=== PATIENT | female | born 1945 | race Caucasian/White ===

== ENCOUNTER → 2016-11-19 | Day surgery (SDC) | payer MEDICARE, OTHER ==
[~2016-11-19] VITALS: Ht 154.9 cm; Wt 63.5 kg
[~2016-11-19] MED LIST: CHLO25TA2 PO; HYALURONIDASE/LIDOCAINE/EPINEPHRINE/BUPIVACAINE 4.5 ML SYR LEFT EYE ONE; HYALURONIDASE/LIDOCAINE/EPINEPHRINE/BUPIVACAINE 6 ML SYR LEFT EYE ONE; HYALURONIDASE/LIDOCAINE/EPINEPHRINE/BUPIVACAINE 6 ML SYR ONE; K-TA10TA PO; MOBI15TA PO; NIFE30TA61 PO; PANT40TA3 PO; PROPARACAINE HCL 0.5% OPHT SOLN 15 ML BTL LEFT EYE ONE; TOBRAMYCIN/DEXAMETHASONE OPTH OINT 3.5 GM TUBE LEFT EYE ONE; TRAM50TA PO; VITA10003 PO; ZYRT10CA PO
[2016-11-19 08:00] VITALS: BP 139/77; PULSE 100; RESP 16; TEMP 98.1; O2SAT 99
[2016-11-19 08:05] VITALS: PULSE 100
[2016-11-19] MEDS: TROPICAMIDE 1% OPHT SOLN 15 ML BTL LEFT EYE SCH ×4 (08:10→08:25)
[2016-11-19] MEDS: CYCLOPENTOLATE HCL 1% OPHT SOLN 2 ML BTL LEFT EYE SCH ×4 (08:10→08:25)
[2016-11-19] MEDS: FLURBIPROFEN 0.03% OPHT SOLN 2.5 ML BTL LEFT EYE SCH ×4 (08:10→08:25)
[2016-11-19] MEDS: PHENYLEPHRINE HCL 10% OPTH SOLN 5 ML BTL LEFT EYE SCH ×4 (08:10→08:25)
[2016-11-19] MEDS: SODIUM CHLORID 0.9% 500 ML INJ 500 ML ONE ×2 (08:49→10:00)
[2016-11-19] MEDS: PROPOFOL 200 MG/20 ML AMP ONE ×2 (08:57→10:04)
[2016-11-19 09:00] VITALS: PULSE 89
[2016-11-19] MEDS: MIDAZOLAM HCL 2 MG/2 ML VIAL ONE ×2 (09:11→10:00)
--- NOTE | 2016-11-19 10:11 | MP ---
cc: REINIER CARRASQUILLO M.D. [facility] #[id number] DATE OF SURGERY 11/19/2016 PREOPERATIVE DIAGNOSIS Visually significant cataract left eye. POSTOPERATIVE DIAGNOSIS Visually significant cataract left eye. OPERATION Phacoemulsification with posterior chamber lens implantation, left eye. SURGEON Reinier Carrasquillo MD ANESTHESIA Retrobulbar with MAC. COMPLICATIONS None PROCEDURE After informed consent was obtained, the patient was brought into the operative suite and placed on appropriate monitors by the Anesthesia Service. The patient had received a prior retrobulbar injection of local anesthetic by the Anesthesia Service in the holding area. The patient's operative eye was then prepped and draped in the usual sterile fashion. A wire lid speculum was placed. A paracentesis incision was made in the peripheral cornea with a 1 mm james keratome. The anterior chamber was filled with viscoelastic. The anterior chamber was then entered through a stepped, clear corneal incision using a sharp 3 mm james keratome. A circular tear capsulorrhexis was then made with a bent needle cystitome. Following hydrodissection of the lens nucleus with balanced saline, phacoemulsification of the nucleus was performed using a modified chopping technique. The remaining cortex was removed with irrigation/aspiration. The prior two procedures were both performed using the handpieces of the [employer] phaco unit. The capsular bag was then filled with viscoelastic. The intraocular lens was then injected into the capsular bag and positioned. The type of intraocular lens and its power can be found elsewhere in this chart. The remaining viscoelastic was then removed from the anterior chamber with the IA handpiece. The anterior chamber was reformed with balanced saline. The wound was then closed securely with stromal hydration. It was found to be watertight to an intraocular pressure of at least 30 mmHg by palpation. A small amount of balanced salt solution was then removed through the paracentesis site and the intraocular pressure at the end of the case was approximately 20 by palpation. All drapes were then removed. TobraDex ointment was then placed in the eye, which was closed beneath a semi-pressure patch dressing. The patient tolerated this procedure well and left the operating room awake and alert. The patient is to follow-up in my office in the morning. MD CHIQUITA Cee/CHOCO /10:05 AM /10:09 AM
[2016-11-19 10:35] VITALS: BP 131/65; PULSE 100; RESP 18; TEMP 98; O2SAT 98
== END | disposition home or self-care (01) ==
LOC: CSDC 07:16
PROVIDERS: ATTEND Optometrist Occupational Vision
DX: H25.812 Combined forms of age-related cataract, left eye (principal)
CPT/HCPCS: 00142; 66984; J2250; J7040; V2632

== ENCOUNTER → 2016-12-31 | Day surgery (SDC) | payer MEDICARE, OTHER ==
[~2016-12-31] VITALS: Ht 156.2 cm; Wt 66.0 kg
[~2016-12-31] MED LIST changes: +CYCLOPENTOLATE HCL 1% OPHT SOLN 2 ML BTL ONE; +FLURBIPROFEN 0.03% OPHT SOLN 2.5 ML BTL ONE; -HYALURONIDASE/LIDOCAINE/EPINEPHRINE/BUPIVACAINE 4.5 ML SYR LEFT EYE ONE; -HYALURONIDASE/LIDOCAINE/EPINEPHRINE/BUPIVACAINE 6 ML SYR LEFT EYE ONE; +LIDOCAINE HCL 1% 30 ML VIAL ONE; +LIDOCAINE HCL 2% JELLY 5 ML SYRINGE ONE; +MIDAZOLAM HCL 2 MG/2 ML VIAL ONE; +PHENYLEPHRINE HCL 10% OPTH SOLN 5 ML BTL ONE; -PROPARACAINE HCL 0.5% OPHT SOLN 15 ML BTL LEFT EYE ONE; +PROPARACAINE HCL 0.5% OPHT SOLN 15 ML BTL ONE; +PROPOFOL 200 MG/20 ML AMP ONE; +SODIUM CHLORID 0.9% 500 ML INJ 500 ML ONE; -TOBRAMYCIN/DEXAMETHASONE OPTH OINT 3.5 GM TUBE LEFT EYE ONE; +TROPICAMIDE 1% OPHT SOLN 15 ML BTL ONE
[2016-12-31 07:45] VITALS: BP 132/78; PULSE 101; RESP 16; TEMP 98.1; O2SAT 95
[2016-12-31 08:03] VITALS: PULSE 95
[2016-12-31] MEDS: TOBRAMYCIN/DEXAMETHASONE OPTH OINT 3.5 GM TUBE ONE ×2 (09:06→09:15)
[2016-12-31 09:25] VITALS: TEMP 98.2
[2016-12-31 09:50] VITALS: BP 90/62; PULSE 98; RESP 16; O2SAT 99
--- NOTE | 2017-01-01 09:22 | MP ---
cc: REINIER CARRASQUILLO M.D. [facility] #[id number] DATE OF SURGERY 12/31/2016 PREOPERATIVE DIAGNOSIS Visually significant cataract right eye. POSTOPERATIVE DIAGNOSIS Visually significant cataract right eye. OPERATION Phacoemulsification with posterior chamber lens implantation, right eye. SURGEON Reinier Carrasquillo MD ANESTHESIA Retrobulbar with MAC. COMPLICATIONS None PROCEDURE After informed consent was obtained, the patient was brought into the operative suite and placed on appropriate monitors by the Anesthesia Service. The patient had received a prior retrobulbar injection of local anesthetic by the Anesthesia Service in the holding area. The patient's operative eye was then prepped and draped in the usual sterile fashion. A wire lid speculum was placed. A paracentesis incision was made in the peripheral cornea with a 1 mm james keratome. The anterior chamber was filled with viscoelastic. The anterior chamber was then entered through a stepped, clear corneal incision using a sharp 3 mm james keratome. A circular tear capsulorrhexis was then made with a bent needle cystitome. Following hydrodissection of the lens nucleus with balanced saline, phacoemulsification of the nucleus was performed using a modified chopping technique. The remaining cortex was removed with irrigation/aspiration. The prior two procedures were both performed using the handpieces of the [employer] phaco unit. The capsular bag was then filled with viscoelastic. The intraocular lens was then injected into the capsular bag and positioned. The type of intraocular lens and its power can be found elsewhere in this chart. The remaining viscoelastic was then removed from the anterior chamber with the IA handpiece. The anterior chamber was reformed with balanced saline. The wound was then closed securely with stromal hydration. It was found to be watertight to an intraocular pressure of at least 30 mmHg by palpation. A small amount of balanced salt solution was then removed through the paracentesis site and the intraocular pressure at the end of the case was approximately 20 by palpation. All drapes were then removed. TobraDex ointment was then placed in the eye, which was closed beneath a semi-pressure patch dressing. The patient tolerated this procedure well and left the operating room awake and alert. The patient is to follow-up in my office in the morning. MD CHIQUITA Cee/CHOCO /10:15 AM /9:21 AM
== END | disposition home or self-care (01) ==
LOC: CSDC 07:00
PROVIDERS: ATTEND Optometrist Occupational Vision
DX: H25.811 Combined forms of age-related cataract, right eye (principal)
CPT/HCPCS: 00142; 66984; J2250; J7040; V2632

== ENCOUNTER 2017-11-23 18:25 | Inpatient (IN) | payer MEDICARE, OTHER ==
[~2017-11-23] VITALS: Ht 154.9 cm; Wt 59.5 kg
[~2017-11-23 18:25] MED LIST changes: -CYCLOPENTOLATE HCL 1% OPHT SOLN 2 ML BTL ONE; -FLURBIPROFEN 0.03% OPHT SOLN 2.5 ML BTL ONE; -HYALURONIDASE/LIDOCAINE/EPINEPHRINE/BUPIVACAINE 6 ML SYR ONE; -LIDOCAINE HCL 1% 30 ML VIAL ONE; -LIDOCAINE HCL 2% JELLY 5 ML SYRINGE ONE; -MIDAZOLAM HCL 2 MG/2 ML VIAL ONE; -PHENYLEPHRINE HCL 10% OPTH SOLN 5 ML BTL ONE; -PROPARACAINE HCL 0.5% OPHT SOLN 15 ML BTL ONE; -PROPOFOL 200 MG/20 ML AMP ONE; -SODIUM CHLORID 0.9% 500 ML INJ 500 ML ONE; -TROPICAMIDE 1% OPHT SOLN 15 ML BTL ONE
[2017-11-23 18:39] VITALS: BP 91/58; PULSE 88; RESP 20; TEMP 97.4; O2SAT 95
[2017-11-23] MEDS ORDERED: SODIUM CHLORIDE 0.9% FLUSH 10 ML FLUSH IVF PRN (19:15)
[2017-11-23] MEDS ORDERED: ONDANSETRON HCL 4 MG/2 ML VIAL IVP ONE (19:15)
--- NOTE | 2017-11-23 19:15 | PD ---
HPI Chief Complaint: GI Complaint Time Seen by Provider: 18:49 Travel History International Travel<30 days: No Contact w/Intl Traveler<30days: No Traveled to known affect area: No History of Present Illness HPI 72-year-old female presents to the emergency department via EMS for evaluation of generalized weakness, nausea. Patient states she was diagnosed with congestive heart failure in August. She states she was admitted to [facility] on November 06 and released on November 15. She states that today, she has been so weak that she has been unable to get herself out of the bed to her walker. She reports history of diarrhea for several months, but her primary care physician gave her Lomotil which helps. She states that she had one episode of diarrhea today. She reports nausea. She also reports decreased appetite. She states she has chronic shortness of breath. She denies any chest pain. Upon palpation, she is epigastric tenderness to palpation of her abdomen. Patient has 3+ pitting edema to her bilateral lower extremities. She states it has been like this since she was discharged on April [facility]. No exacerbating or alleviating factors. Moderate severity. PFSH Past Medical History Arthritis: Yes Asthma: No Autoimmune Disease: No Blood Disorders: No Cancer: No Cardiovascular Problems: No Chemotherapy: No COPD: No Diabetes: No Endocrine: No GERD: Yes Genitourinary: No Hepatitis: No Hiatal Hernia: Yes Immune Disorder: No Musculoskeletal: Yes (ARTHRITIS LOWER BACK, HANDS, FEET) Neurologic: No Psychiatric: No Reproductive: No Respiratory: Yes (ENVIRONMENTAL ALLERGIES, BRONCHITIS) Radiation Therapy: No Thyroid Disease: No Ulcer: No Past Surgical History Abdominal Surgery: Yes (OBINNA.,INCISIONAL HERNIA REPAIR) AICD: No Cardiac Surgery: No Ear Surgery: No Endocrine Surgery: Yes Eye Surgery: Yes (LEFT CATARACT SURGERY) Genitourinary Surgery: Yes (URETHROTOMY) Gynecologic Surgery: No Joint Replacement: Yes (BILAT. HIP REPL.) Oral Surgery: No Pacemaker: No Thoracic Surgery: No Social History Alcohol Use: Yes (1-2 WINE 2 OR 3 X / WEEK) Tobacco Use: No Substance Use: No Allergies-Medications (Allergen,Severity, Reaction): Coded Allergies: codeine (Unverified Allergy, Severe, ITCH, 06/29/17) penicillin G (Unverified Allergy, Severe, RASH, 06/29/17) vancomycin (Unverified Allergy, Severe, HIVES, EDEMA/SWELLING, 06/29/17) Uncoded Allergies: ANGIOTENSIN RECEPTOR MARIA VICTORIA (Adverse Reaction, Severe, Cough, 11/19/16) Reported Meds & Prescriptions Reported Meds & Active Scripts Active Reported Diphenoxylate-Atropine 2.5-0.025 Mg Tab 1 Tab PO Q6H PRN Folic Acid 0.4 Mg Tab 1 Mg PO DAILY Vitamin D3 (Cholecalciferol) 1,000 Unit Cap 1,000 Units PO DAILY Furosemide 40 Mg Tab 40 Mg PO DAILY Pantoprazole (Pantoprazole Sodium) 40 Mg Tab 40 Mg PO DAILY K-Tab (Potassium Chloride) 10 Meq Tab 10 Meq PO DAILY Review of Systems Except as stated in HPI: all other systems reviewed are Neg Physical Exam Narrative GENERAL: Well-nourished, well-developed female patient, afebrile. SKIN: Focused skin assessment warm/dry. HEAD: Normocephalic. Atraumatic. EYES: No scleral icterus. No injection or drainage. NECK: Supple, trachea midline. No JVD or lymphadenopathy. CARDIOVASCULAR: Regular rate and rhythm without murmurs, gallops, or rubs. RESPIRATORY: Breath sounds equal bilaterally. No accessory muscle use. Lungs sounds clear to auscultation, diminished right base. GASTROINTESTINAL: Abdomen soft and nondistended. She has epigastric tenderness to palpation. MUSCULOSKELETAL: No cyanosis. Patient has pitting 3+ edema to the bilateral lower extremities. BACK: Nontender without obvious deformity. No CVA tenderness. Data Data Last Documented VS Vital Signs Date Time Temp Pulse Resp B/P (MAP) Pulse Ox O2 Delivery O2 Flow Rate FiO2 11/23/17 21:00 92 16 93/66 (75) 11/23/17 18:39 97.4 95 Orders Orders Electrocardiogram (11/23/17 19:08) Complete Blood Count With Diff (11/23/17 19:08) Comprehensive Metabolic Panel (11/23/17 19:08) Magnesium (Mg) (11/23/17 19:08) B-Type Natriuretic Peptide (11/23/17 19:08) Ckmb (Isoenzyme) Profile (11/23/17 19:08) Troponin I (11/23/17 19:08) Act Partial Throm Time (Ptt) (11/23/17 19:08) Prothrombin Time / Inr (Pt) (11/23/17 19:08) Urinalysis - C+S If Indicated (11/23/17 19:08) Chest, Single Ap (11/23/17 19:08) Ecg Monitoring (11/23/17 19:08) Iv Access Insert/Monitor (11/23/17 19:08) Oximetry (11/23/17 19:08) Ondansetron Inj (Zofran Inj) (11/23/17 19:15) Sodium Chloride 0.9% Flush (Ns Flush) (11/23/17 19:15) Lipase (11/23/17 19:08) Ct Abd/Pel W Iv Contrast(Rout) (11/23/17 ) Lactic Acid Sepsis Protocol (11/23/17 19:57) Blood Culture (11/23/17 19:57) Admit Order (Ed Use Only) (11/23/17 21:43) Aspirin Chew (Aspirin Chew) (11/23/17 21:45) Labs Laboratory Tests Test 11/23/17 19:30 11/23/17 20:26 White Blood Count 7.1 TH/MM3 Red Blood Count 4.48 MIL/MM3 Hemoglobin 13.4 GM/DL Hematocrit 40.4 % Mean Corpuscular Volume 90.3 FL Mean Corpuscular Hemoglobin 30.0 PG Mean Corpuscular Hemoglobin Concent 33.2 % Red Cell Distribution Width 17.6 % Platelet Count 143 TH/MM3 Mean Platelet Volume 8.6 FL Neutrophils (%) (Auto) 80.2 % Lymphocytes (%) (Auto) 15.6 % Monocytes (%) (Auto) 3.9 % Eosinophils (%) (Auto) 0.0 % Basophils (%) (Auto) 0.3 % Neutrophils # (Auto) 5.7 TH/MM3 Lymphocytes # (Auto) 1.1 TH/MM3 Monocytes # (Auto) 0.3 TH/MM3 Eosinophils # (Auto) 0.0 TH/MM3 Basophils # (Auto) 0.0 TH/MM3 CBC Comment DIFF FINAL Differential Comment Prothrombin Time 15.6 SEC Prothromb Time International Ratio 1.5 RATIO Activated Partial Thromboplast Time 28.4 SEC Blood Urea Nitrogen 30 MG/DL Creatinine 1.40 MG/DL Random Glucose 84 MG/DL Total Protein 6.7 GM/DL Albumin 2.8 GM/DL Calcium Level 8.2 MG/DL Magnesium Level 1.2 MG/DL Alkaline Phosphatase 74 U/L Aspartate Amino Transf (AST/SGOT) 39 U/L Alanine Aminotransferase (ALT/SGPT) 17 U/L Total Bilirubin 0.8 MG/DL Sodium Level 134 MEQ/L Potassium Level 4.4 MEQ/L Chloride Level 100 MEQ/L Carbon Dioxide Level 17.5 MEQ/L Anion Gap 17 MEQ/L Estimat Glomerular Filtration Rate 37 ML/MIN Total Creatine Kinase 41 U/L Troponin I 0.16 NG/ML B-Type Natriuretic Peptide 3089 PG/ML Lipase 145 U/L Lactic Acid Level 4.0 mmol/L [facility] Medical Decision Making Medical Screen Exam Complete: Yes Emergency Medical Condition: Yes Medical Record Reviewed: Yes Differential Diagnosis Electrolyte abnormality versus dehydration versus UTI versus pneumonia versus diverticulitis versus CHF exacerbation Narrative Course 72-year-old female presents to the emergency department via EMS for evaluation of generalized weakness, unable to get herself out of bed with her walker today. EKG, CBC, CMP, magnesium, BNP, CK, troponin, lipase, PTT, PTT/INR, UA are ordered and pending. Chest x-ray is ordered and pending. CT abdomen/ pelvis with IV contrast is ordered and pending. Patient is given Zofran 4 mg IV. EKG shows sinus tachycardia, heart rate 106. CBC shows no acute abnormality. CMP shows low bicarbonate 117.5, anion gap 17, BUN 30, cardiac 1.40. Lipase is 145. CK is 41. Troponin is 0.16. Magnesium is 1.2. BNP is 3089. Lactic acid is 4.0. PT is 15.7, INR 1.5, PTT 28.4. UA is pending. Chest x-ray shows right greater than left pleural effusions and basilar consolidation. CT abdomen /pelvis is pending. Dr. Nur report healthcare was in the emergency department. He has seen and evaluated the patient. He was able to review some of the previous records from [facility]. Apparently, her been occurring are elevated from her baseline. Her lactic acid was 3.0 there. He would like the patient to get albumin followed by Wendy and admitted. He will follow up on CT scan. He states she had a CT the abdomen/pelvis done at [facility] which showed nothing acute. Diagnosis Primary Impression: CHF exacerbation Qualified Codes: I50.9 - Heart failure, unspecified Additional Impressions: Lactic acidosis Elevated troponin Hypotension Qualified Codes: I95.9 - Hypotension, unspecified Admitting Information Admitting Physician Requests: Admit Andree Matt Nov 23, 2017 19:15
--- NOTE | 2017-11-23 19:47 | RADRPT ---
EXAM DATE/TIME: 11/23/2017 19:39 [facility] COMPARISON: No previous studies available for comparison. INDICATIONS : Short of breath. MEDICAL HISTORY : Congestive heart failure. SURGICAL HISTORY : None. ENCOUNTER: Initial ACUITY: 1 day PAIN SCORE: 1/10 LOCATION: Bilateral chest FINDINGS: There are moderate right and small left pleural effusions with basilar consolidation noted. No pneumo thorax. Mild cardiomegaly noted. CONCLUSION: Right greater than left pleural effusions and basilar consolidation. Vazquez Perdue MD on November 23, 2017 at 19:44 Board Certified Radiologist. This report was verified electronically.
[2017-11-23 20:00] VITALS: BP 85/58; PULSE 100; RESP 18
[2017-11-23 20:11] LABS: AUTOMATED NEUTROPHIL # 5.7 TH/MM3 (1.8-7.7); BASOPHIL % 0.3 % (0.0-2.0); HEMATOCRIT 40.4 % (35.0-46.0); HEMOGLOBIN 13.4 GM/DL (11.6-15.3); LYMPH % 15.6 % (9.0-44.0); LYMPHOCYTE # 1.1 TH/MM3 (1.0-4.8); MEAN CELL VOLUME 90.3 FL (80.0-100.0); MEAN CORPUSCULAR HGB CONC 33.2 % (32.0-36.0); MEAN PLATELET VOLUME 8.6 FL (7.0-11.0); MONO % 3.9 % (0.0-8.0); MONOCYTE # 0.3 TH/MM3 (0-0.9); NEUT % 80.2 % (16.0-70.0); PLATELET COUNT 143 TH/MM3 (150-450); RED BLOOD COUNT 4.48 MIL/MM3 (4.00-5.30); RED CELL DISTRIBUTION WIDTH 17.6 % (11.6-17.2); WHITE BLOOD COUNT 7.1 TH/MM3 (4.0-11.0)
[2017-11-23 20:18] LABS: INTERNATIONAL NORMALIZED RATIO 1.5 RATIO; PROTHROMBIN TIME - PATIENT 15.6 SEC (9.8-11.6)
[2017-11-23 20:27] LABS: ALBUMIN 2.8 GM/DL (3.4-5.0); AST (GOT) 39 U/L (15-37); BICARBONATE 17.5 MEQ/L (21.0-32.0); BLOOD UREA NITROGEN 30 MG/DL (7-18); CALCIUM 8.2 MG/DL (8.5-10.1); CHLORIDE 100 MEQ/L (98-107); GLOMERULAR FILTRATION RATE 37 ML/MIN (>89); GLUCOSE,RANDOM 84 MG/DL (74-106); LIPASE 145 U/L (73-393); MAGNESIUM 1.2 MG/DL (1.5-2.5); SODIUM (NA) 134 MEQ/L (136-145)
[2017-11-23 20:28] LABS: ALT (GPT) 17 U/L (10-53)
[2017-11-23 20:32] LABS: ALKALINE PHOSPHATASE 74 U/L (45-117); TOTAL BILIRUBIN ADULT 0.8 MG/DL (0.2-1.0); TOTAL PROTEIN 6.7 GM/DL (6.4-8.2); TROPONIN I 0.16 NG/ML (0.02-0.05)
[2017-11-23 21:00] VITALS: BP 93/66; PULSE 92; RESP 16
[2017-11-23] MEDS ORDERED: DIPH2.5T14 PO (21:39)
[2017-11-23] MEDS ORDERED: FURO40TA PO (21:39)
[2017-11-23] MEDS ORDERED: FOLI400T PO (21:39)
[2017-11-23] MEDS ORDERED: CHOL10008 PO (21:39)
[2017-11-23] MEDS ORDERED: ALBUMIN 25% INJ 50 ML IV ONE (21:45)
[2017-11-23] MEDS ORDERED: ASPIRIN 81 MG CHEW TAB CHEW ONE (21:45)
[2017-11-23] MEDS ORDERED: IODIXANOL 320 MG/ML 10 ML VIAL (for Rad CT) IVCONTRAST ONE (21:55)
--- NOTE | 2017-11-23 22:11 | RADRPT ---
EXAM DATE/TIME: 11/23/2017 21:30 [facility] COMPARISON: CHEST SINGLE AP, November 23, 2017, 19:39. INDICATIONS : Abdominal pain, general weakness and diarrhea. IV CONTRAST: 50 cc Visipaque (iodixanol) IV ORAL CONTRAST: No oral contrast ingested. RADIATION DOSE: 6.64 CTDIvol (mGy) MEDICAL HISTORY : Hypertension. Hernia, hiatal. Gastroesophageal reflux disease.IBS. SURGICAL HISTORY : Cholecystectomy. Bilateral hip replacements. ENCOUNTER: Initial ACUITY: 1 month PAIN SCALE: 5/10 LOCATION: All quadrants. TECHNIQUE: Volumetric scanning of the abdomen and pelvis was performed. Using automated exposure control and ad justment of the mA and/or kV according to patient size, radiation dose was kept as low as reasonably achievable to obtain optimal diagnostic quality images. DICOM format image data is available electro nically for review and comparison. FINDINGS: LOWER LUNGS: Moderate right and small left pleural effusions are seen with compressive atelectasis. There is a com bination of atelectasis and pneumonia of the right lower lobe. There is a moderate pericardial effusi on. LIVER: 9 mm hypodensity of the right hepatic lobe that is very likely benign. No other focal hepatic lesions are demonstrated. Patient has had previous cholecystectomy. SPLEEN: Normal size without lesion. PANCREAS: Within normal limits. KIDNEYS: There is an approximately 23 mm cyst of the mid zone of the right kidney. Along its inferior margin i s questionable mildly enhancing soft tissue. No stones or obstruction seen of either kidney. ADRENAL GLANDS: Within normal limits. VASCULAR: There is no aortic aneurysm. BOWEL/MESENTERY: No obstruction or acute inflammatory changes are demonstrated. There is nonspecific fluid in the colo n. No free fluid. No lymphadenopathy. ABDOMINAL WALL: Within normal limits. RETROPERITONEUM: There is no lymphadenopathy. BLADDER: No wall thickening or mass. REPRODUCTIVE: Within normal limits. INGUINAL: There is no lymphadenopathy or hernia. MUSCULOSKELETAL: No acute bony abnormality demonstrated. Patient has had previous bilateral hip arthroplasties and the re is associated metallic streak artifact CONCLUSION: 1. No obstruction or acute inflammatory changes are seen in the abdomen or pelvis. 2. Apparent complex cystic and solid mass of the mid zone of the right kidney. A followup MRI of the abdomen is recommended with and without contrast in approximately 3 months. This may be helpful in fu rther characterizing a small, probably benign but nonspecific hypodensity of the liver. 3. Nonspecific right greater than left pleural effusions and basilar atelectasis. There is an area of nonenhancing right lower lobe pulmonary parenchyma compatible with pneumonia. Infection and post obs tructive process would be in the differential. After treatment for presumed pneumonia, a followup CT of the chest, preferably with intravenous contrast, is recommended within the next couple of months, sooner if felt clinically indicated. 4. Also a nonspecific moderate size pericardial effusion. Vazquez Perdue MD on November 23, 2017 at 22:01 Board Certified Radiologist. This report was verified electronically.
--- NOTE | 2017-11-23 22:13 | HHI.HP ---
HPI Service [facility] Hospitalists Primary Care Physician Shaka Rose M.D. Admission Diagnosis CHF exacerbation, lactic acidosis, hypotension Chief Complaint: LE edema, increased weakness, low BP Travel History International Travel<30 Days: No Contact w/Intl Traveler <30 Da: No Traveled to Known Affected Are: No History of Present Illness 72-year-old female with multiple medical problems presents to the emergency department via EMS for evaluation of generalized weakness, nausea. Patient states she was diagnosed with congestive heart failure in August. She states she was admitted to [facility] on November 08 and released on November 15, 2017. She states that today, she has been so weak that she has been unable to get herself out of the bed to her walker. She reports history of diarrhea for several months, but her primary care physician gave her Lomotil which helps. She states that she had one episode of diarrhea today. She reports nausea, but no vomiting. She also reports decreased appetite. She states she has chronic shortness of breath. She denies any chest pain. Patient has 3+ pitting edema to her bilateral lower extremities which she and her son report started when she was admitted to the hospital recently. I have reviewed her outpatient records from [facility] which revealed that she was admitted in late October 2017 for sepsis syndrome and apparent congestive heart failure. Her ejection fracture was around 20-25% at that time. He did with IV antibiotics and pressors. Per outpatient notes the cultures never grew anything. Patient denies fever or chills at home. Specifically denies any productive cough. She has just finished some antibiotics from the recent hospitalization. Review of Systems Constitutional: COMPLAINS OF: Fatigue, Weight loss Eyes: DENIES: Blurred vision, Diplopia, Eye inflammation, Eye pain, Vision loss , Photosensitivity, Double Vision Respiratory: COMPLAINS OF: Shortness of breath, DENIES: Apneas, Cough, Snoring , Wheezing, Hemoptysis, Sputum production Cardiovascular: COMPLAINS OF: Dyspnea on Exertion, Lower Extremity Edema, Orthopnea, DENIES: Chest pain, Palpitations, Syncope, PND, Claudication Gastrointestinal: COMPLAINS OF: Abdominal pain, Diarrhea, GERD, Nausea, DENIES : Black stools, Bloody stools, BRB per rectum, Constipation, Reflux, Vomiting, Difficulty Swallowing, Anorexia, See HPI Musculoskeletal: COMPLAINS OF: Joint pain, Back pain Integumentary: DENIES: Abnormal pigmentation, Pruritus, Rash, Nail changes, Breast masses, Breast skin changes, Nipple discharge Hematologic/lymphatic: COMPLAINS OF: Bruising Neurologic: COMPLAINS OF: Abnormal gait Psychiatric: COMPLAINS OF: Anxiety Past Family Social History Past Medical History Cardiomyopathy with an EF around 20% based on echo done in October 2017 Chronic bronchitis Colitis with chronic diarrhea of unknown etiology Fatty liver GERD Hypertension Hyperlipidemia Hyperthyroidism Hypomagnesemia Peripheral neuropathy Polycythemia vera [place] history of sepsis with prior infection with MRSA and strep a B12 and vitamin D deficiency Past Surgical History Cataract surgery Cholecystectomy Total hip replacement on the right Ureterostomy Ventral hernia repair in 1995 Reported Medications Zyrtec Allergy (Cetirizine HCl) 10 Mg Cap 2.5 Mg PO DAILY Tramadol (Tramadol HCl) 50 Mg Tab 50 Mg PO Q8H PRN Vitamin D-3 (Cholecalciferol) 1,000 Unit Tab 1,000 Units PO DAILY Chlorthalidone 25 Mg Tab 25 Mg PO DAILY Nifedipine ER 24 HR (Nifedipine) 30 Mg Tab 30 Mg PO DAILY Pantoprazole (Pantoprazole Sodium) 40 Mg Tab 40 Mg PO DAILY K-Tab (Potassium Chloride) 10 Meq Tab 10 Meq PO DAILY Mobic (Meloxicam) 15 Mg Tab 15 Mg PO VERÓNICA Allergies: Coded Allergies: codeine (Unverified Allergy, Severe, ITCH, 06/29/17) penicillin G (Unverified Allergy, Severe, RASH, 06/29/17) vancomycin (Unverified Allergy, Severe, HIVES, EDEMA/SWELLING, 06/29/17) Uncoded Allergies: ANGIOTENSIN RECEPTOR MARIA VICTORIA (Adverse Reaction, Severe, Cough, 11/19/16) Family History Noncontributory Social History No tobacco ever Did previously drink alcohol 2-3 times per week but hasn't drank anything the last week or so Lives alone but her son lives close by just down the street Originally from [place], moved here in 1973 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 SKIN: Distal extremities somewhat cool to touch. HEAD: Atraumatic. Normocephalic. No temporal or scalp tenderness. EYES: Pupils equal round and reactive. Extraocular motions intact. No scleral icterus. No injection or drainage. ENT: Nose without bleeding, purulent drainage or septal hematoma. Airway patent. NECK: Trachea midline. No JVD or lymphadenopathy. Supple, nontender, no meningeal signs. CARDIOVASCULAR: Regular rate and rhythm without murmurs, gallops, or rubs. Rate around 100. RESPIRATORY: Some decreased breath sounds at the bases but otherwise relatively clear. Breath sounds equal bilaterally. No wheezes. Did not appreciate fine crackles. GASTROINTESTINAL: Abdomen soft, nondistended, mildly tender to palpation in epigastrium. No hepato-splenomegaly, or palpable masses. No guarding. MUSCULOSKELETAL: 3+ pitting edema bilateral lower extremities up to the knee. No calf tenderness. Distal feet somewhat cool to touch. NEUROLOGICAL: Awake and alert. Cranial nerves II through XII intact. Motor and sensory grossly within normal limits. Five out of 5 muscle strength in all muscle groups. Normal speech. Laboratory Laboratory Tests Test 11/23/17 19:30 11/23/17 20:26 White Blood Count 7.1 Red Blood Count 4.48 Hemoglobin 13.4 Hematocrit 40.4 Mean Corpuscular Volume 90.3 Mean Corpuscular Hemoglobin 30.0 Mean Corpuscular Hemoglobin Concent 33.2 Red Cell Distribution Width 17.6 Platelet Count 143 Mean Platelet Volume 8.6 Neutrophils (%) (Auto) 80.2 Lymphocytes (%) (Auto) 15.6 Monocytes (%) (Auto) 3.9 Eosinophils (%) (Auto) 0.0 Basophils (%) (Auto) 0.3 Neutrophils # (Auto) 5.7 Lymphocytes # (Auto) 1.1 Monocytes # (Auto) 0.3 Eosinophils # (Auto) 0.0 Basophils # (Auto) 0.0 CBC Comment DIFF FINAL Differential Comment Prothrombin Time 15.6 Prothromb Time International Ratio 1.5 Activated Partial Thromboplast Time 28.4 Blood Urea Nitrogen 30 Creatinine 1.40 Random Glucose 84 Total Protein 6.7 Albumin 2.8 Calcium Level 8.2 Magnesium Level 1.2 Alkaline Phosphatase 74 Aspartate Amino Transf (AST/SGOT) 39 Alanine Aminotransferase (ALT/SGPT) 17 Total Bilirubin 0.8 Sodium Level 134 Potassium Level 4.4 Chloride Level 100 Carbon Dioxide Level 17.5 Anion Gap 17 Estimat Glomerular Filtration Rate 37 Total Creatine Kinase 41 Troponin I 0.16 B-Type Natriuretic Peptide 3089 Lipase 145 Lactic Acid Level 4.0 Date/Time Source Procedure Growth Status 11/23/17 20:26 Blood Peripheral Aerobic Blood Culture Pending Received 11/23/17 20:26 Blood Peripheral Anaerobic Blood Culture Pending Received Result Diagram: 11/23/17192911/23/171929 Imaging Last 72 hours Impressions Chest X-Ray 11/23/171907 Signed Impressions: Service Date/Time: Thursday, November 23, 2017 19:39 - CONCLUSION: Right greater than left pleural effusions and basilar consolidation. MD Sunitha Alvarez VTE Risk Assessment Sunitha VTE Risk Assessment: Mod/High Risk (score >= 2) Sunitha Risk Assessment Model Point Value = 1 Point Value = 2 Point Value = 3 Point Value = 5 Age 41-60 Minor surgery BMI > 25 kg/m2 Swollen legs Varicose veins or History of unexplained or recurrent spontaneous Oral contraceptives or hormone replacement Sepsis (< 1 month) Serious lung disease, including pneumonia (< 1 month) Abnormal pulmonary function Acute myocardial infarction Congestive heart failure (< 1 month) History of inflammatory bowel disease Medical patient at bed rest Age 61-74 Arthroscopic surgery Major open surgery (> 45 min) Laparoscopic surgery (> 45 min) Malignancy Confined to bed (> 72 hours) Immobilizing plaster cast Central venous access Age >= 75 History of VTE Family history of VTE Factor V Leiden Prothrombin [id number] Lupus anticoagulant Anticardiolipin antibodies Elevated serum homocysteine Heparin-induced thrombocytopenia Other congenital or acquired thrombophilia Stroke (< 1 month) Elective arthroplasty Hip, pelvis, or leg fracture Acute spinal cord injury (< 1 month) Prophylaxis Regimen Total Risk Factor Score Risk Level Prophylaxis Regimen 0-1 Low Early ambulation 2 Moderate Order ONE of the following: *Sequential Compression Device (SCD) *Heparin 5000 units SQ BID 3-4 Higher Order ONE of the following medications: *Heparin 5000 units SQ TID *Enoxaparin/Lovenox 40 mg SQ daily (WT < 150 kg, CrCl > 30 mL/min) *Enoxaparin/Lovenox 30 mg SQ daily (WT < 150 kg, CrCl > 10-29 mL/min) *Enoxaparin/Lovenox 30 mg SQ BID (WT < 150 kg, CrCl > 30 mL/min) AND/OR *Sequential Compression Device (SCD) 5 or more Highest Order ONE of the following medications: *Heparin 5000 units SQ TID (Preferred with Epidurals) *Enoxaparin/Lovenox 40 mg SQ daily (WT < 150 kg, CrCl > 30 mL/min) *Enoxaparin/Lovenox 30 mg SQ daily (WT < 150 kg, CrCl > 10-29 mL/min) *Enoxaparin/Lovenox 30 mg SQ BID (WT < 150 kg, CrCl > 30 mL/min) AND *Sequential Compression Device (SCD) Assessment and Plan Problem List: (1) CHF exacerbation ICD Codes: I50.9 - Heart failure, unspecified Status: Acute Plan: EF around 20% on recent echo. Gently diurese as tolerated. Have cardiology see the patient. (2) Elevated troponin ICD Codes: R74.8 - Abnormal levels of other serum enzymes Status: Acute Plan: Likely associated with her renal insufficiency and cardiomyopathy. She denies any chest pain. Continue rule out protocol. (3) Hypotension ICD Codes: I95.9 - Hypotension, unspecified Status: Acute Plan: Chronic problem. Patient cannot tolerate any antihypertensives. Current blood pressure is similar to her baseline. (4) Lactic acidosis ICD Codes: E87.2 - Acidosis Status: Acute Plan: Questionable etiology. Similar presentation recently. Possibly associated with underlying cardiomyopathy and renal insufficiency. I do not see an obvious source of infection and her recent cultures were all negative. Given her multiple medical problems awaiting give a dose of Rocephin and Flagyl as she has been somewhat nauseated and has reflux with noted fluid in the right lung. I do not strongly suspect pneumonia given her additional presentation however. Code Status Full Discussed Condition With ER provider, Patient and her 2 sons, Fermin and Noel. Physician Certification 2 Midnight Certification Type: Admission for Inpatient Services Order for Inpatient Services The services are ordered in accordance with Medicare regulations or non- Medicare payer requirements, as applicable. In the case of services not specified as inpatient-only, they are appropriately provided as inpatient services in accordance with the 2-midnight benchmark. Estimated LOS (days): 3 days is the estimated time the patient will need to remain in the hospital, assuming treatment plan goals are met and no additional complications. Post-Hospital Plan: Not yet determined Problem Qualifiers (1) CHF exacerbation: Qualified Codes: I50.9 - Heart failure, unspecified (2) Hypotension: Qualified Codes: I95.9 - Hypotension, unspecified Norberto Nur MD PhD Nov 23, 2017 22:13
[2017-11-23] MEDS ORDERED: SODIUM CHLORIDE 0.9% FLUSH 10 ML FLUSH IV FLUSH PRN (22:15)
[2017-11-23] MEDS ORDERED: metroNIDAZOLE 500 MG INJ 100 ML IV ONE (23:00)
[2017-11-23] MEDS ORDERED: cefTRIAXone INJ 1,000 MG in SODIUM CHLORIDE 0.9% INJ 100 ML IV ONE (23:00)
[2017-11-23] MEDS ORDERED: FUROSEMIDE 40 MG/4 ML VIAL IV PUSH ONE (23:30)
[2017-11-23 23:48] VITALS: O2SAT 100
[2017-11-24] VITALS (17 sets, daily range): BP systolic 76–112; BP diastolic 51–66; PULSE 68–106; RESP 16–20; TEMP 96–98; O2SAT 94–99
[2017-11-24 02:09] LABS: BILIRUBIN, URINE NEG (NEG); BLOOD, URINE NEG (NEG); GLUCOSE,URINE NEG (NEG); HYALINE CAST, URINE 20 /lpf (RARE); KETONE, URINE NEG (NEG); MUCUS URINE FEW /lpf (OCC); NITRITE,URINE NEG (NEG); SQUAMOUS EPITHELIAL CELL URINE <1 /hpf (0-5); URINE COLOR YELLOW (YELLW/STRAW); URINE LEUKOCYTE ESTERASE TRACE (NEG)
[2017-11-24 02:22] LABS: FREE T3 1.39 PG/ML (2.18-3.98); FREE T4 1.41 NG/DL (0.76-1.46)
--- NOTE | 2017-11-24 08:52 | MB ---
cc: FRED MARTÍNEZ MD DATE OF CONSULTATION 11/24/2017 HISTORY OF PRESENT ILLNESS This is a 72-year-old woman who was admitted to the hospital for rather significant weakness. She has a history of nonischemic cardiomyopathy and was admitted to the hospital just before for exacerbation of her CHF and released on November 15. She had been doing fairly well but has become progressively weaker and has noted rather significant increase in her pedal edema. She has also had some weakness of her legs and notes that she is really unable to ambulate. She has chronic shortness of breath but this has not significantly worsened. No chest pain or palpitations have been present. Her medications at home have included only Lasix as her blood pressure generally runs 85-90 systolic and she has been unable to tolerate SUSHMA inhibitors or beta blockers. PAST MEDICAL HISTORY Otherwise significant for arthritis. SOCIAL HISTORY The patient has a glass of wine 2-3 times per week. She does not smoke or use recreational drugs. ALLERGIES 1. CODEINE. 2. PENICILLIN. 3. VANCOMYCIN. MEDICATIONS As noted above medications at home have included Lasix 40 mg daily and potassium 10 mEq daily. PHYSICAL EXAMINATION GENERAL: She is awake and alert. She is in no acute distress, resting comfortably in bed. VITAL SIGNS: Blood pressure 92/65, pulse 74. NECK: There is no neck vein distention. LUNGS: Essentially clear with decreased breath sounds in the right base. CARDIOVASCULAR: Regular rate and rhythm with no murmur or gallop. There is +3 pedal edema. ABDOMEN: Mild epigastric tenderness is noted with fullness of her liver. ASSESSMENT AND PLAN The patient has cardiomyopathy with what appears to be significant right-sided failure. We will continue her furosemide and try a milrinone infusion to see if we can stimulate diuresis and improve her overall fluid balance and improve her feelings of weakness and tiredness. MD LUTHER Thomas/HETAL /7:53 AM /8:28 AM
[2017-11-24] MEDS ORDERED: POTASSIUM CHLORIDE 10 MEQ CONTROLLED RELEASE TAB PO SCH (09:00)
[2017-11-24] MEDS ORDERED: FUROSEMIDE 40 MG TAB PO SCH (09:00)
--- NOTE | 2017-11-24 09:27 | HHI.PR ---
Subjective Remarks c/o increasing lower ext swelling and sob with exertion. Objective Vitals heart reg lung good air entry lucio abd s/nt ext 2-3plus edema Vital Signs Date Time Temp Pulse Resp B/P (MAP) Pulse Ox O2 Delivery O2 Flow Rate FiO2 11/24/17 08:09 97.3 93 16 87/62 (70) 97 11/24/17 06:00 92 11/24/17 05:00 97.3 74 20 92/65 (74) 97 11/24/17 05:00 92 11/24/17 04:00 68 11/24/17 01:00 90 11/24/17 01:00 96.0 99 20 88/56 (67) 94 11/24/17 00:34 11/23/17 23:48 100 Room Air 11/23/17 21:00 92 16 93/66 (75) 11/23/17 20:17 18 11/23/17 20:00 100 18 85/58 (67) 11/23/17 18:39 97.4 88 20 91/58 (69) 95 Result Diagram: 11/23/17192911/23/171929 Imaging Last 72 hours Impressions Chest X-Ray 11/23/171907 Signed Impressions: Service Date/Time: Thursday, November 23, 2017 19:39 - CONCLUSION: Right greater than left pleural effusions and basilar consolidation. Vazquez Perdue MD A/P Problem List: (1) CHF exacerbation ICD Codes: I50.9 - Heart failure, unspecified Status: Acute Plan: 1. acute systolic chf exacerbation. ef 20percent 2. hypotension 3. renal insufficiency seen by cardiology milrinone added to po lasix bp to low for russell/bb would consider adding scheduled iv albumen dvt prophylaxis PT eval (2) Hypotension ICD Codes: I95.9 - Hypotension, unspecified Status: Acute Plan: see above Problem Qualifiers (1) CHF exacerbation: Qualified Codes: I50.9 - Heart failure, unspecified (2) Hypotension: Qualified Codes: I95.9 - Hypotension, unspecified Benny Patel MD Nov 24, 2017 09:27
[2017-11-24] MEDS ORDERED: MILRINONE IV ONE (10:00)
[2017-11-24] MEDS ORDERED: SODIUM CHLORIDE 0.9% IV ONE (10:00)
[2017-11-24] MEDS: SODIUM CHLORIDE 0.9% FLUSH 10 ML FLUSH IV FLUSH SCH ×2 (13:15→21:00)
[2017-11-24] MEDS: ALBUMIN 25% INJ 100 ML IV SCH ×2 (13:15→23:33)
[2017-11-24] MEDS: ASPIRIN 81 MG CHEW TAB CHEW SCH (13:15)
[2017-11-24 14:32] LABS: BICARBONATE 16.8 MEQ/L (21.0-32.0); C-REACTIVE PROTEIN 1.1 MG/DL (0.00-0.30); CALCIUM 8.2 MG/DL (8.5-10.1); CREATININE 1.34 MG/DL (0.50-1.00)
[2017-11-24 14:36] LABS: TROPONIN I 0.19 NG/ML (0.02-0.05)
[2017-11-24] MEDS: MAGNESIUM SULFATE 1 GM PREMIX 100 ML IV SCH ×2 (17:00→18:26)
[2017-11-24] MEDS: MILRINONE INJ 20 MG in SODIUM CHLORIDE 0.9% INJ 80 ML IV SCH ×2 (18:28→23:34)
--- NOTE | 2017-11-24 21:19 | EKG ---
Date Performed: 11/24/2017 Time Performed: 03:47:08 PTAGE: 72 years EKG: Sinus arrhythmia Left axis deviation Inferior infarct - age undetermined Possible anterior infarct - age undetermined Generalized low QRS voltages Abnormal ECG PREVIOUS TRACING : 11/23/2017 19.30 Compared to prior tracing no significant change DOCTOR: Ming Valadez Interpretating Date/Time 11/24/2017 21:18:15
--- NOTE | 2017-11-24 21:47 | EKG ---
Date Performed: 11/23/2017 Time Performed: 19:30:38 PTAGE: 72 years EKG: SINUS TACHYCARDIA POSSIBLE LEFT ATRIAL ENLARGEMENT MARKED LEFT AXIS DEVIATION LOW QRS VOLTA GE POSSIBLE ANTERIOR AND INFERIOR MYOCARDIAL INFARCTION ABNORMAL ECG Compared to the PREVIOUS TRACING low voltage and anterior and inferior Q waves present DOCTOR: Ming Valadez Interpretating Date/Time 11/24/2017 21:46:14
[2017-11-25] VITALS (9 sets, daily range): BP systolic 82–95; BP diastolic 46–60; PULSE 95–127; RESP 14–20; TEMP 97.4–98.1; O2SAT 94–99
[2017-11-25] MEDS ORDERED: POTASSIUM CHLORIDE 10 MEQ CAP PO SCH (09:00)
--- NOTE | 2017-11-25 09:11 | HHI.PR ---
Subjective Remarks no new complaints refused hough Objective Vitals nad heart reg lung cta abd s/nt ext 2-3plus pitting edema Vital Signs Date Time Temp Pulse Resp B/P (MAP) Pulse Ox O2 Delivery O2 Flow Rate FiO2 11/25/17 03:00 97.9 104 16 95/46 (62) 99 11/25/17 03:00 114 11/24/17 23:34 94 81/66 11/24/17 23:00 101 11/24/17 23:00 98.0 99 16 91/66 (74) 99 11/24/17 20:45 94 Room Air 11/24/17 20:44 97.6 106 112/59 (76) 94 11/24/17 19:00 98 11/24/17 18:28 99 101/64 11/24/17 15:20 97.5 90 18 89/52 (64) 97 11/24/17 15:00 96 11/24/17 12:00 96 11/24/17 11:00 97.4 90 18 76/51 (59) 96 11/24/17 10:00 98 11/24/17 09:57 97 21 Result Diagram: 11/23/17 1930 11/24/17 1350 Imaging Last 72 hours Impressions Chest X-Ray 11/23/17 1908 Signed Impressions: Service Date/Time: Thursday, November 23, 2017 19:39 - CONCLUSION: Right greater than left pleural effusions and basilar consolidation. Vazquez Perdue MD A/P Problem List: (1) CHF exacerbation ICD Codes: I50.9 - Heart failure, unspecified Status: Acute Plan: 1. acute systolic chf exacerbation. ef 20percent 2. hypotension 3. renal insufficiency seen by cardiology moved to cardiac icu milrinone/iv lasix/iv albumen monitor urine output and bmp bp to low for russell/bb dvt prophylaxis PT eval (2) Hypotension ICD Codes: I95.9 - Hypotension, unspecified Status: Acute Plan: see above Problem Qualifiers (1) CHF exacerbation: Qualified Codes: I50.9 - Heart failure, unspecified (2) Hypotension: Qualified Codes: I95.9 - Hypotension, unspecified Benny Patel MD Nov 25, 2017 09:11
[2017-11-25] MEDS: ASPIRIN 81 MG CHEW TAB CHEW SCH (09:46)
[2017-11-25] MEDS: ALBUMIN 25% INJ 100 ML IV SCH ×2 (09:46→17:41)
[2017-11-25] MEDS: SODIUM CHLORIDE 0.9% FLUSH 10 ML FLUSH IV FLUSH SCH ×2 (09:47→21:33)
[2017-11-25] MEDS: FUROSEMIDE 40 MG/4 ML VIAL IV PUSH SCH ×2 (09:47→17:41)
[2017-11-25 10:12] LABS: BICARBONATE 23.2 MEQ/L (21.0-32.0); CALCIUM 8.2 MG/DL (8.5-10.1); CREATININE 1.19 MG/DL (0.50-1.00); MAGNESIUM 1.6 MG/DL (1.5-2.5)
[2017-11-25] MEDS: POTASSIUM CHLORIDE 20 MEQ CONTROLLED RELEASE TAB PO SCH ×2 (10:52→14:58)
[2017-11-25] MEDS ORDERED: DIGOXIN 0.5 MG/2 ML VIAL ONE (13:50)
[2017-11-25] MEDS ORDERED: DIGOXIN 0.5 MG/2 ML VIAL IV PUSH ONE (14:00)
[2017-11-25] MEDS ORDERED: POTASSIUM CHLORIDE 20 MEQ CONTROLLED RELEASE TAB PO SCH (14:30)
[2017-11-25] MEDS: MILRINONE INJ 20 MG in SODIUM CHLORIDE 0.9% INJ 80 ML IV SCH (14:50)
[2017-11-25] MEDS: POTASSIUM CHLORIDE 20 MEQ PWD PACKET PO SCH (18:00)
[2017-11-26] VITALS (10 sets, daily range): BP systolic 88–117; BP diastolic 56–70; PULSE 99–140; RESP 14–20; TEMP 97.5–98.3; O2SAT 94–99
[2017-11-26] MEDS: ONDANSETRON HCL 4 MG/2 ML VIAL IV PUSH PRN (01:30)
[2017-11-26] MEDS: MILRINONE INJ 20 MG in SODIUM CHLORIDE 0.9% INJ 80 ML IV SCH ×3 (03:08→20:30)
[2017-11-26 06:15] LABS: BICARBONATE 20.5 MEQ/L (21.0-32.0); CREATININE 0.98 MG/DL (0.50-1.00)
--- NOTE | 2017-11-26 07:48 | PD.CARD.PN ---
Subjective Subjective Remarks feels better. edema much improved Objective Medications Current Medications Medications (Trade) Dose Ordered Sig/Gwendolyn Route Start Time Stop Time Status Last Admin (NS Flush) 2 ml BID IV FLUSH 11/24/17 09:00 11/25/17 21:33 (NS Flush) 2 ml UNSCH PRN IV FLUSH 11/23/17 22:15 (Aspirin Chew) 81 mg DAILY CHEW 11/24/17 09:00 11/25/17 09:46 (Zofran Inj) 4 mg Q6HR PRN IV PUSH 11/23/17 22:30 11/26/17 01:30 Milrinone Lactate 20 mg/Sodium Chloride 100 ml @ 8.55 mls/hr [id number] IV 11/24/17 10:00 11/26/17 03:08 (Lasix Inj) 40 mg BID@,18 IV PUSH 11/25/17 09:00 11/25/17 17:41 Albumin Human 100 ml @ 60 mls/hr BID@0830,1730 IV 11/25/17 08:30 11/25/17 17:41 (KCl Powder) 20 meq TID PO 11/25/17 18:00 11/25/17 18:00 Vital Signs / I&O Vital Signs Date Time Temp Pulse Resp B/P (MAP) Pulse Ox O2 Delivery O2 Flow Rate FiO2 11/26/17 04:00 96 Nasal Cannula 2.00 11/26/17 04:00 97.5 128 20 117/70 (86) 96 11/26/17 03:30 121 11/26/17 03:08 121 99/66 11/26/17 00:00 98.1 119 20 90/56 (67) 99 11/26/17 00:00 99 Nasal Cannula 2.00 11/25/17 23:30 127 11/25/17 21:00 98 Nasal Cannula 3.00 11/25/17 20:50 96 Nasal Cannula 3.00 11/25/17 20:00 94 Nasal Cannula 4.00 11/25/17 20:00 98.1 119 20 92/60 (71) 94 11/25/17 19:00 119 11/25/17 15:00 97.6 123 16 82/57 (65) 95 11/25/17 15:00 110 11/25/17 14:50 108 97/68 11/25/17 11:00 98.1 114 18 82/57 (65) 95 11/25/17 11:00 110 11/25/17 10:29 97 Nasal Cannula 3.00 I/O 11/25/17 11/25/17 11/25/17 11/26/17 11/26/17 11/26/17 07:00 15:00 23:00 07:00 15:00 23:00 Intake Total 940 ml 100 ml 942 ml 396 ml Output Total 475 ml 675 ml 625 ml Balance 465 ml 100 ml 267 ml -229 ml Intake Oral 720 ml 730 ml 300 ml IV Total 220 ml 100 ml 212 ml 96 ml Output Urine Total 475 ml 675 ml 625 ml # Bowel Movements 0 0 1 Physical Exam Lungs essentially clear +1 pedal edema weight down 3 lbs. Laboratory Laboratory Tests Test 11/25/17 09:35 11/25/17 18:05 11/26/17 04:25 Blood Urea Nitrogen 27 MG/DL 23 MG/DL Creatinine 1.19 MG/DL 0.98 MG/DL Random Glucose 92 MG/DL 100 MG/DL Calcium Level 8.2 MG/DL 8.0 MG/DL Magnesium Level 1.6 MG/DL Sodium Level 137 MEQ/L 140 MEQ/L Potassium Level 2.7 MEQ/L 4.4 MEQ/L 3.5 MEQ/L Chloride Level 100 MEQ/L 107 MEQ/L Carbon Dioxide Level 23.2 MEQ/L 20.5 MEQ/L Anion Gap 14 MEQ/L 13 MEQ/L Estimat Glomerular Filtration Rate 45 ML/MIN 56 ML/MIN Assessment and Plan Assessment and Plan Increase activity. Will probably stop milrinone today. Recheck Chest X-ray Mauricio Luna MD Nov 26, 2017 07:48
--- NOTE | 2017-11-26 08:27 | RADRPT ---
EXAM DATE/TIME: 11/26/2017 07:54 [place] COMPARISON: CT ABDOMEN & PELVIS W CONTRAST, November 23, 2017, 21:30. CHEST SINGLE AP, November 23, 2017, 19:39. INDICATIONS : Shortness of breath- Congestive heart failure. MEDICAL HISTORY : Hypertension. Hernia, hiatal. Gastroesophageal reflux disease.IBS. SURGICAL HISTORY : Cholecystectomy. Bilateral hip replacements. ENCOUNTER: Subsequent ACUITY: 1 day PAIN SCORE: 0/10 LOCATION: Bilateral chest FINDINGS: Portable AP view of the chest demonstrate stable enlargement of the cardiac silhouette with calcifica tion of the aorta. There are persistent pleural-parenchymal opacities at the lung bases bilaterally, right larger than left. The right basilar opacity appears slightly increased. No pneumothorax is iden tified. Bones and soft tissues demonstrate no acute finding. CONCLUSION: 1. Persistent bilateral effusions with associated airspace consolidation or atelectasis. Right pleura l effusion is larger than left and is slightly larger when compared to the study from 3 days ago. 2. Stable enlargement of the cardiac silhouette. Vazquez Andino MD on November 26, 2017 at 8:18 Board Certified Radiologist. This report was verified electronically.
[2017-11-26] MEDS: ALBUMIN 25% INJ 100 ML IV SCH ×2 (08:56→17:30)
[2017-11-26] MEDS: FUROSEMIDE 40 MG/4 ML VIAL IV PUSH SCH ×2 (08:57→17:30)
[2017-11-26] MEDS: POTASSIUM CHLORIDE 20 MEQ PWD PACKET PO SCH ×3 (08:57→17:30)
[2017-11-26] MEDS: ASPIRIN 81 MG CHEW TAB CHEW SCH (08:58)
[2017-11-26] MEDS: SODIUM CHLORIDE 0.9% FLUSH 10 ML FLUSH IV FLUSH SCH ×2 (08:58→20:21)
--- NOTE | 2017-11-26 09:21 | HHI.PR ---
Subjective Remarks leg edema improved. ok to try stockings for pedal edema Objective Vitals heart reg lung diminished bases abd s/nt ext persistent pedal edema but leg edema much improved Vital Signs Date Time Temp Pulse Resp B/P (MAP) Pulse Ox O2 Delivery O2 Flow Rate FiO2 11/26/17 04:00 96 Nasal Cannula 2.00 11/26/17 04:00 97.5 128 20 117/70 (86) 96 11/26/17 03:30 121 11/26/17 03:08 121 99/66 11/26/17 00:00 98.1 119 20 90/56 (67) 99 11/26/17 00:00 99 Nasal Cannula 2.00 11/25/17 23:30 127 11/25/17 21:00 98 Nasal Cannula 3.00 11/25/17 20:50 96 Nasal Cannula 3.00 11/25/17 20:00 94 Nasal Cannula 4.00 11/25/17 20:00 98.1 119 20 92/60 (71) 94 11/25/17 19:00 119 11/25/17 15:00 97.6 123 16 82/57 (65) 95 11/25/17 15:00 110 11/25/17 14:50 108 97/68 11/25/17 11:00 98.1 114 18 82/57 (65) 95 11/25/17 11:00 110 11/25/17 10:29 97 Nasal Cannula 3.00 Result Diagram: 11/23/17 1930 11/26/17 0425 Imaging Last 72 hours Impressions Chest X-Ray 11/23/17 1908 Signed Impressions: Service Date/Time: Thursday, November 23, 2017 19:39 - CONCLUSION: Right greater than left pleural effusions and basilar consolidation. Vazquez Perdue MD A/P Problem List: (1) CHF exacerbation ICD Codes: I50.9 - Heart failure, unspecified Status: Acute Plan: 1. acute systolic chf exacerbation. ef 20percent 2. hypotension 3. renal insufficiency seen by cardiology moved to cardiac icu milrinone/iv lasix/iv albumen monitor urine output and bmp bp to low for russell/bb dvt prophylaxis PT eval leg stockings .elevate legs. (2) Hypotension ICD Codes: I95.9 - Hypotension, unspecified Status: Acute Plan: see above Problem Qualifiers (1) CHF exacerbation: Qualified Codes: I50.9 - Heart failure, unspecified (2) Hypotension: Qualified Codes: I95.9 - Hypotension, unspecified Benny Patel MD Nov 26, 2017 09:21
[2017-11-27] VITALS (10 sets, daily range): BP systolic 90–122; BP diastolic 58–75; PULSE 122–141; RESP 14–27; TEMP 98–98.9; O2SAT 90–98
[2017-11-27 05:12] LABS: BICARBONATE 25.1 MEQ/L (21.0-32.0); CALCIUM 7.9 MG/DL (8.5-10.1); CREATININE 0.99 MG/DL (0.50-1.00); MAGNESIUM 1.2 MG/DL (1.5-2.5)
[2017-11-27] MEDS: MILRINONE INJ 20 MG in SODIUM CHLORIDE 0.9% INJ 80 ML IV SCH ×3 (08:12→18:00)
[2017-11-27] MEDS: ALBUMIN 25% INJ 100 ML IV SCH ×2 (08:30→16:52)
[2017-11-27] MEDS: ASPIRIN 81 MG CHEW TAB CHEW SCH (08:56)
[2017-11-27] MEDS: SODIUM CHLORIDE 0.9% FLUSH 10 ML FLUSH IV FLUSH SCH ×2 (08:56→20:41)
[2017-11-27] MEDS: FUROSEMIDE 40 MG/4 ML VIAL IV PUSH SCH ×2 (08:56→16:53)
[2017-11-27] MEDS: POTASSIUM CHLORIDE 20 MEQ PWD PACKET PO SCH ×3 (08:57→18:00)
--- NOTE | 2017-11-27 09:05 | PD.CARD.PN ---
Subjective Subjective Remarks feels SOB with positional changes, no chest pain. leg edema improving. HR 120- 130 overnight. (Ana Tijerina) Objective Medications Current Medications Medications (Trade) Dose Ordered Sig/Gwendolyn Route Start Time Stop Time Status Last Admin (NS Flush) 2 ml BID IV FLUSH 11/24/17 09:00 11/27/17 08:56 (NS Flush) 2 ml UNSCH PRN IV FLUSH 11/23/17 22:15 (Aspirin Chew) 81 mg DAILY CHEW 11/24/17 09:00 11/27/17 08:56 (Zofran Inj) 4 mg Q6HR PRN IV PUSH 11/23/17 22:30 11/26/17 01:30 Milrinone Lactate 20 mg/Sodium Chloride 100 ml @ 8.55 mls/hr [id number] IV 11/24/17 10:00 11/26/17 20:30 (Lasix Inj) 40 mg BID@,18 IV PUSH 11/25/17 09:00 11/27/17 08:56 Albumin Human 100 ml @ 60 mls/hr BID@0830,1730 IV 11/25/17 08:30 11/27/17 08:30 (KCl Powder) 20 meq TID PO 11/25/17 18:00 11/27/17 08:57 Vital Signs / I&O Vital Signs Date Time Temp Pulse Resp B/P (MAP) Pulse Ox O2 Delivery O2 Flow Rate FiO2 11/27/17 07:53 90 Room Air 11/27/17 07:52 125 11/27/17 07:46 98.9 125 17 122/64 (83) 90 11/27/17 03:00 98.1 123 14 90/58 (69) 98 11/27/17 03:00 98 Nasal Cannula 2.00 11/27/17 03:00 123 11/26/17 23:00 135 11/26/17 23:00 97.8 135 14 88/60 (69) 94 11/26/17 23:00 94 Room Air 11/26/17 20:30 122 97/66 11/26/17 19:26 96 Nasal Cannula 2.00 11/26/17 19:00 95 Room Air 11/26/17 19:00 98.3 140 14 91/56 (68) 95 11/26/17 19:00 140 11/26/17 15:00 94 Room Air 11/26/17 15:00 98.1 99 16 93/67 (76) 94 11/26/17 15:00 99 11/26/17 13:56 114 90/54 11/26/17 12:00 96 Nasal Cannula 2.00 11/26/17 12:00 108 11/26/17 12:00 98.0 108 16 93/67 (76) 96 11/26/17 10:51 98 Nasal Cannula 2.00 I/O 11/26/17 11/26/17 11/26/17 11/27/17 11/27/17 11/27/17 06:59 14:59 22:59 06:59 14:59 22:59 Intake Total 396 ml 220 ml 333.5 ml Output Total 625 ml 200 ml Balance -229 ml 220 ml 133.5 ml Intake Oral 300 ml 220 ml 240 ml IV Total 96 ml 93.5 ml Output Urine Total 625 ml 200 ml # Voids 4 1 # Bowel Movements 1 3 2 Physical Exam GENERAL: SKIN: Warm and dry. HEAD: Atraumatic. Normocephalic. EYES: Pupils equal and round. No scleral icterus. ENT: No nasal bleeding or discharge. NECK: Trachea midline. No JVD. CARDIOVASCULAR: tachycardic, regular rhythm. RESPIRATORY: No accessory muscle use. Clear to auscultation. decreased breath sounds bilateral bases GASTROINTESTINAL: Abdomen soft, non-tender, nondistended. MUSCULOSKELETAL: Extremities without clubbing, cyanosis. bilateral 1-2+ LE edema NEUROLOGICAL: Awake and alert. No obvious cranial nerve deficits. Normal speech. PSYCHIATRIC: Appropriate mood and affect; insight and judgment normal. Laboratory Laboratory Tests Test 11/27/17 04:10 Blood Urea Nitrogen 25 MG/DL Creatinine 0.99 MG/DL Random Glucose 116 MG/DL Calcium Level 7.9 MG/DL Magnesium Level 1.2 MG/DL Sodium Level 140 MEQ/L Potassium Level 3.7 MEQ/L Chloride Level 104 MEQ/L Carbon Dioxide Level 25.1 MEQ/L Anion Gap 11 MEQ/L Estimat Glomerular Filtration Rate 55 ML/MIN Imaging Last 48 hours Impressions Chest X-Ray 11/26/17 0000 Signed Impressions: Service Date/Time: Sunday, November 26, 2017 07:54 - CONCLUSION: 1. Persistent bilateral effusions with associated airspace consolidation or atelectasis. Right pleural effusion is larger than left and is slightly larger when compared to the study from 3 days ago. 2. Stable enlargement of the cardiac silhouette. Vazquez Andino MD (Ana Tijerina) Assessment and Plan Problem List: (1) CHF exacerbation ICD Codes: I50.9 - Heart failure, unspecified Status: Acute Assessment and Plan 72 yo WF with non-ischemic cardiomyopathy admitted for weakness and CHF CHF- NICM, leg edema improving. CXR shows increasing bilateral effusions. SOB with positional changes, HR 120-130. remains on milrinone and IV lasix Mg low (Ana Tijerina) Assessment and Plan wean milrinone gtt today edema much improved sinus tachycardia HR 120-140 continue IV lasix watch BP. hopefully, add entresto if BP tolerates tomorrow? (Armani Barbour MD) Problem Qualifiers (1) CHF exacerbation: Qualified Codes: I50.9 - Heart failure, unspecified Ana Tijerina Nov 27, 2017 09:05 Armani Barbour MD Nov 27, 2017 12:40
[2017-11-27] MEDS: MAGNESIUM SULFATE 1 GM PREMIX 100 ML IV SCH ×2 (11:00→12:00)
--- NOTE | 2017-11-27 11:38 | HHI.PR ---
Subjective Remarks No new complaints. SOB and LE edema are improved from admission. Objective Vitals Vital Signs Date Time Temp Pulse Resp B/P (MAP) Pulse Ox O2 Delivery O2 Flow Rate FiO2 11/27/17 11:24 95 Room Air 11/27/17 11:23 122 11/27/17 11:22 98.9 122 19 122/65 (84) 95 11/27/17 07:53 90 Room Air 11/27/17 07:52 125 11/27/17 07:46 98.9 125 17 122/64 (83) 90 11/27/17 03:00 98.1 123 14 90/58 (69) 98 11/27/17 03:00 98 Nasal Cannula 2.00 11/27/17 03:00 123 11/26/17 23:00 135 11/26/17 23:00 97.8 135 14 88/60 (69) 94 11/26/17 23:00 94 Room Air 11/26/17 20:30 122 97/66 11/26/17 19:26 96 Nasal Cannula 2.00 11/26/17 19:00 95 Room Air 11/26/17 19:00 98.3 140 14 91/56 (68) 95 11/26/17 19:00 140 11/26/17 15:00 94 Room Air 11/26/17 15:00 98.1 99 16 93/67 (76) 94 11/26/17 15:00 99 11/26/17 13:56 114 90/54 11/26/17 12:00 96 Nasal Cannula 2.00 11/26/17 12:00 108 11/26/17 12:00 98.0 108 16 93/67 (76) 96 Result Diagram: 11/23/17 1930 11/27/17 0410 Imaging Last Impressions Chest X-Ray 11/26/17 0000 Signed Impressions: Service Date/Time: Sunday, November 26, 2017 07:54 - CONCLUSION: 1. Persistent bilateral effusions with associated airspace consolidation or atelectasis. Right pleural effusion is larger than left and is slightly larger when compared to the study from 3 days ago. 2. Stable enlargement of the cardiac silhouette. Vazquez Andino MD Abdomen/Pelvis CT 11/23/17 0000 Signed Impressions: Service Date/Time: [place], November 23, 2017 21:30 - CONCLUSION: 1. No obstruction or acute inflammatory changes are seen in the abdomen or pelvis. 2. Apparent complex cystic and solid mass of the mid zone of the right kidney. A followup MRI of the abdomen is recommended with and without contrast in approximately 3 months. This may be helpful in further characterizing a small, probably benign but nonspecific hypodensity of the liver. 3. Nonspecific right greater than left pleural effusions and basilar atelectasis. There is an area of nonenhancing right lower lobe pulmonary parenchyma compatible with pneumonia. Infection and post obstructive process would be in the differential. After treatment for presumed pneumonia, a followup CT of the chest, preferably with intravenous contrast, is recommended within the next couple of months, sooner if felt clinically indicated. 4. Also a nonspecific moderate size pericardial effusion. Vazquez Perdue MD Objective Remarks GENERAL: This is a well-nourished, well-developed patient, in no apparent distress. CARDIOVASCULAR: Regular rate and rhythm without murmurs, gallops, or rubs. RESPIRATORY: Clear to auscultation. Breath sounds equal bilaterally. No wheezes , rales, or rhonchi. GASTROINTESTINAL: Abdomen soft, non-tender, nondistended. Normal active bowel sounds MUSCULOSKELETAL: Extremities without clubbing, cyanosis, or edema. NEURO: Alert & Oriented x4 to person, place, time, situation. Moves all ext x4 A/P Problem List: (1) CHF exacerbation ICD Codes: I50.9 - Heart failure, unspecified Status: Acute Plan: - comgmt with Cardiology - Pt admitted with acute systolic CHF exacerbation, EF 20% - hypotension improved today - IV milrinone, IV lasix, IV albumen - observe I&O's - 200ml urine output 7AM - noon (11/27) - observe weight - telemetry: sinus tachycardia - DVT prophylaxis - PT - leg stockings - elevate legs - will d/w Cardiology - consider Palliative Consult 11/29 (2) Hypotension ICD Codes: I95.9 - Hypotension, unspecified Status: Acute Plan: - see above (3) Hypomagnesemia ICD Codes: E83.42 - Hypomagnesemia Status: Acute Plan: - replete magnesium - repeat labs in AM Problem Qualifiers (1) CHF exacerbation: Qualified Codes: I50.9 - Heart failure, unspecified (2) Hypotension: Qualified Codes: I95.9 - Hypotension, unspecified Andres Gagnon DO Nov 27, 2017 11:37
[2017-11-27] MEDS: ONDANSETRON HCL 4 MG/2 ML VIAL IV PUSH PRN (16:13)
[2017-11-27] MEDS ORDERED: LORazepam 2 MG/ML VIAL ONE (17:00)
[2017-11-27] MEDS ORDERED: LORazepam 2 MG/ML VIAL IV PRN (17:15)
[2017-11-27] MEDS ORDERED: SODIUM BICARBONATE 8.4% INJ 50 MEQ/50 ML SYR ONE (18:33)
[2017-11-27] MEDS ORDERED: SODIUM BICARBONATE 8.4% SOLN 50 MEQ/50 ML VIAL IV PUSH ONE (19:00)
--- NOTE | 2017-11-27 19:59 | PD.CONS ---
[facility] Service Critical Care Medicine Consult Requested By Dr. Barbour Reason for Consult Metabolic acidosis Primary Care Physician Shaka Rose M.D. History of Present Illness History of Present Illness 72-year-old female with a medical history significant for CHF, cardiomyopathy who was admitted initially at [facility] from November 08 And subsequently discharged. She has been very weak since her discharge and has had diarrhea for several months. She has also had nausea and poor appetite as well as long-standing shortness of breath. She presented back on November 23, 2017 to [facility] with generalized weakness as well as some shortness of breath. She had significant edema in her lower extremities. She was reportedly admitted with a sepsis at [facility] in October 2017 and CHF. Her LVEF is noted to be 20%. During previous hospitalization she was treated with IV antibiotics and pressors. She was also treated with antibiotics at that time. Patient was admitted by [facility] on November 23 and was evaluated by cardiology. She was initiated on diuretics, IV albumin as well as milrinone gtt. Initially she received Rocephin and Flagyl which was subsequently stopped. Milrinone gtt. was titrated off at 12 noon on 11/27. Patient developed worsening shortness of breath and some altered mental status and abdominal pain subsequently. She remained on 2 L nasal cannula however was slightly tachypneic. ABG was done for further evaluation around 6 PM which revealed severe metabolic acidosis with pH 7.16, PCO2 18, PO2 98 and bicarbonate 6. Critical care was consulted on 11/27 around 6:[address] Barbour was contacted by DENTAL INSURANCE COORDINATOR N ordered 5 amps of sodium bicarbonate IV push. Patient's milrinone was resumed at 0.5 mics per KG per minute. I evaluated the patient after being notified of the consult and ordered stat labs and chest x-ray. When I evaluated the patient she was encephalopathic/lethargic with tachypnea. She had just received 5 A of sodium bicarbonate IV push. Stat labs are pending. ROS - General Review of Systems Unable to be obtained due to altered mental status/disorientation PFSH Past Family Social History Past Medical History Cardiomyopathy with an EF around 20% based on echo done in October 2017 Chronic bronchitis Colitis with chronic diarrhea of unknown etiology Fatty liver GERD Hypertension Hyperlipidemia Hyperthyroidism Hypomagnesemia Peripheral neuropathy Polycythemia vera [place] history of sepsis with prior infection with MRSA and strep a B12 and vitamin D deficiency Past Surgical History Cataract surgery Cholecystectomy Total hip replacement on the right Ureterostomy Ventral hernia repair in 1995 Reported Medications Zyrtec Allergy (Cetirizine HCl) 10 Mg Cap 2.5 Mg PO DAILY Tramadol (Tramadol HCl) 50 Mg Tab 50 Mg PO Q8H PRN Vitamin D-3 (Cholecalciferol) 1,000 Unit Tab 1,000 Units PO DAILY Chlorthalidone 25 Mg Tab 25 Mg PO DAILY Nifedipine ER 24 HR (Nifedipine) 30 Mg Tab 30 Mg PO DAILY Pantoprazole (Pantoprazole Sodium) 40 Mg Tab 40 Mg PO DAILY K-Tab (Potassium Chloride) 10 Meq Tab 10 Meq PO DAILY Mobic (Meloxicam) 15 Mg Tab 15 Mg PO VERÓNICA Allergies: Coded Allergies: codeine (Unverified Allergy, Severe, ITCH, 06/29/17) penicillin G (Unverified Allergy, Severe, RASH, 06/29/17) vancomycin (Unverified Allergy, Severe, HIVES, EDEMA/SWELLING, 06/29/17) Uncoded Allergies: ANGIOTENSIN RECEPTOR MARIA VICTORIA (Adverse Reaction, Severe, Cough, 11/19/16) Administered Medications Medications (Trade) Dose Ordered Sig/Gwendolyn Route PRN Reason Start Time Stop Time Status Last Admin Dose Admin Sodium Chloride (NS Flush) 2 ml BID IV FLUSH 11/24/17 09:00 11/27/17 08:56 Aspirin (Aspirin Chew) 81 mg DAILY CHEW 11/24/17 09:00 11/27/17 08:56 Ondansetron HCl (Zofran Inj) 4 mg Q6HR PRN IV PUSH n,v 11/23/17 22:30 11/27/17 16:13 Furosemide (Lasix Inj) 40 mg BID@ IV PUSH 11/25/17 09:00 11/27/17 16:53 Albumin Human 100 ml @ 60 mls/hr BID@0830,1730 IV 11/25/17 08:30 11/27/17 16:52 Potassium Chloride (KCl Powder) 20 meq TID PO 11/25/17 18:00 11/27/17 18:00 Milrinone Lactate 20 mg/Sodium Chloride 100 ml @ 8.62 mls/hr [id number] IV 11/27/17 18:00 11/27/17 18:00 Family History Noncontributory Social History No tobacco ever Did previously drink alcohol 2-3 times per week but hasn't drank anything the last week or so Lives alone but her son lives close by just down the [address] Originally from [place], moved here in 1974 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 Physical Exam Vital Signs Vital Signs Date Time Temp Pulse Resp B/P (MAP) Pulse Ox O2 Delivery O2 Flow Rate FiO2 11/27/17 19:27 94 Nasal Cannula 2.00 11/27/17 18:00 130 110/77 11/27/17 17:11 140 82/30 11/27/17 15:13 95 Room Air 11/27/17 15:12 131 11/27/17 15:11 98.0 131 19 120/66 (84) 95 11/27/17 11:24 95 Room Air 11/27/17 11:23 122 11/27/17 11:22 98.9 122 19 122/65 (84) 95 11/27/17 07:55 93 21 11/27/17 07:53 90 Room Air 11/27/17 07:52 125 11/27/17 07:46 98.9 125 17 122/64 (83) 90 11/27/17 03:00 98.1 123 14 90/58 (69) 98 11/27/17 03:00 98 Nasal Cannula 2.00 11/27/17 03:00 123 11/26/17 23:00 135 11/26/17 23:00 97.8 135 14 88/60 (69) 94 11/26/17 23:00 94 Room Air 11/26/17 20:30 122 97/66 Physical Exam HEENT/Neuro: No pallor or icterus, tongue moist, REESE, drowsy, arousable, disoriented, not following commands nonfocal grossly, moving all 4 extremities Neck: No JVD Chest/pulmonary: Air entry decreased bilaterally at bases, scattered rhonchi, no wheezing Cardiovascular: Tachycardic with heart rate 140s, S1-S2 regular no gallop or murmur GI/abdomen: Soft, nontender, bowel sounds not appreciated Extremities: Warm bilaterally, bilateral edema Laboratory Laboratory Tests Test 11/27/17 04:10 11/27/17 18:00 Blood Urea Nitrogen 25 Creatinine 0.99 Random Glucose 116 Calcium Level 7.9 Magnesium Level 1.2 Sodium Level 140 Potassium Level 3.7 Chloride Level 104 Carbon Dioxide Level 25.1 Anion Gap 11 Estimat Glomerular Filtration Rate 55 Blood Gas Puncture Site LT RADIAL Blood Gas Patient Temperature 98.6 Blood Gas HCO3 6 Blood Gas Base Excess -20.8 Blood Gas Oxygen Saturation 92 Arterial Blood pH 7.16 Arterial Blood Partial Pressure CO2 18 Arterial Blood Partial Pressure O2 98 Arterial Blood Oxygen Content 16.0 Arterial Blood Carboxyhemoglobin 0.5 Arterial Blood Methemoglobin 1.2 Blood Gas Hemoglobin 12.2 Oxygen Delivery Device NASAL CANNULA Blood Gas Liter Flow 2 Date/Time Source Procedure Growth Status 11/23/17 20:26 Blood Peripheral Aerobic Blood Culture - Preliminary NO GROWTH IN 4 DAYS Resulted 11/23/17 20:26 Blood Peripheral Anaerobic Blood Culture - Preliminary NO GROWTH IN 4 DAYS Resulted Result Diagram: 11/23/17 1930 11/27/17 0410 Assessment and Plan Assessment and Plan 72-year-old female with: Altered mental status/delirium Decompensated CHF Nonischemic cardiomyopathy with LVEF 20% Metabolic acidosis: Suspect low flow state causing lactic acidosis with possible bowel ischemia Diarrhea Abdominal pain Recent lactic acidosis Tachycardia Bilateral pleural effusions Plan: Neuro: Follow neuro status. Received Xanax earlier. Avoid benzodiazepines, narcotics. Cardiovascular: Continue milrinone gtt. on diuretics. May require IV fluids for hypotension if recurs. Pulmonary: Follow-up chest x-ray, continue supplemental O2. Suspect tachypnea secondary to metabolic acidosis. GI/liver: Follow-up LFTs. Check stool for C. difficile in view of recent antibiotic use and diarrhea. Diarrhea may possibly also be from bowel ischemia. Follow-up lactic acid. Nothing by mouth overnight and advance by mouth in a.m. if improved. On PPI at home, will initiate IV Protonix. Renal/: May be intravascularly depleted. Continue bicarbonate drip at 50 cc an hour. Received 5 amps of bicarbonate prior to critical care evaluation. On Lasix twice a day. Review chest x-ray to decide holding diuretics. Follow-up repeat labs to decide further intervention ID: Check stool for C. difficile. Await CBC. Hold off on antibiotics at this time. Endocrine: Watch for hyperglycemia, SSI for glycemic control if needed Heme: Follow CBC Prophylaxis: Protonix IV, SCDs, start subcutaneous Lovenox. Condition critical with severe metabolic acidosis. Discussed with Dr. Gagnon , discussed with DENTAL INSURANCE COORDINATOR. Awaiting labs and chest x-ray to decide further management. Time spent on critical care excluding procedures 60 minutes Kike Celeste MD 13, 2018 19:59
[2017-11-27] MEDS ORDERED: ENOXAPARIN SODIUM 40 MG/0.4 ML SYRINGE SQ SCH (20:00)
--- NOTE | 2017-11-27 20:08 | RADRPT ---
EXAM DATE/TIME: 11/27/2017 19:41 [facility] COMPARISON: No previous studies available for comparison. INDICATIONS : Follow up CHF. MEDICAL HISTORY : Hypertension. Hernia, hiatal. Gastroesophageal reflux disease.IBS. SURGICAL HISTORY : Cholecystectomy. Bilateral hip replacements. ENCOUNTER: Subsequent ACUITY: 4 - 6 days PAIN SCORE: Non-responsive. LOCATION: Bilateral chest FINDINGS: Small left and moderate right pleural effusions are again noted with bibasilar consolidation. The rig ht pleural effusion appears slightly larger in the interim and now with some loculation near the apex . No pneumothorax. Heart size stable, mildly enlarged. CONCLUSION: Right greater left pleural effusions are slightly worse in the interim. Mild cardiomegaly unchanged. Vazquez Perdue MD on November 27, 2017 at 20:04 Board Certified Radiologist. This report was verified electronically.
[2017-11-27] MEDS: PANTOPRAZOLE SODIUM 40 MG VIAL IV PUSH SCH (20:40)
[2017-11-27 20:47] LABS: AUTOMATED NEUTROPHIL # 8.5 TH/MM3 (1.8-7.7); BASOPHIL % 0.2 % (0.0-2.0); HEMATOCRIT 37.8 % (35.0-46.0); HEMOGLOBIN 12.3 GM/DL (11.6-15.3); LYMPH % 9.4 % (9.0-44.0); LYMPHOCYTE # 0.9 TH/MM3 (1.0-4.8); MEAN CELL VOLUME 91.8 FL (80.0-100.0); MEAN CORPUSCULAR HEMOGLOBIN 29.9 PG (27.0-34.0); MEAN CORPUSCULAR HGB CONC 32.6 % (32.0-36.0); MEAN PLATELET VOLUME 9.7 FL (7.0-11.0); MONO % 6.8 % (0.0-8.0); MONOCYTE # 0.7 TH/MM3 (0-0.9); NEUT % 83.6 % (16.0-70.0); PLATELET COUNT 84 TH/MM3 (150-450); RED BLOOD COUNT 4.11 MIL/MM3 (4.00-5.30); WHITE BLOOD COUNT 10.1 TH/MM3 (4.0-11.0)
[2017-11-27 20:51] LABS: ALBUMIN 4.7 GM/DL (3.4-5.0); ALT (GPT) 25 U/L (10-53); AST (GOT) 130 U/L (15-37); BLOOD UREA NITROGEN 28 MG/DL (7-18); CALCIUM 8.8 MG/DL (8.5-10.1); CHLORIDE 101 MEQ/L (98-107); CREATININE 1.61 MG/DL (0.50-1.00); GLOMERULAR FILTRATION RATE 32 ML/MIN (>89); GLUCOSE,RANDOM 76 MG/DL (74-106); MAGNESIUM 2.2 MG/DL (1.5-2.5); PHOSPHORUS 2.5 MG/DL (2.5-4.9); SODIUM (NA) 140 MEQ/L (136-145)
[2017-11-27] MEDS ORDERED: SODIUM BICARBONATE 8.4% INJ 150 MEQ in WATER STERILE FOR INJ 850 ML IV SCH (21:00)
[2017-11-27 21:01] LABS: ALKALINE PHOSPHATASE 90 U/L (45-117); TOTAL BILIRUBIN ADULT 3.3 MG/DL (0.2-1.0); TOTAL PROTEIN 7.5 GM/DL (6.4-8.2)
[2017-11-27 21:04] LABS: INTERNATIONAL NORMALIZED RATIO 1.9 RATIO; PROTHROMBIN TIME - PATIENT 19.5 SEC (9.8-11.6)
[2017-11-28] VITALS (8 sets, daily range): BP systolic 81–94; BP diastolic 47–57; PULSE 116–139; RESP 12–22; TEMP 97–98.6; O2SAT 93–98
[2017-11-28] MEDS ORDERED: SODIUM BICARBONATE 8.4% INJ 150 MEQ in WATER STERILE FOR INJ 850 ML IV ONE ×2
[2017-11-28] MEDS ORDERED: SODIUM BICARBONATE 8.4% INJ 150 MEQ in WATER STERILE FOR INJ 850 ML IV SCH (01:01)
[2017-11-28 04:12] LABS: BASOPHIL % 0.2 % (0.0-2.0); HEMATOCRIT 29.5 % (35.0-46.0); HEMOGLOBIN 9.9 GM/DL (11.6-15.3); LYMPH % 11.5 % (9.0-44.0); MEAN CELL VOLUME 89.4 FL (80.0-100.0); MEAN CORPUSCULAR HGB CONC 33.5 % (32.0-36.0); MEAN PLATELET VOLUME 9.5 FL (7.0-11.0); MONO % 6.3 % (0.0-8.0); MONOCYTE # 0.5 TH/MM3 (0-0.9); PLATELET COUNT 67 TH/MM3 (150-450); RED CELL DISTRIBUTION WIDTH 17.7 % (11.6-17.2); WHITE BLOOD COUNT 8.5 TH/MM3 (4.0-11.0)
[2017-11-28 04:47] LABS: ALBUMIN 3.9 GM/DL (3.4-5.0); ALKALINE PHOSPHATASE 65 U/L (45-117); ALT (GPT) 35 U/L (10-53); AST (GOT) 171 U/L (15-37); BICARBONATE 22.7 MEQ/L (21.0-32.0); BLOOD UREA NITROGEN 29 MG/DL (7-18); CALCIUM 8.1 MG/DL (8.5-10.1); CHLORIDE 102 MEQ/L (98-107); CREATININE 1.76 MG/DL (0.50-1.00); GLOMERULAR FILTRATION RATE 28 ML/MIN (>89); GLUCOSE,RANDOM 112 MG/DL (74-106); MAGNESIUM 1.8 MG/DL (1.5-2.5); PHOSPHORUS 1.8 MG/DL (2.5-4.9); SODIUM (NA) 143 MEQ/L (136-145); TOTAL BILIRUBIN ADULT 1.7 MG/DL (0.2-1.0); TOTAL PROTEIN 6.1 GM/DL (6.4-8.2)
[2017-11-28 04:58] LABS: TARGET CELLS 1+ (NORMAL)
[2017-11-28] MEDS: MILRINONE INJ 20 MG in SODIUM CHLORIDE 0.9% INJ 80 ML IV SCH ×2 (05:37→17:11)
--- NOTE | 2017-11-28 08:53 | RADRPT ---
EXAM DATE/TIME: 11/28/2017 07:29 [facility] COMPARISON: CHEST SINGLE AP, November 27, 2017, 19:41. INDICATIONS : Shortness of breath. MEDICAL HISTORY : Congestive heart failure. Hypertension. Hernia, hiatal. Gastroesophageal reflux disease.IBS. SURGICAL HISTORY : Cholecystectomy. Bilateral hip replacements. ENCOUNTER: Subsequent ACUITY: 4 - 6 days PAIN SCORE: 0/10 LOCATION: Bilateral chest FINDINGS: Single AP view of the chest. Bilateral pleural effusions right greater than left unchanged. Medial ri ght lower lobe consolidation versus atelectasis also unchanged. Skin folds noted on the right. No ceferino dence of pneumothorax. Cardiomediastinal silhouette unchanged. CONCLUSION: No significant interval change with persistent right greater than left pleural effusions and medial r ight lung base atelectasis versus consolidation. Lazaro Ames MD on November 28, 2017 at 8:47 Board Certified Radiologist. This report was verified electronically.
[2017-11-28] MEDS: POTASSIUM CHLORIDE 20 MEQ PWD PACKET PO SCH ×3 (09:00→17:02)
[2017-11-28] MEDS ORDERED: VECURONIUM BROMIDE 10 MG VIAL IV ONE (09:00)
[2017-11-28] MEDS: ASPIRIN 81 MG CHEW TAB CHEW SCH (09:00)
[2017-11-28] MEDS: ALBUMIN 25% INJ 100 ML IV SCH (09:05)
[2017-11-28] MEDS: SODIUM CHLORIDE 0.9% FLUSH 10 ML FLUSH IV FLUSH SCH ×2 (09:07→20:27)
--- NOTE | 2017-11-28 09:27 | PD.CARD.PN ---
Subjective Subjective Remarks decompensated last night. metabolic acidosis, milrinone resumed with improved minimally improved SBP (Ana Tijerina) Objective Medications Current Medications Medications (Trade) Dose Ordered Sig/Gwendolyn Route Start Time Stop Time Status Last Admin (NS Flush) 2 ml BID IV FLUSH 11/24/17 09:00 11/28/17 09:07 (NS Flush) 2 ml UNSCH PRN IV FLUSH 11/23/17 22:15 (Aspirin Chew) 81 mg DAILY CHEW 11/24/17 09:00 11/27/17 08:56 (Zofran Inj) 4 mg Q6HR PRN IV PUSH 11/23/17 22:30 11/27/17 16:13 (Lasix Inj) 40 mg BID@18 IV PUSH 11/25/17 09:00 11/27/17 16:53 Albumin Human 100 ml @ 60 mls/hr BID@0830,1730 IV 11/25/17 08:30 11/28/17 09:05 (KCl Powder) 20 meq TID PO 11/25/17 18:00 11/27/17 18:00 Milrinone Lactate 20 mg/Sodium Chloride 100 ml @ 8.62 mls/hr [id number] IV 11/27/17 18:00 11/28/17 05:37 (Protonix Inj) 40 mg Q24H IV PUSH 11/27/17 20:00 11/27/17 20:40 (Lovenox Inj) 40 mg Q24H SQ 11/27/17 20:00 11/27/17 20:41 Sodium Bicarbonate 150 meq/Sterile Water 1,000 ml @ 50 mls/hr Q20H IV 11/28/17 01:01 11/28/17 01:01 Vital Signs / I&O Vital Signs Date Time Temp Pulse Resp B/P (MAP) Pulse Ox O2 Delivery O2 Flow Rate FiO2 11/28/17 07:00 139 11/28/17 07:00 98.4 139 22 88/52 (64) 94 11/28/17 07:00 94 Nasal Cannula 4.50 11/28/17 05:37 120 83/50 11/28/17 03:00 98.5 126 18 84/47 (59) 93 11/28/17 03:00 121 11/28/17 03:00 93 Nasal Cannula 2.00 11/28/17 00:00 97 Simple Mask 10.00 11/28/17 00:00 127 11/28/17 00:00 98.3 126 18 82/57 (65) 97 11/27/17 20:00 90 Nasal Cannula 3.00 11/27/17 20:00 98.0 138 27 117/75 (89) 90 11/27/17 20:00 141 11/27/17 19:27 94 Nasal Cannula 2.00 11/27/17 18:00 130 110/77 11/27/17 17:11 140 82/30 11/27/17 15:13 95 Room Air 11/27/17 15:12 131 11/27/17 15:11 98.0 131 19 120/66 (84) 95 11/27/17 11:24 95 Room Air 11/27/17 11:23 122 11/27/17 11:22 98.9 122 19 122/65 (84) 95 I/O 11/27/17 11/27/17 11/27/17 11/28/17 11/28/17 11/28/17 07:00 15:00 23:00 07:00 15:00 23:00 Intake Total 333.5 ml 280 ml 600 ml 1374 ml Output Total 200 ml 400 ml 23 ml Balance 133.5 ml 280 ml 200 ml 1351 ml Intake Oral 240 ml 500 ml 240 ml IV Total 93.5 ml 280 ml 100 ml 1134 ml Output Urine Total 200 ml 400 ml 23 ml # Voids 1 # Bowel Movements 2 4 1 Physical Exam GENERAL: SKIN: Warm and dry. HEAD: Atraumatic. Normocephalic. EYES: Pupils equal and round. No scleral icterus. ENT: No nasal bleeding or discharge. NECK: Trachea midline. No JVD. CARDIOVASCULAR: tachycardic, regular rhythm. RESPIRATORY: No accessory muscle use. Clear to auscultation. decreased breath sounds bilateral bases GASTROINTESTINAL: Abdomen soft, non-tender, nondistended. MUSCULOSKELETAL: Extremities without clubbing, cyanosis. bilateral 1-2+ LE edema NEUROLOGICAL: Awake and alert. No obvious cranial nerve deficits. Normal speech. PSYCHIATRIC: sedated, arousable Laboratory Laboratory Tests Test 11/27/17 18:00 11/27/17 19:53 11/27/17 20:18 11/27/17 20:30 Blood Gas Puncture Site LT RADIAL LT RADIAL Blood Gas Patient Temperature 98.6 98.6 Blood Gas HCO3 6 mmol/L 13 mmol/L Blood Gas Base Excess -20.8 mmol/L -11.2 mmol/L Blood Gas Oxygen Saturation 92 % 93 % Arterial Blood pH 7.16 7.40 Arterial Blood Partial Pressure CO2 18 mmHg 21 mmHg Arterial Blood Partial Pressure O2 98 mmHg 83 mmHg Arterial Blood Oxygen Content 16.0 Vol % 15.4 Vol % Arterial Blood Carboxyhemoglobin 0.5 % 1.1 % Arterial Blood Methemoglobin 1.2 % 1.0 % Blood Gas Hemoglobin 12.2 G/DL 11.7 G/DL Oxygen Delivery Device NASAL CANNULA SM Blood Gas Liter Flow 2 L/M 5 L/M Blood Urea Nitrogen 28 MG/DL Creatinine 1.61 MG/DL Random Glucose 76 MG/DL Total Protein 7.5 GM/DL Albumin 4.7 GM/DL Calcium Level 8.8 MG/DL Phosphorus Level 2.5 MG/DL Magnesium Level 2.2 MG/DL Alkaline Phosphatase 90 U/L Aspartate Amino Transf (AST/SGOT) 130 U/L Alanine Aminotransferase (ALT/SGPT) 25 U/L Total Bilirubin 3.3 MG/DL Sodium Level 140 MEQ/L Potassium Level 5.7 MEQ/L Chloride Level 101 MEQ/L Carbon Dioxide Level 12.0 MEQ/L Anion Gap 27 MEQ/L Estimat Glomerular Filtration Rate 32 ML/MIN White Blood Count 10.1 TH/MM3 Red Blood Count 4.11 MIL/MM3 Hemoglobin 12.3 GM/DL Hematocrit 37.8 % Mean Corpuscular Volume 91.8 FL Mean Corpuscular Hemoglobin 29.9 PG Mean Corpuscular Hemoglobin Concent 32.6 % Red Cell Distribution Width 18.0 % Platelet Count 84 TH/MM3 Mean Platelet Volume 9.7 FL Neutrophils (%) (Auto) 83.6 % Lymphocytes (%) (Auto) 9.4 % Monocytes (%) (Auto) 6.8 % Eosinophils (%) (Auto) 0.0 % Basophils (%) (Auto) 0.2 % Neutrophils # (Auto) 8.5 TH/MM3 Lymphocytes # (Auto) 0.9 TH/MM3 Monocytes # (Auto) 0.7 TH/MM3 Eosinophils # (Auto) 0.0 TH/MM3 Basophils # (Auto) 0.0 TH/MM3 CBC Comment AUTO DIFF Differential Comment AUTO DIFF CONFIRMED Prothrombin Time 19.5 SEC Prothromb Time International Ratio 1.9 RATIO Activated Partial Thromboplast Time 38.3 SEC Lactic Acid Level 17.6 mmol/L B-Type Natriuretic Peptide GREATER THAN 5000 PG/ML Test 11/28/17 02:45 11/28/17 03:55 11/28/17 04:29 Stool C. difficile Toxin (PCR) NEGATIVE Stl C. difficile Toxin Epiderm 027 PRESUMPTIVE NEGATIVE White Blood Count 8.5 TH/MM3 Red Blood Count 3.30 MIL/MM3 Hemoglobin 9.9 GM/DL Hematocrit 29.5 % Mean Corpuscular Volume 89.4 FL Mean Corpuscular Hemoglobin 30.0 PG Mean Corpuscular Hemoglobin Concent 33.5 % Red Cell Distribution Width 17.7 % Platelet Count 67 TH/MM3 Mean Platelet Volume 9.5 FL Neutrophils (%) (Auto) 82.0 % Lymphocytes (%) (Auto) 11.5 % Monocytes (%) (Auto) 6.3 % Eosinophils (%) (Auto) 0.0 % Basophils (%) (Auto) 0.2 % Neutrophils # (Auto) 7.0 TH/MM3 Lymphocytes # (Auto) 1.0 TH/MM3 Monocytes # (Auto) 0.5 TH/MM3 Eosinophils # (Auto) 0.0 TH/MM3 Basophils # (Auto) 0.0 TH/MM3 CBC Comment AUTO DIFF Differential Comment AUTO DIFF CONFIRMED Platelet Estimate LOW Platelet Morphology Comment NORMAL Target Cells 1+ Blood Urea Nitrogen 29 MG/DL Creatinine 1.76 MG/DL Random Glucose 112 MG/DL Total Protein 6.1 GM/DL Albumin 3.9 GM/DL Calcium Level 8.1 MG/DL Phosphorus Level 1.8 MG/DL Magnesium Level 1.8 MG/DL Alkaline Phosphatase 65 U/L Aspartate Amino Transf (AST/SGOT) 171 U/L Alanine Aminotransferase (ALT/SGPT) 35 U/L Total Bilirubin 1.7 MG/DL Sodium Level 143 MEQ/L Potassium Level 4.7 MEQ/L Chloride Level 102 MEQ/L Carbon Dioxide Level 22.7 MEQ/L Anion Gap 18 MEQ/L Estimat Glomerular Filtration Rate 28 ML/MIN Lactic Acid Level 11.8 mmol/L B-Type Natriuretic Peptide GREATER THAN 5000 PG/ML Blood Gas Puncture Site LT RADIAL Blood Gas Patient Temperature 98.6 Blood Gas HCO3 22 mmol/L Blood Gas Base Excess -0.7 mmol/L Blood Gas Oxygen Saturation 84 % Arterial Blood pH 7.49 Arterial Blood Partial Pressure CO2 29 mmHg Arterial Blood Partial Pressure O2 51 mmHg Arterial Blood Oxygen Content 11.6 Vol % Arterial Blood Carboxyhemoglobin 1.4 % Arterial Blood Methemoglobin 1.2 % Blood Gas Hemoglobin 9.8 G/DL Oxygen Delivery Device NASAL CANNULA Blood Gas Liter Flow 2 L/M Imaging Last 48 hours Impressions Chest X-Ray 11/28/17 0800 Signed Impressions: Service Date/Time: Tuesday, November 28, 2017 07:29 - CONCLUSION: No significant interval change with persistent right greater than left pleural effusions and medial right lung base atelectasis versus consolidation. Lazaro Ames MD Chest X-Ray 11/27/17 0000 Signed Impressions: Service Date/Time: Monday, November 27, 2017 19:41 - CONCLUSION: Right greater left pleural effusions are slightly worse in the interim. Mild cardiomegaly unchanged. Vazquez Perdue MD Last 24 hours Impressions Chest X-Ray 11/28/17 0800 Signed Impressions: Service Date/Time: Tuesday, November 28, 2017 07:29 - CONCLUSION: No significant interval change with persistent right greater than left pleural effusions and medial right lung base atelectasis versus consolidation. Lazaro Ames MD (Ana Tijerina) Assessment and Plan Problem List: (1) CHF exacerbation ICD Codes: I50.9 - Heart failure, unspecified Status: Acute Assessment and Plan 72 yo WF with non-ischemic cardiomyopathy admitted for weakness and CHF CHF- decompensated with metabolic acidosis overnight. 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 All consistent with reduced cardiac output and low flow state with underperfusion. start low dose digoxin for oral positive inotropic action low urine output. JVD elevated to mandible. appears still volume overloaded. Lasix IV. monitor Cr closely. if no improvement today, low threshold for RHC to determine filling pressures transplant candidate ? Dr. Luna to return tomorrow. (Armani Barbour MD) Problem Qualifiers (1) CHF exacerbation: Qualified Codes: I50.9 - Heart failure, unspecified Ana Tijerina Nov 28, 2017 09:27 Armani Barbour MD Nov 28, 2017 10:57
[2017-11-28] MEDS ORDERED: CHLOROTHIAZIDE SOD 500 MG VIAL IV ONE (10:30)
[2017-11-28] MEDS: FUROSEMIDE 100 MG/10 ML VIAL IV PUSH SCH ×2 (10:57→17:00)
[2017-11-28] MEDS ORDERED: DIGOXIN 0.5 MG/2 ML VIAL IV PUSH ONE (11:00)
--- NOTE | 2017-11-28 11:28 | HHI.CCPN ---
Subjective Remarks/Hospital Course Hospital Course: 72-year-old female with a medical history significant for CHF, cardiomyopathy who was admitted initially at [facility] from November 08 And subsequently discharged. She has been very weak since her discharge and has had diarrhea for several months. She has also had nausea and poor appetite as well as long-standing shortness of breath. She presented back on November 23, 2017 to [facility] ER with generalized weakness as well as some shortness of breath. She had significant edema in her lower extremities. She was reportedly admitted with a sepsis at [facility] in October 2017 and CHF. Her LVEF is noted to be 20%. During previous hospitalization she was treated with IV antibiotics and pressors. She was also treated with antibiotics at that time. Patient was [facility] by [facility] on November 23 and was evaluated by cardiology. She was initiated on diuretics, IV albumin as well as milrinone gtt. Initially she received Rocephin and Flagyl which was subsequently stopped. Milrinone gtt. was titrated off at 12 noon on 11/27. Patient developed worsening shortness of breath and some altered mental status and abdominal pain subsequently. She remained on 2 L nasal cannula however was slightly tachypneic. ABG was done for further evaluation around 6 PM which revealed severe metabolic acidosis with pH 7.16, PCO2 18, PO2 98 and bicarbonate 6. Critical care was consulted on 11/27 around 6:[address] Barbour was contacted by MEDICAL SUPPLY TECHNICIAN N ordered 5 amps of sodium bicarbonate IV push. Patient's milrinone was resumed at 0.5 mics per KG per minute. I evaluated the patient after being notified of the consult and ordered stat labs and chest x-ray. When I evaluated the patient she was encephalopathic/lethargic with tachypnea. She had just received 5 A of sodium bicarbonate IV push. Stat labs are pending. Subjective: 11/28: remains in distress. lactate still elevated, and although clearing, very slowly. delayed clearance suggestive of higher mortality rate. poor urine output despite increasing doses of aggressive diuresis. had long discussion with patient, and she states she knows her heart is failing. had discussion with Dr. Barbour, and we both agree patient will need left and right heart caths in the AM and get objective evidence of PVR, PCWP and cardiac filling and output. she may need dialysis in order to offload intravascular volume from right heart failure. Objective Vital Signs Date Time Temp Pulse Resp B/P (MAP) Pulse Ox O2 Delivery O2 Flow Rate FiO2 11/28/17 10:15 97.0 11/28/17 07:00 139 11/28/17 07:00 22 88/52 (64) 94 11/28/17 07:00 Nasal Cannula 4.50 11/27/17 07:55 21 Intake and Output 11/28/17 11/28/17 11/29/17 08:00 16:00 00:00 Intake Total 1214 ml Output Total 23 ml Balance 1191 ml Result Diagram: 11/28/17 0355 11/28/17 0355 Other Results Laboratory Tests Test 11/27/17 18:00 11/27/17 19:53 11/28/17 04:29 Blood Gas Puncture Site LT RADIAL LT RADIAL LT RADIAL Blood Gas Patient Temperature 98.6 98.6 98.6 Blood Gas HCO3 6 mmol/L (22-26) 13 mmol/L (22-26) 22 mmol/L (22-26) Blood Gas Base Excess -20.8 mmol/L (-2-2) -11.2 mmol/L (-2-2) -0.7 mmol/L (-2-2) Blood Gas Oxygen Saturation 92 % (90-100) 93 % (90-100) 84 % (90-100) Arterial Blood pH 7.16 (7.380-7.420) 7.40 (7.380-7.420) 7.49 (7.380-7.420) Arterial Blood Partial Pressure CO2 18 mmHg (38-42) 21 mmHg (38-42) 29 mmHg (38-42) Arterial Blood Partial Pressure O2 98 mmHg (61-120) 83 mmHg (61-120) 51 mmHg (61-120) Arterial Blood Oxygen Content 16.0 Vol % (12.0-20.0) 15.4 Vol % (12.0-20.0) 11.6 Vol % (12.0-20.0) Arterial Blood Carboxyhemoglobin 0.5 % (0-4) 1.1 % (0-4) 1.4 % (0-4) Arterial Blood Methemoglobin 1.2 % (0-2) 1.0 % (0-2) 1.2 % (0-2) Blood Gas Hemoglobin 12.2 G/DL (12.0-16.0) 11.7 G/DL (12.0-16.0) 9.8 G/DL (12.0-16.0) Oxygen Delivery Device NASAL CANNULA SM NASAL CANNULA Blood Gas Liter Flow 2 L/M 5 L/M 2 L/M Objective Remarks HEENT/Neuro: No pallor or icterus, tongue moist, REESE, awake and alert. Neck: JVD above the level of the mandible. Chest/pulmonary: tachypneic. labored. on nc o2 but visibly distressed. Cardiovascular: Tachycardic with heart rate 140s, sinus by tele. GI/abdomen: Soft, mildly tender to palpation diffusely. no guarding Extremities: Warm bilaterally, bilateral edema A/P Assessment and Plan Assessment: 72yF with biventricular failure, severe, worsening. EF 20% and now clinically in cardiogenic shock and RV failure, Cor pulmonale, requiring inotropes. uop is poor. she would benefit from left and right heart cath in flue dust laborer and targeted inotropic therapy and diuresis. will add lasix drip for more aggressive diuresis. unfortunately, with such severe CHF, she would not do very well with renal replacement therapy given age and associated organ failures. If she does not improve with high dose inotropes and diuretics, may need to consider palliative care. remains critically ill in shock and actively worsening biventricular failure despite maximal therapy. Active problems: Severe biventricular failure Cor pulmonale cardiogenic shock acute hypoxic respiratory failure pulmonary edema Congestive hepatopathy Acute kidney injury secondary to cardiogenic shock severe pulmonary hypertension Nonischemic cardiomyopathy with LVEF 20% Metabolic acidosis: Suspect low flow state causing lactic acidosis with probable bowel ischemia Diarrhea Abdominal pain Tachycardia Bilateral pleural effusions Plan: lasix drip add metolazone. diuril was unsuccessful milrinone at 0.5 mcg/kg/hr digoxin 0.25mg iv x 1. serial LFTs, BMP, CBC trend lactates watch uop requires hough wean o2 by nv for goal spo2 > 92% have discussed with Dr. Barbour and will make NPO at [place] for possible left and right heart caths tomorrow Lomotil for diarrhea: likely this is from ischemia, but patient says it gives her symptomatic relief, and she specifically requests it. This patient remains critically ill with one or more organ systems which are or may become a threat to life. I have spent in excess of 48 minutes discontinuously in the care and management of this patient. This time is exclusive of procedures, and includes, but is not limited to, evaluation of the patient, review of the medical record, discussions with family, consultants, nursing staff, or respiratory therapy, and documentation in the medical record. Chalo Sanchez MD Nov 28, 2017 11:28
[2017-11-28] MEDS ORDERED: ENOXAPARIN SODIUM 30 MG/0.3 ML SYRINGE SQ SCH ×2 (13:00→20:00)
[2017-11-28] MEDS ORDERED: TERBUTALINE INJ 1 MG/ML AMP SQ PRN (16:30)
[2017-11-28] MEDS ORDERED: DOPamine INJ PREMIX 500 ML IV PRN (16:30)
[2017-11-28] MEDS ORDERED: METOLAZONE 5 MG TAB PO ONE (16:30)
[2017-11-28] MEDS: LOPERAMIDE HCL 2 MG CAP PO PRN ×2 (17:01→21:49)
[2017-11-28] MEDS: FUROSEMIDE INJ 100 MG in SODIUM CHLORIDE 0.9% INJ 90 ML IV SCH (17:01)
[2017-11-28] MEDS: ONDANSETRON HCL 4 MG/2 ML VIAL IV PUSH PRN (19:16)
[2017-11-28] MEDS: PANTOPRAZOLE SODIUM 40 MG VIAL IV PUSH SCH (20:26)
[2017-11-29] VITALS (8 sets, daily range): BP systolic 86–103; BP diastolic 53–58; PULSE 113–124; RESP 11–16; TEMP 97.6–98.3; O2SAT 94–98
[2017-11-29] MEDS: FUROSEMIDE INJ 100 MG in SODIUM CHLORIDE 0.9% INJ 90 ML IV SCH ×3 (01:08→08:20)
[2017-11-29 04:40] LABS: HEMOGLOBIN 10.5 GM/DL (11.6-15.3); MEAN CELL VOLUME 90.7 FL (80.0-100.0); MEAN CORPUSCULAR HEMOGLOBIN 30.7 PG (27.0-34.0); MEAN CORPUSCULAR HGB CONC 33.9 % (32.0-36.0); MEAN PLATELET VOLUME 10.1 FL (7.0-11.0); PLATELET COUNT 52 TH/MM3 (150-450); RED BLOOD COUNT 3.41 MIL/MM3 (4.00-5.30); RED CELL DISTRIBUTION WIDTH 17.9 % (11.6-17.2); WHITE BLOOD COUNT 7.2 TH/MM3 (4.0-11.0)
[2017-11-29 04:56] LABS: INTERNATIONAL NORMALIZED RATIO 1.6 RATIO; PROTHROMBIN TIME - PATIENT 16.1 SEC (9.8-11.6)
[2017-11-29 05:19] LABS: ALBUMIN 4.1 GM/DL (3.4-5.0); ALKALINE PHOSPHATASE 64 U/L (45-117); ALT (GPT) 32 U/L (10-53); AST (GOT) 93 U/L (15-37); BLOOD UREA NITROGEN 31 MG/DL (7-18); CALCIUM 8.6 MG/DL (8.5-10.1); CHLORIDE 97 MEQ/L (98-107); CREATININE 1.67 MG/DL (0.50-1.00); DIGOXIN 1.6 NG/ML (0.8-2.0); GLOMERULAR FILTRATION RATE 30 ML/MIN (>89); GLUCOSE,RANDOM 85 MG/DL (74-106); PHOSPHORUS 1.5 MG/DL (2.5-4.9); SODIUM (NA) 141 MEQ/L (136-145); TOTAL BILIRUBIN ADULT 1.7 MG/DL (0.2-1.0); TOTAL PROTEIN 6.3 GM/DL (6.4-8.2)
[2017-11-29] MEDS: MILRINONE INJ 20 MG in SODIUM CHLORIDE 0.9% INJ 80 ML IV SCH ×2 (06:21→16:28)
--- NOTE | 2017-11-29 08:57 | HHI.CCPN ---
Subjective Remarks/Hospital Course Hospital Course: 72-year-old female with a medical history significant for CHF, cardiomyopathy who was admitted initially at [facility] from November 08 And subsequently discharged. She has been very weak since her discharge and has had diarrhea for several months. She has also had nausea and poor appetite as well as long-standing shortness of breath. She presented back on November 23, 2017 to [facility] ER with generalized weakness as well as some shortness of breath. She had significant edema in her lower extremities. She was reportedly admitted with a sepsis at [facility] in October 2017 and CHF. Her LVEF is noted to be 20%. During previous hospitalization she was treated with IV antibiotics and pressors. She was also treated with antibiotics at that time. [facility] and was evaluated by cardiology. She was initiated on diuretics, IV albumin as well as milrinone gtt. Initially she received Rocephin and Flagyl which was subsequently stopped. Milrinone gtt. was titrated off at 12 noon on 11/27. Patient developed worsening shortness of breath and some altered mental status and abdominal pain subsequently. She remained on 2 L nasal cannula however was slightly tachypneic. ABG was done for further evaluation around 6 PM which revealed severe metabolic acidosis with pH 7.16, PCO2 18, PO2 98 and bicarbonate 6. Critical care was consulted on 11/27 around 6:[address] Barbour was contacted by RIVER CROSSING SUPERVISOR N ordered 5 amps of sodium bicarbonate IV push. Patient's milrinone was resumed at 0.5 mics per KG per minute. I evaluated the patient after being notified of the consult and ordered stat labs and chest x-ray. When I evaluated the patient she was encephalopathic/lethargic with tachypnea. She had just received 5 A of sodium bicarbonate IV push. Stat labs are pending. Subjective: 11/28: remains in distress. lactate still elevated, and although clearing, very slowly. delayed clearance suggestive of higher mortality rate. poor urine output despite increasing doses of aggressive diuresis. had long discussion with patient, and she states she knows her heart is failing. had discussion with Dr. Barbour, and we both agree patient will need left and right heart caths in the AM and get objective evidence of PVR, PCWP and cardiac filling and output. she may need dialysis in order to offload intravascular volume from right heart failure. 11/29: uop improved from overnight, now 50-60cc/hr. remains on lasix drip. NPO for possible LHC/RHC. Cr remains elevated, but stable: likely ARISTIDES from ATN from poor perfusion 48h ago. patient subjectively feels improved and complaining of less fatigue and sob. Objective Vital Signs Date Time Temp Pulse Resp B/P (MAP) Pulse Ox O2 Delivery O2 Flow Rate FiO2 11/29/17 07:00 98.1 118 15 87/55 (66) 97 11/29/17 07:00 Nasal Cannula 2.00 11/27/17 07:55 21 Intake and Output 11/29/17 11/29/17 11/30/17 08:00 16:00 00:00 Intake Total 485 ml Output Total 550 ml Balance -65 ml Result Diagram: 11/29/1742211/29/17422 Objective Remarks HEENT/Neuro: No pallor or icterus, tongue moist, REESE, awake and alert. Neck: JVD above the level of the mandible. Chest/pulmonary: unlabored. remains on nc o2. Cardiovascular: Tachycardic with heart rate 110s, sinus by tele. GI/abdomen: Soft, mildly tender to palpation diffusely. no guarding Extremities: Warm bilaterally, bilateral edema A/P Assessment and Plan Assessment: 72yF with biventricular failure, severe. was in cardiogenic shock when milrinone was weaned. now with persistently elevated lactate, although improving. and remains on milrinone therapy. still clinically appears volume overloaded, and likely more RV failure with cor pulmonale. improved uop with maximal diuretic therapy. Agree that LHC and RHC are indicated and will be useful in determining if this is worsening ventricular function and failure vs. volume overload and over-distended starling curve needing more aggressive diuresis. Active problems: Severe biventricular failure Cor pulmonale cardiogenic shock- some improvements but persistent. acute hypoxic respiratory failure - improving pulmonary edema - slightly improved Congestive hepatopathy - improving. Acute kidney injury secondary to cardiogenic shock severe pulmonary hypertension Nonischemic cardiomyopathy with LVEF 20% Metabolic acidosis: Suspect low flow state causing lactic acidosis with probable bowel ischemia Diarrhea - improving. Abdominal pain Tachycardia Bilateral pleural effusions Plan: continue forced diuresis possible LHC/RHC to eval filling pressures and cardiac output. continue metolazone diamox 500mg iv q8h milrinone at 0.5 mcg/kg/hr serial LFTs, BMP, CBC trend lactates watch uop requires hough wean o2 by nc for goal spo2 > 92% Dr. Luna following. Lomotil for diarrhea: likely this is from ischemia, but patient says it gives her symptomatic relief, and she specifically requests it. Remain in ICU. highly complex. off pathway. Chalo Sanchez MD Nov 29, 2017 08:57
[2017-11-29] MEDS ORDERED: MAGNESIUM SULFATE INJ 2 GM in SODIUM CHLORIDE 0.9% INJ 96 ML IV PRN (09:00)
[2017-11-29] MEDS ORDERED: POTASSIUM CHLOR 20 MEQ PREMIX 100 ML IV PRN ×2 (09:00)
[2017-11-29] MEDS ORDERED: MAGNESIUM SULFATE INJ 4 GM in SODIUM CHLORIDE 0.9% INJ 92 ML IV PRN (09:00)
[2017-11-29] MEDS ORDERED: POTASSIUM PHOSPHATE INJ 30 MMOL in SODIUM CHLOR 0.9% 250 ML INJ 250 ML IV PRN (09:00)
[2017-11-29] MEDS: ASPIRIN 81 MG CHEW TAB CHEW SCH (09:00)
[2017-11-29] MEDS ORDERED: POTASSIUM CHLORIDE 25 MEQ EFFERVESCENT TAB PO PRN (09:00)
[2017-11-29] MEDS ORDERED: POTASSIUM CHLOR 40 MEQ PREMIX 100 ML IV PRN (09:00)
[2017-11-29] MEDS ORDERED: SODIUM PHOSPHATE INJ 30 MMOL in SODIUM CHLOR 0.9% 250 ML INJ 240 ML IV PRN (09:00)
[2017-11-29] MEDS ORDERED: POTASSIUM PHOSPHATE MONOBASIC 500 MG TAB PO PRN (09:00)
[2017-11-29] MEDS ORDERED: MAGNESIUM OXIDE 400 MG TAB PO PRN (09:00)
[2017-11-29] MEDS ORDERED: POTASSIUM PHOSPHATE MONOBASIC 500 MG TAB PO/TUBE PRN (09:00)
[2017-11-29] MEDS: POTASSIUM CHLORIDE 20 MEQ PWD PACKET PO SCH ×3 (09:00→17:58)
[2017-11-29] MEDS ORDERED: METOLAZONE 5 MG TAB PO ONE (09:00)
--- NOTE | 2017-11-29 09:23 | PD.CARD.PN ---
Subjective Subjective Remarks Feeling much better today. Feels like her breathing is at baseline, but she has not tried any activity. Denies any chest pain or palpitations. Lower extremity edema is still present but improving. Objective Medications Current Medications Medications (Trade) Dose Ordered Sig/Gwendolyn Route Start Time Stop Time Status Last Admin (NS Flush) 2 ml BID IV FLUSH 11/24/17 09:00 11/28/17 20:27 (NS Flush) 2 ml UNSCH PRN IV FLUSH 11/23/17 22:15 (Aspirin Chew) 81 mg DAILY CHEW 11/24/17 09:00 11/27/17 08:56 (Zofran Inj) 4 mg Q6HR PRN IV PUSH 11/23/17 22:30 11/28/17 19:16 Albumin Human 100 ml @ 60 mls/hr BID@0830,1730 IV 11/25/17 08:30 Future Hold 11/28/17 09:05 (KCl Powder) 20 meq TID PO 11/25/17 18:00 11/28/17 17:02 Milrinone Lactate 20 mg/Sodium Chloride 100 ml @ 8.62 mls/hr [id number] IV 11/27/17 18:00 11/29/17 06:21 (Protonix Inj) 40 mg Q24H IV PUSH 11/27/17 20:00 11/28/17 20:26 (Lovenox Inj) 30 mg Q24H SQ 11/28/17 20:00 Future Hold 11/28/17 20:26 Furosemide 100 mg/ Sodium Chloride 100 ml @ 20 mls/hr CONTINUOUS IV 11/28/17 16:30 11/29/17 08:20 (Imodium) 2 mg Q4H PRN PO 11/28/17 16:30 11/28/17 21:49 (Diamox Inj) 500 mg Q8H IV PUSH 11/29/17 09:00 11/30/17 01:01 Potassium Chloride 100 ml @ 50 mls/hr Q2H PRN IV 11/29/17 09:00 Potassium Chloride 100 ml @ 50 mls/hr Q2H PRN IV 11/29/17 09:00 (K-Lyte Cl Eff) 50 meq UNSCH PRN PO 11/29/17 09:00 Potassium Chloride 100 ml @ 25 mls/hr UNSCH PRN IV 11/29/17 09:00 Potassium Chloride 100 ml @ 50 mls/hr Q2H PRN IV 11/29/17 09:00 Magnesium Sulfate 4 gm/Sodium Chloride 100 ml @ 50 mls/hr UNSCH PRN IV 11/29/17 09:00 (Mag-Ox) 800 mg UNSCH PRN PO 11/29/17 09:00 Magnesium Sulfate 2 gm/Sodium Chloride 100 ml @ 50 mls/hr UNSCH PRN IV 11/29/17 09:00 (K-Phos) 2,000 mg Q4H PRN PO 11/29/17 09:00 Sodium Phosphate 30 mmol/Sodium Chloride 250 ml @ 42 mls/hr UNSCH PRN IV 11/29/17 09:00 (K-Phos) 2,000 mg UNSCH PRN PO/TUBE 11/29/17 09:00 Potassium Phosphate 30 mmol/ Sodium Chloride 260 ml @ 42 mls/hr UNSCH PRN IV 11/29/17 09:00 Vital Signs / I&O Vital Signs Date Time Temp Pulse Resp B/P (MAP) Pulse Ox O2 Delivery O2 Flow Rate FiO2 11/29/17 07:00 98.1 118 15 87/55 (66) 97 11/29/17 07:00 124 11/29/17 07:00 97 Nasal Cannula 2.00 11/29/17 06:21 120 101/66 11/29/17 06:00 120 101/66 11/29/17 03:00 97 Nasal Cannula 2.00 11/29/17 03:00 97.6 113 11 103/55 (71) 97 11/29/17 03:00 113 11/28/17 23:00 97.6 116 12 81/49 (60) 98 11/28/17 23:00 98 Nasal Cannula 3.00 11/28/17 23:00 124 11/28/17 19:00 98 Nasal Cannula 4.00 Humidified 11/28/17 19:00 97.9 123 12 86/57 (67) 98 11/28/17 19:00 123 11/28/17 17:11 127 85/54 11/28/17 16:58 112 85/54 11/28/17 15:00 98.3 126 18 94/55 (68) 94 11/28/17 15:00 126 11/28/17 15:00 97 Nasal Cannula 4.50 11/28/17 11:00 98.6 124 17 82/55 (64) 98 11/28/17 11:00 97 Nasal Cannula 4.50 11/28/17 11:00 124 11/28/17 10:15 97.0 I/O 11/28/17 11/28/17 11/28/17 11/29/17 11/29/17 11/29/17 07:00 15:00 23:00 07:00 15:00 23:00 Intake Total 1374 ml 253 ml 613 ml 485 ml Output Total 23 ml 200 ml 550 ml Balance 1351 ml 253 ml 413 ml -65 ml Intake Oral 240 ml 500 ml 240 ml IV Total 1134 ml 253 ml 113 ml 245 ml Output Urine Total 23 ml 200 ml 550 ml # Bowel Movements 1 5 1 Physical Exam GENERAL: Well-developed well-nourished. In no acute distress. NECK: No carotid bruits. No JVD. CARDIOVASCULAR: Tachycardic rate with early beats. No murmur appreciated. RESPIRATORY: No accessory muscle use. Clear to auscultation. Breath sounds equal bilaterally. MUSCULOSKELETAL: No clubbing or cyanosis. Trace edema. NEUROLOGICAL: Awake and alert. Normal speech. Laboratory Laboratory Tests Test 11/29/17 04:23 White Blood Count 7.2 TH/MM3 Red Blood Count 3.41 MIL/MM3 Hemoglobin 10.5 GM/DL Hematocrit 31.0 % Mean Corpuscular Volume 90.7 FL Mean Corpuscular Hemoglobin 30.7 PG Mean Corpuscular Hemoglobin Concent 33.9 % Red Cell Distribution Width 17.9 % Platelet Count 52 TH/MM3 Mean Platelet Volume 10.1 FL Prothrombin Time 16.1 SEC Prothromb Time International Ratio 1.6 RATIO Activated Partial Thromboplast Time 46.4 SEC Blood Urea Nitrogen 31 MG/DL Creatinine 1.67 MG/DL Random Glucose 85 MG/DL Total Protein 6.3 GM/DL Albumin 4.1 GM/DL Calcium Level 8.6 MG/DL Phosphorus Level 1.5 MG/DL Alkaline Phosphatase 64 U/L Aspartate Amino Transf (AST/SGOT) 93 U/L Alanine Aminotransferase (ALT/SGPT) 32 U/L Total Bilirubin 1.7 MG/DL Sodium Level 141 MEQ/L Potassium Level 3.6 MEQ/L Chloride Level 97 MEQ/L Carbon Dioxide Level 30.0 MEQ/L Anion Gap 14 MEQ/L Estimat Glomerular Filtration Rate 30 ML/MIN Lactic Acid Level 3.5 mmol/L Digoxin Level 1.6 NG/ML Imaging Last Impressions Chest X-Ray 11/28/17 0800 Signed Impressions: Service Date/Time: Tuesday, November 28, 2017 07:29 - CONCLUSION: No significant interval change with persistent right greater than left pleural effusions and medial right lung base atelectasis versus consolidation. Lazaro Ames MD Abdomen/Pelvis CT 11/23/17 0000 Signed Impressions: Service Date/Time: Thursday, November 23, 2017 21:30 - CONCLUSION: 1. No obstruction or acute inflammatory changes are seen in the abdomen or pelvis. 2. Apparent complex cystic and solid mass of the mid zone of the right kidney. A followup MRI of the abdomen is recommended with and without contrast in approximately 3 months. This may be helpful in further characterizing a small, probably benign but nonspecific hypodensity of the liver. 3. Nonspecific right greater than left pleural effusions and basilar atelectasis. There is an area of nonenhancing right lower lobe pulmonary parenchyma compatible with pneumonia. Infection and post obstructive process would be in the differential. After treatment for presumed pneumonia, a followup CT of the chest, preferably with intravenous contrast, is recommended within the next couple of months, sooner if felt clinically indicated. 4. Also a nonspecific moderate size pericardial effusion. 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 Still with impaired lactate, renal function, and hepatic congestion. All consistent with reduced cardiac output and low flow state with underperfusion. Started on low dose digoxin for oral positive inotropic action Still with low urine output, maintain Vazquez for now and monitor output Continue Lasix IV for volume overload and monitor Cr closely. Could consider RHC to determine filling pressures transplant candidate ? Could consider Entresto if hypotension improves Problem Qualifiers (1) CHF exacerbation: Qualified Codes: I50.9 - Heart failure, unspecified Eder Morrison Nov 29, 2017 09:23
[2017-11-29] MEDS: SODIUM CHLORIDE 0.9% FLUSH 10 ML FLUSH IV FLUSH SCH ×2 (09:59→21:00)
--- NOTE | 2017-11-29 12:13 | PD.CONS ---
Consult Service Palliative Care Consult Requested By Dr. Sanchez . Primary Care Physician Shaka Rose M.D. . Reason for Consultation a. To assist with evaluation and management of symptoms including: Dyspnea b. To assist medical decision maker(s) with: better understanding of current medical conditions; weighing benefits/burdens of medical treatment options; making medical treatment decisions. . HPI History of Present Illness This 72-year-old female, with a past history of CHF, hypertension, and degenerative arthritis, was admitted to [facility] with her initial presentation of CHF in August 2017. She was readmitted there 3 or 4 weeks ago because of another exacerbation, but was able to return home. She reports that her leg edema continued to worsen, that she felt weaker, and that she became more and more dyspneic at home, finally returning to the emergency department here on 11/23/17. She reports that her recent ejection fraction was determined to be 20%, and because of hypotension she was intolerant to russell inhibitors. She had not been having chest pain. In the emergency department, findings included: * Weakness, some dyspnea * Temp 97.4, pulse 92, respirations 16, blood pressure 93/66, oxygen saturation 95% on 2 L * White count 7.1, hemoglobin 13.4 * Sodium 134, creatinine 1.4, albumin 2.8 * AST 39, ALT 17 * BNP 3089 * Chest x-ray with bilateral effusions right greater than left * CT abdomen/pelvis revealed a 23 mm cyst with possible mildly enhancing soft tissue at its inferior margin in the right kidney The patient was admitted to the cardiovascular ICU. She developed worsening effusions on chest x-ray, worsening dyspnea, altered mental status, and an acidosis with pH 7.16 on 11/27/16. Amps of bicarbonate were given. The patient' s urine output was poor on 11/28/17, and her blood pressure was in the 80s systolic. Her creatinine was higher on the day of this consultation, with creatinine 1.67; in addition, AST was 93, ALT 32, and bilirubin 1.7. The patient had some colitis that was suspected to be due to her low flow state, and the hepatic congestion was also attributed to that. A continuous infusion of Lasix did produce more diuresis, and the patient's dyspnea was improved on the day of this consultation. At the time of this consultation, the patient is being considered for possible right and left heart caths; the patient reports that she has never had a cardiac catheterization. Palliative Care was consulted to assist with symptom management, and to enter into discussions with the patient and family regarding her current illnesses, prognosis, and the benefits and burdens of the various treatment choices. . Function/Cognitive Trajectory The patient has been living and functioning independently, but in the couple days prior to this hospitalization she had weakness and pronounced edema that had become too severe for her to ambulate. . Review of Systems Constitutional: COMPLAINS OF: Weight gain (attributed to edema) Endocrine: DENIES: Polyuria Eyes: DENIES: Eye inflammation Ears, nose, mouth, throat: DENIES: Epistaxis Respiratory: COMPLAINS OF: Shortness of breath, DENIES: Apneas, Cough, Wheezing , Hemoptysis Cardiovascular: COMPLAINS OF: Dyspnea on Exertion, Lower Extremity Edema, DENIES: Chest pain, Palpitations, Syncope Gastrointestinal: COMPLAINS OF: Diarrhea (attributed to colitis), DENIES: Bloody stools, Constipation, Vomiting, Vomiting blood Genitourinary: DENIES: Hematuria Musculoskeletal: DENIES: Back pain, Neck pain Integumentary: DENIES: Rash Hematologic/Lymphatics: DENIES: Lymphadenopathy Immunologic/Allergic: DENIES: Urticaria Neurologic: COMPLAINS OF: Paresthesias (legs, attributed to peripheral neuropathy), DENIES: Headache, Localized weakness Psychiatric: COMPLAINS OF: Confusion (after admission, but cleared), DENIES: Depression, Hallucinations Past Family Social History Coded Allergies: codeine (Unverified Allergy, Severe, ITCH, 06/29/17) penicillin G (Unverified Allergy, Severe, RASH, 06/29/17) vancomycin (Unverified Allergy, Severe, HIVES, EDEMA/SWELLING, 06/29/17) Uncoded Allergies: ANGIOTENSIN RECEPTOR MARIA VICTORIA (Adverse Reaction, Severe, Cough, 11/19/16) Past Medical History * Congestive heart failure, initially diagnosed August 2017 * History of hypertension * \\GERD * Degenerative arthritis * History of colitis * History of hyperthyroidism * Peripheral neuropathy * History of B12 deficiency * Avascular necrosis left hip 2002 . Past Surgical History * Cholecystectomy * Ventral herniorrhaphy 1995 * Left hip replacement, November 2003 * Right hip replacement, October 2004 * Cataracts, November 2016 and December 2016 . Reported Medications Reported Meds & Active Scripts Active Reported Diphenoxylate-Atropine 2.5-0.025 Mg Tab 1 Tab PO Q6H PRN Folic Acid 0.4 Mg Tab 1 Mg PO DAILY Vitamin D3 (Cholecalciferol) 1,000 Unit Cap 1,000 Units PO DAILY Furosemide 40 Mg Tab 40 Mg PO DAILY Pantoprazole (Pantoprazole Sodium) 40 Mg Tab 40 Mg PO DAILY K-Tab (Potassium Chloride) 10 Meq Tab 10 Meq PO DAILY . Current Medications Medications (Trade) Dose Ordered Sig/Gwendolyn Route Start Time Stop Time Status Last Admin (NS Flush) 2 ml BID IV FLUSH 11/24/17 09:00 11/29/17 09:59 (NS Flush) 2 ml UNSCH PRN IV FLUSH 11/23/17 22:15 (Aspirin Chew) 81 mg DAILY CHEW 11/24/17 09:00 11/27/17 08:56 (Zofran Inj) 4 mg Q6HR PRN IV PUSH 11/23/17 22:30 11/28/17 19:16 Albumin Human 100 ml @ 60 mls/hr BID@0830,1730 IV 11/25/17 08:30 Future Hold 11/28/17 09:05 (KCl Powder) 20 meq TID PO 11/25/17 18:00 11/29/17 09:00 Milrinone Lactate 20 mg/Sodium Chloride 100 ml @ 8.62 mls/hr [id number] IV 11/27/17 18:00 11/29/17 06:21 (Protonix Inj) 40 mg Q24H IV PUSH 11/27/17 20:00 11/28/17 20:26 (Lovenox Inj) 30 mg Q24H SQ 11/28/17 20:00 Future Hold 11/28/17 20:26 (Imodium) 2 mg Q4H PRN PO 11/28/17 16:30 11/28/17 21:49 (Diamox Inj) 500 mg Q8H IV PUSH 11/29/17 09:00 11/30/17 01:01 11/29/17 09:59 Potassium Chloride 100 ml @ 50 mls/hr Q2H PRN IV 11/29/17 09:00 Potassium Chloride 100 ml @ 50 mls/hr Q2H PRN IV 11/29/17 09:00 (K-Lyte Cl Eff) 50 meq UNSCH PRN PO 11/29/17 09:00 Potassium Chloride 100 ml @ 25 mls/hr UNSCH PRN IV 11/29/17 09:00 Potassium Chloride 100 ml @ 50 mls/hr Q2H PRN IV 11/29/17 09:00 Magnesium Sulfate 4 gm/Sodium Chloride 100 ml @ 50 mls/hr UNSCH PRN IV 11/29/17 09:00 (Mag-Ox) 800 mg UNSCH PRN PO 11/29/17 09:00 Magnesium Sulfate 2 gm/Sodium Chloride 100 ml @ 50 mls/hr UNSCH PRN IV 11/29/17 09:00 (K-Phos) 2,000 mg Q4H PRN PO 11/29/17 09:00 11/29/17 09:57 Sodium Phosphate 30 mmol/Sodium Chloride 250 ml @ 42 mls/hr UNSCH PRN IV 11/29/17 09:00 (K-Phos) 2,000 mg UNSCH PRN PO/TUBE 11/29/17 09:00 Potassium Phosphate 30 mmol/ Sodium Chloride 260 ml @ 42 mls/hr UNSCH PRN IV 11/29/17 09:00 Family History The patient's mother at age 84 after CABG and pacemaker. Her father of leukemia at a younger age. The patient has no siblings, and she knows of no other relative with significant cardiac disease. . Substance Use Tobacco: None Alcohol: Occasional, social Prescription med abuse: None Illicits: None . Psychosocial History The patient was born and raised in [place], [place]. She went to [employer] where she earned a bachelor's degree in Panamanian/political science, and a master's degree in high school counseling. She was once, in January 2012 of apparent sudden cardiac . She has 3 sons, all of whom live locally. There are 3 grandchildren. 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 . Spiritual/Cultural Factors Spirituality and her kumar has been very important to her. She has a Yarsanism background, but has been [employer] for many years, currently being supported by her tool setter. . Living Will: Copy in medical record Health Care Surrogate: Copy in medical record Durable Power of Offshore Diver: Never completed Health Care Surrogate(s): Primary healthcare surrogate his son Fermin, secondary is son Noel . Documented care wishes: The patient has a living will . Today's verbally stated goals: There has been discussion about possible placement of an AICD, and the patient would want that. She is willing to undergo heart cath to see if that may also help in effective treatment. If her kidneys were to fail, she would want additional discussion prior to considering dialysis. If she suffers cardiac arrest and is on a ventilator, she reports she would not want to be kept on life support "very long if I really wasn't going to get much better." She is open to hospice services if her disease processes or complications seen to be progressing or if additional complications confirm that she is end-stage. . Family/friends goals: The patient's [id number] is present for the initial consultation and supports the patient's wishes. . Ethical and Legal Issues There are no ethical issues that would impact her care or decision-making at this time. The patient has capacity for decision-making. She has designated sons Fermin and Noel as primary and secondary HCS respectively. . Physical Exam Vital Signs Date Time Temp Pulse Resp B/P (MAP) Pulse Ox O2 Delivery O2 Flow Rate FiO2 11/29/17 09:39 97 Nasal Cannula 2.00 11/29/17 07:00 98.1 118 15 87/55 (66) 97 11/29/17 07:00 124 11/29/17 07:00 97 Nasal Cannula 2.00 11/29/17 06:21 120 101/66 11/29/17 06:00 120 101/66 11/29/17 03:00 97 Nasal Cannula 2.00 11/29/17 03:00 97.6 113 11 103/55 (71) 97 11/29/17 03:00 113 11/28/17 23:00 97.6 116 12 81/49 (60) 98 11/28/17 23:00 98 Nasal Cannula 3.00 11/28/17 23:00 124 11/28/17 19:00 98 Nasal Cannula 4.00 Humidified 11/28/17 19:00 97.9 123 12 86/57 (67) 98 11/28/17 19:00 123 11/28/17 17:11 127 85/54 11/28/17 16:58 112 85/54 11/28/17 15:00 98.3 126 18 94/55 (68) 94 11/28/17 15:00 126 11/28/17 15:00 97 Nasal Cannula 4.50 Exam CONSTITUTIONAL/GENERAL: This is a weak patient, in no apparent distress. TUBES/LINES/DRAINS: Nasal O2, IV access, Vazquez SKIN: No jaundice, rashes, or lesions. Ecchymoses on upper extremities. No wounds seen anteriorly. Skin temperature appropriate. Not diaphoretic. HEAD: Atraumatic. Normocephalic. EYES: Pupils equal and round and reactive. Extraocular motions intact. No scleral icterus. No injection or drainage. Fundi not examined. ENT: Hearing grossly normal. Nose without bleeding or purulent drainage. Throat without visible erythema, exudates, masses, or lesions. NECK: Trachea midline. Supple, nontender. No palpable thyroid enlargement or nodularity. CARDIOVASCULAR: Regular rate and rhythm with grade 1 systolic murmur. At 30% incline, some JVD. Peripheral pulses diminished in feet. RESPIRATORY/CHEST: Symmetric, unlabored respirations. Breath sounds equal bilaterally. Some scattered rales GASTROINTESTINAL: Abdomen soft, non-tender, nondistended. No hepato-splenomegaly , or palpable masses. No guarding. Bowel sounds present. GENITOURINARY: Without palpable bladder distension. Vazquez catheter is present MUSCULOSKELETAL: Extremities without clubbing, cyanosis, or edema. No joint tenderness or effusion noted. No calf tenderness. No mottling or clubbing. LYMPHATICS: No palpable cervical or supraclavicular adenopathy. NEUROLOGICAL: Awake and alert. Motor and sensory grossly within normal limits. Follows commands. Cognitively sharp. Moves all extremities. PSYCHIATRIC: No obvious anxiety/depression. no apparent hallucinations or other psychotic thought process. . Diagnostic Tests Laboratory Laboratory Tests Test 11/27/17 04:10 11/27/17 18:00 11/27/17 19:53 11/27/17 20:18 Blood Urea Nitrogen 25 MG/DL (7-18) 28 MG/DL (7-18) Creatinine 0.99 MG/DL (0.50-1.00) 1.61 MG/DL (0.50-1.00) Random Glucose 116 MG/DL (74-106) 76 MG/DL (74-106) Calcium Level 7.9 MG/DL (8.5-10.1) 8.8 MG/DL (8.5-10.1) Magnesium Level 1.2 MG/DL (1.5-2.5) 2.2 MG/DL (1.5-2.5) Sodium Level 140 MEQ/L (136-145) 140 MEQ/L (136-145) Potassium Level 3.7 MEQ/L (3.5-5.1) 5.7 MEQ/L (3.5-5.1) Chloride Level 104 MEQ/L (98-107) 101 MEQ/L (98-107) Carbon Dioxide Level 25.1 MEQ/L (21.0-32.0) 12.0 MEQ/L (21.0-32.0) Anion Gap 11 MEQ/L (5-15) 27 MEQ/L (5-15) Estimat Glomerular Filtration Rate 55 ML/MIN (>89) 32 ML/MIN (>89) Blood Gas Puncture Site LT RADIAL LT RADIAL Blood Gas Patient Temperature 98.6 98.6 Blood Gas HCO3 6 mmol/L (22-26) 13 mmol/L (22-26) Blood Gas Base Excess -20.8 mmol/L (-2-2) -11.2 mmol/L (-2-2) Blood Gas Oxygen Saturation 92 % (90-100) 93 % (90-100) Arterial Blood pH 7.16 (7.380-7.420) 7.40 (7.380-7.420) Arterial Blood Partial Pressure CO2 18 mmHg (38-42) 21 mmHg (38-42) Arterial Blood Partial Pressure O2 98 mmHg (61-120) 83 mmHg (61-120) Arterial Blood Oxygen Content 16.0 Vol % (12.0-20.0) 15.4 Vol % (12.0-20.0) Arterial Blood Carboxyhemoglobin 0.5 % (0-4) 1.1 % (0-4) Arterial Blood Methemoglobin 1.2 % (0-2) 1.0 % (0-2) Blood Gas Hemoglobin 12.2 G/DL (12.0-16.0) 11.7 G/DL (12.0-16.0) Oxygen Delivery Device NASAL CANNULA SM Blood Gas Liter Flow 2 L/M 5 L/M Total Protein 7.5 GM/DL (6.4-8.2) Albumin 4.7 GM/DL (3.4-5.0) Phosphorus Level 2.5 MG/DL (2.5-4.9) Alkaline Phosphatase 90 U/L (45-117) Aspartate Amino Transf (AST/SGOT) 130 U/L (15-37) Alanine Aminotransferase (ALT/SGPT) 25 U/L (10-53) Total Bilirubin 3.3 MG/DL (0.2-1.0) Test 11/27/17 20:30 11/28/17 02:45 11/28/17 03:55 11/28/17 04:29 White Blood Count 10.1 TH/MM3 (4.0-11.0) 8.5 TH/MM3 (4.0-11.0) Red Blood Count 4.11 MIL/MM3 (4.00-5.30) 3.30 MIL/MM3 (4.00-5.30) Hemoglobin 12.3 GM/DL (11.6-15.3) 9.9 GM/DL (11.6-15.3) Hematocrit 37.8 % (35.0-46.0) 29.5 % (35.0-46.0) Mean Corpuscular Volume 91.8 FL (80.0-100.0) 89.4 FL (80.0-100.0) Mean Corpuscular Hemoglobin 29.9 PG (27.0-34.0) 30.0 PG (27.0-34.0) Mean Corpuscular Hemoglobin Concent 32.6 % (32.0-36.0) 33.5 % (32.0-36.0) Red Cell Distribution Width 18.0 % (11.6-17.2) 17.7 % (11.6-17.2) Platelet Count 84 TH/MM3 (150-450) 67 TH/MM3 (150-450) Mean Platelet Volume 9.7 FL (7.0-11.0) 9.5 FL (7.0-11.0) Neutrophils (%) (Auto) 83.6 % (16.0-70.0) 82.0 % (16.0-70.0) Lymphocytes (%) (Auto) 9.4 % (9.0-44.0) 11.5 % (9.0-44.0) Monocytes (%) (Auto) 6.8 % (0.0-8.0) 6.3 % (0.0-8.0) Eosinophils (%) (Auto) 0.0 % (0.0-4.0) 0.0 % (0.0-4.0) Basophils (%) (Auto) 0.2 % (0.0-2.0) 0.2 % (0.0-2.0) Neutrophils # (Auto) 8.5 TH/MM3 (1.8-7.7) 7.0 TH/MM3 (1.8-7.7) Lymphocytes # (Auto) 0.9 TH/MM3 (1.0-4.8) 1.0 TH/MM3 (1.0-4.8) Monocytes # (Auto) 0.7 TH/MM3 (0-0.9) 0.5 TH/MM3 (0-0.9) Eosinophils # (Auto) 0.0 TH/MM3 (0-0.4) 0.0 TH/MM3 (0-0.4) Basophils # (Auto) 0.0 TH/MM3 (0-0.2) 0.0 TH/MM3 (0-0.2) CBC Comment AUTO DIFF AUTO DIFF Differential Comment AUTO DIFF CONFIRMED AUTO DIFF CONFIRMED Prothrombin Time 19.5 SEC (9.8-11.6) Prothromb Time International Ratio 1.9 RATIO Activated Partial Thromboplast Time 38.3 SEC (24.3-30.1) Lactic Acid Level 17.6 mmol/L (0.4-2.0) 11.8 mmol/L (0.4-2.0) B-Type Natriuretic Peptide GREATER THAN 5000 PG/ML GREATER THAN 5000 PG/ML Stool C. difficile Toxin (PCR) NEGATIVE (NEGATIVE) Stl C. difficile Toxin Epiderm 027 PRESUMPTIVE NEGATIVE Platelet Estimate LOW (NORMAL) Platelet Morphology Comment NORMAL (NORMAL) Target Cells 1+ (NORMAL) Blood Urea Nitrogen 29 MG/DL (7-18) Creatinine 1.76 MG/DL (0.50-1.00) Random Glucose 112 MG/DL (74-106) Total Protein 6.1 GM/DL (6.4-8.2) Albumin 3.9 GM/DL (3.4-5.0) Calcium Level 8.1 MG/DL (8.5-10.1) Phosphorus Level 1.8 MG/DL (2.5-4.9) Magnesium Level 1.8 MG/DL (1.5-2.5) Alkaline Phosphatase 65 U/L (45-117) Aspartate Amino Transf (AST/SGOT) 171 U/L (15-37) Alanine Aminotransferase (ALT/SGPT) 35 U/L (10-53) Total Bilirubin 1.7 MG/DL (0.2-1.0) Sodium Level 143 MEQ/L (136-145) Potassium Level 4.7 MEQ/L (3.5-5.1) Chloride Level 102 MEQ/L (98-107) Carbon Dioxide Level 22.7 MEQ/L (21.0-32.0) Anion Gap 18 MEQ/L (5-15) Estimat Glomerular Filtration Rate 28 ML/MIN (>89) Blood Gas Puncture Site LT RADIAL Blood Gas Patient Temperature 98.6 Blood Gas HCO3 22 mmol/L (22-26) Blood Gas Base Excess -0.7 mmol/L (-2-2) Blood Gas Oxygen Saturation 84 % (90-100) Arterial Blood pH 7.49 (7.380-7.420) Arterial Blood Partial Pressure CO2 29 mmHg (38-42) Arterial Blood Partial Pressure O2 51 mmHg (61-120) Arterial Blood Oxygen Content 11.6 Vol % (12.0-20.0) Arterial Blood Carboxyhemoglobin 1.4 % (0-4) Arterial Blood Methemoglobin 1.2 % (0-2) Blood Gas Hemoglobin 9.8 G/DL (12.0-16.0) Oxygen Delivery Device NASAL CANNULA Blood Gas Liter Flow 2 L/M Test 11/29/17 04:23 11/29/17 09:52 White Blood Count 7.2 TH/MM3 (4.0-11.0) Red Blood Count 3.41 MIL/MM3 (4.00-5.30) Hemoglobin 10.5 GM/DL (11.6-15.3) Hematocrit 31.0 % (35.0-46.0) Mean Corpuscular Volume 90.7 FL (80.0-100.0) Mean Corpuscular Hemoglobin 30.7 PG (27.0-34.0) Mean Corpuscular Hemoglobin Concent 33.9 % (32.0-36.0) Red Cell Distribution Width 17.9 % (11.6-17.2) Platelet Count 52 TH/MM3 (150-450) Mean Platelet Volume 10.1 FL (7.0-11.0) Prothrombin Time 16.1 SEC (9.8-11.6) Prothromb Time International Ratio 1.6 RATIO Activated Partial Thromboplast Time 46.4 SEC (24.3-30.1) Blood Urea Nitrogen 31 MG/DL (7-18) Creatinine 1.67 MG/DL (0.50-1.00) Random Glucose 85 MG/DL (74-106) Total Protein 6.3 GM/DL (6.4-8.2) Albumin 4.1 GM/DL (3.4-5.0) Calcium Level 8.6 MG/DL (8.5-10.1) Phosphorus Level 1.5 MG/DL (2.5-4.9) Alkaline Phosphatase 64 U/L (45-117) Aspartate Amino Transf (AST/SGOT) 93 U/L (15-37) Alanine Aminotransferase (ALT/SGPT) 32 U/L (10-53) Total Bilirubin 1.7 MG/DL (0.2-1.0) Sodium Level 141 MEQ/L (136-145) Potassium Level 3.6 MEQ/L (3.5-5.1) Chloride Level 97 MEQ/L (98-107) Carbon Dioxide Level 30.0 MEQ/L (21.0-32.0) Anion Gap 14 MEQ/L (5-15) Estimat Glomerular Filtration Rate 30 ML/MIN (>89) Lactic Acid Level 3.5 mmol/L (0.4-2.0) Magnesium Level 1.7 MG/DL (1.5-2.5) Digoxin Level 1.6 NG/ML (0.8-2.0) Result Diagram: 11/29/17 0423 11/29/17 0423 Imaging Last Impressions Chest X-Ray 11/28/17 0800 Signed Impressions: Service Date/Time: Tuesday, November 28, 2017 07:29 - CONCLUSION: No significant interval change with persistent right greater than left pleural effusions and medial right lung base atelectasis versus consolidation. Lazaro Ames MD Abdomen/Pelvis CT 11/23/17 0000 Signed Impressions: Service Date/Time: Thursday, November 23, 2017 21:30 - CONCLUSION: 1. No obstruction or acute inflammatory changes are seen in the abdomen or pelvis. 2. Apparent complex cystic and solid mass of the mid zone of the right kidney. A followup MRI of the abdomen is recommended with and without contrast in approximately 3 months. This may be helpful in further characterizing a small, probably benign but nonspecific hypodensity of the liver. 3. Nonspecific right greater than left pleural effusions and basilar atelectasis. There is an area of nonenhancing right lower lobe pulmonary parenchyma compatible with pneumonia. Infection and post obstructive process would be in the differential. After treatment for presumed pneumonia, a followup CT of the chest, preferably with intravenous contrast, is recommended within the next couple of months, sooner if felt clinically indicated. 4. Also a nonspecific moderate size pericardial effusion. Vazquez Perdue MD Patient/Family Conference Present at Family Conference: The patient's [id number] Amarilis was present for the last half of the discussion. . Family Conference Time (mins): 55 Family Conference Location: Bedside Issues Discussed: * Palliative care role, purpose, approach * Hospice care role, purpose, approach * Additional medical, psychosocial, and spiritual history * Patients general health, functional status, and cognitive changes in the months leading up to the current hospitalization * Patient/family understanding of the current medical problems * Patient/family understanding of prognosis * Patients goals of care as best understood from advance directives and/or conversations and/or values * Current medical treatment options and benefits/burdens of those options * Likely scenarios comparing ongoing aggressive care with a transition to comfort measures only * Questions answered to the best of my ability * Palliative care contact information provided There has been discussion about possible placement of an AICD, and the patient would want that. She is willing to undergo heart cath to see if that may also help in effective treatment. If her kidneys were to fail, she would want additional discussion prior to considering dialysis. If she suffers cardiac arrest and is on a ventilator, she reports she would not want to be kept on life support "very long if I really wasn't going to get much better." She is open to hospice services if her disease seems to be progressing or if additional complications confirm that she is end-stage. . Assessment and Plan Disease Oriented Problem List: (1) cardiomyopathy (2) congestive failure with pronounced right side failure symptoms (3) low flow state, with some hepatic, renal, and GI effects (4) CHF, first diagnosed August 2017 (5) right kidney cyst on CT scan, possibly complex (6) colitis, possible ischemic (7) GERD (8) history of hypertension (9) history of hyperthyroid (10) peripheral neuropathy (11) history of B12 deficiency (12) history of avascular necrosis left hip 2002 Symptom Scale: (1) dyspnea 0-10 Scale: 1 (2) weakness 0-10 Scale: 6 Pertinent Non-Medical Issues Psychosocial: , 3 sons living locally, 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 She has a Y[employer]anism background, but has been [employer] for many years, currently being supported by her tool setter. Legal: The patient has capacity for decision-making. She has designated her sons Fermin and Noel as primary and secondary HCS respectively. Ethical issues impacting care: None . Important Contacts Son: Fermin Bernard [phone] Son: Noel Bernard [phone] . Prognosis Overall, her prognosis is quite guarded. She has significant cardiomyopathy with low flow state. She will be appropriate for hospice services if the upcoming studies confirm end-stage disease, and if the goals become solely comfort oriented. . Code Status: Full Code Plan * FULL CODE * DECISION-MAKING: The patient has capacity for decision-making. She has designated her sons Fermin and Noel as primary and secondary HCS respectively. * GOALS: There has been discussion about possible placement of an AICD, and the patient would want that. She is willing to undergo heart cath to see if that may also help in effective treatment. If her kidneys were to fail, she would want additional discussion prior to considering dialysis. If she suffers cardiac arrest and is on a ventilator, she reports she would not want to be kept on life support "very long if I really wasn't going to get much better." She is open to hospice services if her disease processes or complications seen to be progressing or if additional complications confirm that she is end-stage. * SYMPTOMS: The patient's dyspnea has improved over the past days as the urine output has increased and the edema has subsided. She has no pain. I have no additional medication recommendations at this time. * It is likely she will have additional investigative procedures, and further discussions regarding prognosis and goals will be undertaken as that information becomes more clear. * Palliative Care will continue to follow the patient during this hospitalization. . Time Spent Total Floor Time (mins): 79 Face to Face Time (mins): 62 >50% Counseling/Coord of Care: Yes (d/w Dr. Luna) Thank you for the opportunity to participate in the care of Ms. Bernard. Attestation To help prompt me to consider important information that might be impacting today's encounter and assessment, information from prior notes written by myself or my colleagues may have been "brought forward" into today's note. My signature on this note, however, is an attestation that I personally performed the exam, history, and/or decision-making noted today, and, unless otherwise indicated, the interactions with patient, family, and staff as well as the review of records all occurred today. I also attest that the listed assessment and stated plan reflect my best clinical judgment today based on the combination of historical information, prior notes, and today's exam/ interactions. When time spent is documented, it refers only to time spent today by the signer, or if indicated, combined time spent today by collaborating physician/nurse practitioner. Evelyn Desir MD Nov 29, 2017 12:13
[2017-11-29] MEDS: ONDANSETRON HCL 4 MG/2 ML VIAL IV PUSH PRN (15:04)
[2017-11-29] MEDS: LOPERAMIDE HCL 2 MG CAP PO PRN ×2 (15:05→22:18)
[2017-11-29] MEDS: PANTOPRAZOLE SODIUM 40 MG VIAL IV PUSH SCH (19:44)
[2017-11-30] VITALS (17 sets, daily range): BP systolic 76–103; BP diastolic 43–73; PULSE 109–131; RESP 12–25; TEMP 97.7–98.8; O2SAT 90–99
[2017-11-30 05:08] LABS: HEMATOCRIT 30.2 % (35.0-46.0); HEMOGLOBIN 9.9 GM/DL (11.6-15.3); MEAN CELL VOLUME 92.1 FL (80.0-100.0); MEAN CORPUSCULAR HEMOGLOBIN 30.3 PG (27.0-34.0); MEAN CORPUSCULAR HGB CONC 32.9 % (32.0-36.0); MEAN PLATELET VOLUME 10.4 FL (7.0-11.0); PLATELET COUNT 47 TH/MM3 (150-450); RED BLOOD COUNT 3.28 MIL/MM3 (4.00-5.30); RED CELL DISTRIBUTION WIDTH 17.8 % (11.6-17.2); WHITE BLOOD COUNT 6.9 TH/MM3 (4.0-11.0)
[2017-11-30 05:19] LABS: INTERNATIONAL NORMALIZED RATIO 1.5 RATIO; PROTHROMBIN TIME - PATIENT 15.6 SEC (9.8-11.6)
[2017-11-30 05:35] LABS: ALBUMIN 3.8 GM/DL (3.4-5.0); AST (GOT) 70 U/L (15-37); BICARBONATE 29.6 MEQ/L (21.0-32.0); BLOOD UREA NITROGEN 34 MG/DL (7-18); CALCIUM 8.5 MG/DL (8.5-10.1); CHLORIDE 97 MEQ/L (98-107); CREATININE 1.68 MG/DL (0.50-1.00); GLOMERULAR FILTRATION RATE 30 ML/MIN (>89); GLUCOSE,RANDOM 75 MG/DL (74-106); SODIUM (NA) 139 MEQ/L (136-145)
[2017-11-30 05:38] LABS: ALKALINE PHOSPHATASE 72 U/L (45-117); ALT (GPT) 30 U/L (10-53); PHOSPHORUS 2.4 MG/DL (2.5-4.9); TOTAL BILIRUBIN ADULT 1.2 MG/DL (0.2-1.0); TOTAL PROTEIN 6.1 GM/DL (6.4-8.2)
--- NOTE | 2017-11-30 07:41 | PD.CARD.PN ---
Subjective Subjective Remarks feels better. edema much improved. Renal function unchanged. Creatinine 1.68. Objective Medications Current Medications Medications (Trade) Dose Ordered Sig/Gwendolyn Route Start Time Stop Time Status Last Admin (NS Flush) 2 ml BID IV FLUSH 11/24/17 09:00 11/29/17 21:00 (NS Flush) 2 ml UNSCH PRN IV FLUSH 11/23/17 22:15 (Aspirin Chew) 81 mg DAILY CHEW 11/24/17 09:00 11/27/17 08:56 (Zofran Inj) 4 mg Q6HR PRN IV PUSH 11/23/17 22:30 11/29/17 15:04 Albumin Human 100 ml @ 60 mls/hr BID@0830,1730 IV 11/25/17 08:30 Future Hold 11/28/17 09:05 (KCl Powder) 20 meq TID PO 11/25/17 18:00 11/29/17 17:58 Milrinone Lactate 20 mg/Sodium Chloride 100 ml @ 8.62 mls/hr [id number] IV 11/27/17 18:00 11/29/17 16:28 (Protonix Inj) 40 mg Q24H IV PUSH 11/27/17 20:00 11/29/17 19:44 (Lovenox Inj) 30 mg Q24H SQ 11/28/17 20:00 Future Hold 11/28/17 20:26 (Imodium) 2 mg Q4H PRN PO 11/28/17 16:30 11/29/17 22:18 Potassium Chloride 100 ml @ 50 mls/hr Q2H PRN IV 11/29/17 09:00 Potassium Chloride 100 ml @ 50 mls/hr Q2H PRN IV 11/29/17 09:00 (K-Lyte Cl Eff) 50 meq UNSCH PRN PO 11/29/17 09:00 Potassium Chloride 100 ml @ 25 mls/hr UNSCH PRN IV 11/29/17 09:00 Potassium Chloride 100 ml @ 50 mls/hr Q2H PRN IV 11/29/17 09:00 Magnesium Sulfate 4 gm/Sodium Chloride 100 ml @ 50 mls/hr UNSCH PRN IV 11/29/17 09:00 (Mag-Ox) 800 mg UNSCH PRN PO 11/29/17 09:00 Magnesium Sulfate 2 gm/Sodium Chloride 100 ml @ 50 mls/hr UNSCH PRN IV 11/29/17 09:00 (K-Phos) 2,000 mg Q4H PRN PO 11/29/17 09:00 11/29/17 09:57 Sodium Phosphate 30 mmol/Sodium Chloride 250 ml @ 42 mls/hr UNSCH PRN IV 11/29/17 09:00 (K-Phos) 2,000 mg UNSCH PRN PO/TUBE 11/29/17 09:00 Potassium Phosphate 30 mmol/ Sodium Chloride 260 ml @ 42 mls/hr UNSCH PRN IV 11/29/17 09:00 Sodium Chloride 1,000 ml @ 84 mls/hr [id number] IV 11/30/17 07:45 Vital Signs / I&O Vital Signs Date Time Temp Pulse Resp B/P (MAP) Pulse Ox O2 Delivery O2 Flow Rate FiO2 11/30/17 03:00 98.3 116 12 90/56 (67) 97 11/30/17 03:00 97 Nasal Cannula 3.00 Humidified 11/30/17 03:00 116 11/29/17 23:00 113 11/29/17 23:00 96 Nasal Cannula 2.00 11/29/17 23:00 98.2 113 12 103/58 (73) 96 11/29/17 19:44 97 Nasal Cannula 2.00 11/29/17 19:00 98 Nasal Cannula 2.00 11/29/17 19:00 98.3 124 12 101/58 (72) 98 11/29/17 19:00 124 11/29/17 16:28 115 92/55 11/29/17 15:00 116 11/29/17 15:00 96 Nasal Cannula 2.00 11/29/17 15:00 98.2 121 16 86/58 (67) 94 11/29/17 11:00 98.3 121 15 90/53 (65) 94 11/29/17 11:00 117 11/29/17 11:00 94 Nasal Cannula 2.00 11/29/17 09:39 97 Nasal Cannula 2.00 I/O 11/29/17 11/29/17 11/29/17 11/30/17 11/30/17 11/30/17 07:00 15:00 23:00 07:00 15:00 23:00 Intake Total 485 ml 380 ml 480 ml Output Total 550 ml 590 ml 350 ml Balance -65 ml -210 ml 130 ml Intake Oral 240 ml 200 ml 480 ml IV Total 245 ml 180 ml Output Urine Total 550 ml 590 ml 350 ml # Bowel Movements 1 1 1 1 Physical Exam Lungs essentially clear +1 pedal edema weight down 3 lbs. Laboratory Laboratory Tests Test 11/29/17 09:52 11/29/17 14:15 11/30/17 04:35 Nasal Screen MRSA (PCR) NEGATIVE Staphylococcus aureus (PCR)(LAB) NEGATIVE White Blood Count 6.9 TH/MM3 Red Blood Count 3.28 MIL/MM3 Hemoglobin 9.9 GM/DL Hematocrit 30.2 % Mean Corpuscular Volume 92.1 FL Mean Corpuscular Hemoglobin 30.3 PG Mean Corpuscular Hemoglobin Concent 32.9 % Red Cell Distribution Width 17.8 % Platelet Count 47 TH/MM3 Mean Platelet Volume 10.4 FL Prothrombin Time 15.6 SEC Prothromb Time International Ratio 1.5 RATIO Activated Partial Thromboplast Time 35.7 SEC Blood Urea Nitrogen 34 MG/DL Creatinine 1.68 MG/DL Random Glucose 75 MG/DL Total Protein 6.1 GM/DL Albumin 3.8 GM/DL Calcium Level 8.5 MG/DL Phosphorus Level 2.4 MG/DL Alkaline Phosphatase 72 U/L Aspartate Amino Transf (AST/SGOT) 70 U/L Alanine Aminotransferase (ALT/SGPT) 30 U/L Total Bilirubin 1.2 MG/DL Sodium Level 139 MEQ/L Potassium Level 3.3 MEQ/L Chloride Level 97 MEQ/L Carbon Dioxide Level 29.6 MEQ/L Anion Gap 12 MEQ/L Estimat Glomerular Filtration Rate 30 ML/MIN Lactic Acid Level 3.5 mmol/L Assessment and Plan Problem List: (1) CHF exacerbation ICD Codes: I50.9 - Heart failure, unspecified Status: Acute Assessment and Plan Will try administering fluids to improve creatinine. Would consider left heart cath once renal function improved. Still feel the patient is dehydrated. Continue milrinone for now. Problem Qualifiers (1) CHF exacerbation: Qualified Codes: I50.9 - Heart failure, unspecified Mauricio Luna MD Nov 30, 2017 07:41
[2017-11-30] MEDS ORDERED: SODIUM CHLOR 0.9% 1000 ML INJ 1,000 ML IV SCH (07:45)
[2017-11-30] MEDS: POTASSIUM CHLORIDE 20 MEQ PWD PACKET PO SCH ×3 (09:00→17:47)
[2017-11-30] MEDS: SODIUM CHLORIDE 0.9% FLUSH 10 ML FLUSH IV FLUSH SCH ×2 (09:00→21:00)
[2017-11-30] MEDS: ASPIRIN 81 MG CHEW TAB CHEW SCH (09:05)
--- NOTE | 2017-11-30 09:28 | HHI.CCPN ---
Subjective Remarks/Hospital Course Hospital Course: 72-year-old female with a medical history significant for CHF, cardiomyopathy who was admitted initially at [facility] from November 08 And subsequently discharged. She has been very weak since her discharge and has had diarrhea for several months. She has also had nausea and poor appetite as well as long-standing shortness of breath. She presented back on November 23, 2017 to [facility] ER with generalized weakness as well as some shortness of breath. She had significant edema in her lower extremities. She was reportedly admitted with a sepsis at [facility] in October 2017 and CHF. Her LVEF is noted to be 20%. During previous hospitalization she was treated with IV antibiotics and pressors. She was also treated with antibiotics at that time. [facility] and was evaluated by cardiology. She was initiated on diuretics, IV albumin as well as milrinone gtt. Initially she received Rocephin and Flagyl which was subsequently stopped. Milrinone gtt. was titrated off at 12 noon on 11/27. Patient developed worsening shortness of breath and some altered mental status and abdominal pain subsequently. She remained on 2 L nasal cannula however was slightly tachypneic. ABG was done for further evaluation around 6 PM which revealed severe metabolic acidosis with pH 7.16, PCO2 18, PO2 98 and bicarbonate 6. Critical care was consulted on 11/27 around 6:[address] Barbour was contacted by [employer] N ordered 5 amps of sodium bicarbonate IV push. Patient's milrinone was resumed at 0.5 mics per KG per minute. I evaluated the patient after being notified of the consult and ordered stat labs and chest x-ray. When I evaluated the patient she was encephalopathic/lethargic with tachypnea. She had just received 5 A of sodium bicarbonate IV push. Stat labs are pending. Subjective: 11/28: remains in distress. lactate still elevated, and although clearing, very slowly. delayed clearance suggestive of higher mortality rate. poor urine output despite increasing doses of aggressive diuresis. had long discussion with patient, and she states she knows her heart is failing. had discussion with Dr. Barbour, and we both agree patient will need left and right heart caths in the AM and get objective evidence of PVR, PCWP and cardiac filling and output. she may need dialysis in order to offload intravascular volume from right heart failure. 11/29: uop improved from overnight, now 50-60cc/hr. remains on lasix drip. NPO for possible LHC/RHC. Cr remains elevated, but stable: likely ARISTIDES from ATN from poor perfusion 48h ago. patient subjectively feels improved and complaining of less fatigue and sob. 11/30: Remains critically ill, MAP 60-61. Creat 1.68. Getting fluids per Dr. Luna in attempt to improve creat for Cath. WIll place central line ofr pressor/inotrope infusion and also CVP monitoring. UO 940 ml in 24 hours Objective Vital Signs Date Time Temp Pulse Resp B/P (MAP) Pulse Ox O2 Delivery O2 Flow Rate FiO2 11/30/17 03:00 98.3 116 12 90/56 (67) 97 11/30/17 03:00 Nasal Cannula 3.00 Humidified 11/27/17 07:55 21 Intake and Output 11/30/17 11/30/17 12/01/17 08:00 16:00 00:00 Intake Total 480 ml Output Total 350 ml Balance 130 ml Result Diagram: 11/30/17 0435 11/30/17 0435 Objective Remarks HEENT/Neuro: No pallor or icterus, tongue moist, REESE, awake and alert. Neck: JVD above the level of the mandible. Chest/pulmonary: unlabored. remains on nc o2. Diminished breath sounds at the bases Cardiovascular: Tachycardic with heart rate 110s, sinus by tele. No murmurs. Remains on milrinone 0.5 mcg/kg/min GI/abdomen: Soft, mildly tender to palpation diffusely. no guarding Extremities: Warm bilaterally, bilateral edema A/P Assessment and Plan Assessment: 72yF with biventricular failure, severe. was in cardiogenic shock when milrinone was weaned. now with persistently elevated lactate, although improving. and remains on milrinone therapy. still clinically appears volume overloaded, and likely more RV failure with cor pulmonale, but LV failure canot be ruled out now with bilateral pleural effusions.D/W Dr. Maxwell, he agrees on RHC. Hold off LHC for now- may not be a candidate surgical treatment if needed. for Active problems: Severe biventricular failure Cor pulmonale Cardiogenic shock Acute hypoxic respiratory failure - improving Bilateral pleural effusion Congestive hepatopathy - improving. Acute kidney injury secondary to cardiogenic shock Severe pulmonary hypertension Nonischemic cardiomyopathy with LVEF 20% Metabolic acidosis: Suspect low flow state causing lactic acidosis with probable bowel ischemia Diarrhea - improving. Abdominal pain Tachycardia Thrombocytopenia Plan: D/W Dr. Luna. Plan for PAC placement for PCWP, indirect LVEDP, CO/CI and to guide Therapy accordingly All diuretics held by Dr. Luna, and patient placed on IVF 84 ml per hour I haver discussed with Dr. Luna that patient has clinical evidence of BiV failure (bilateral pl effusion, JVD, wt gain, BNP>5000) Best option to assess fluid status and guide therapy is RHC in this patient milrinone at 0.5 mcg/kg/hr serial LFTs, BMP, CBC trend lactates, remains elevated watch uop requires hough wean o2 by nc for goal spo2 > 92% Lomotil for diarrhea: likely this is from ischemia, but patient says it gives her symptomatic relief, and she specifically requests it. HIT panel pending Remain in ICU. critically ill. off pathway. Plan for RHC after transfusing 2U platelets CCT 35 MIN Anuja Shukla MD Nov 30, 2017 09:28
--- NOTE | 2017-11-30 10:42 | RADRPT ---
EXAM DATE/TIME: 11/30/2017 09:36 [facility] COMPARISON: CHEST SINGLE AP, November 23, 2017, 19:39. CHEST SINGLE AP, November 28, 2017, 7:29. INDICATIONS : Short of breath. MEDICAL HISTORY : Hypertension. Hernia, hiatal. Gastroesophageal reflux disease.IBS. SURGICAL HISTORY : Cholecystectomy. Bilateral hip replacements. ENCOUNTER: Subsequent ACUITY: 4 - 6 days PAIN SCORE: 0/10 LOCATION: Bilateral chest FINDINGS: Portable AP view of the chest demonstrate stable mild enlargement of the cardiac silhouette. There ar e persistent bibasilar pleural-parenchymal opacities, right greater than left. These are stable from the study from 2 days ago. No pneumothorax is visualized. Bones and soft tissues demonstrate no acute finding. CONCLUSION: 1. Stable chest x-ray with bibasilar opacities likely representing pleural effusions with associated volume loss and/or air space consolidation. 2. Stable mild enlargement of the cardiac silhouette. Vazquez Andino MD on November 30, 2017 at 10:32 Board Certified Radiologist. This report was verified electronically.
[2017-11-30] MEDS ORDERED: LORazepam 2 MG/ML VIAL IV PUSH ONE (13:00)
--- NOTE | 2017-11-30 14:14 | PD.PROCEDR ---
Central Line Procedure REASON FOR PROCEDURE Central venous access PROCEDURE PERFORMED Central line placement: RIJ introducer placement with US CONSENT Informed consent for procedure was obtained and time out performed. The risks and benefits of the procedure were discussed to include but limited to bleeding , clot formation, infection, and even . ANESTHESIA Local injection of 1% Lidocaine DESCRIPTION OF THE PROCEDURE The patient was placed in supine, mild Trendelenburg position. The area was exposed and cleansed with ChloraPrep, times two. Large sterile drape was used to cover the patient, with the site exposed, under sterile conditions including cap, face mask, sterile gown, and sterile gloves. On single attempt, the introducer needle was inserted with negative pressure in syringe and venous flash was obtained. The guide wire was then advanced without any restriction and the needle was removed. The dilator was used without any complications. Using Seldinger technique the introducer catheter was advanced over the guide wire and the guide wire was removed. All ports were aspirated with dark venous blood return and flushed easily with sterile saline. All ports were capped. Antibiotic disc was placed around central line at puncture site. The central line was secured to the skin with two interrupted 2.0 silk sutures. The area was bandaged with sterile see-through central line bandage. RADIOLOGICAL DATA Ultrasound guidance was used to locate RIJ. Doppler/color flow was used to confirm venous flow. COMPLICATIONS: No apparent complications ESTIMATED BLOOD LOSS: Less than 1 cc. Anuja Shukla MD Nov 30, 2017 14:13
[2017-11-30 14:17] LABS: HEPARIN INDUCED PLATELET AB NEGATIVE (NEGATIVE)
--- NOTE | 2017-11-30 14:20 | PD.PROCEDR ---
Procedure Note Procedure Orleans-Alexis Catheter Placement Indication: Hemodynamic monitoring/PCWP/LVEDP/CI measurement A time-out was completed verifying correct patient, procedure, site, positioning , and special equipment if applicable. The patient was placed in a dependent position appropriate for central line placement based on the vein already cannulated with a 9F Cordis catheter. The patients right neck was already prepped and draped in sterile fashion. A triple lumen continuous cardiac output Orleans-Alexis catheter was brought onto the field and each line flushed with sterile saline and the SVO2 sensor calibrated. The catheter was introduced into the Cordis catheter to a distance of 17 cm. The balloon was then inflated and the catheter was advanced through the right ventricle with RV pressure reading 40-45/17-20. After multiple attempts by myself and Dr. Madden, we were not able to get catheter into PAC. The catheter was locked to the Cordis with the tip inserted to a distance of 45 cm and a sterile dressing applied. Dr. Luna will attempt to float under Fluoro in am Estimated Blood Loss: None for PA catheter The patient tolerated the procedure well and there were no complications. Anuja Shukla MD Nov 30, 2017 14:20
--- NOTE | 2017-11-30 14:47 | RADRPT ---
EXAM DATE/TIME: 11/30/2017 14:16 [facility] COMPARISON: CHEST SINGLE AP, November 30, 2017, 9:36. INDICATIONS : Evaluate swan-santiago cathter placement MEDICAL HISTORY : Hypertension. Hernia, hiatal. Gastroesophageal reflux disease.IBS. SURGICAL HISTORY : Cholecystectomy. Bilateral hip replacements. ENCOUNTER: Subsequent ACUITY: 4 - 6 days PAIN SCORE: Non-responsive. LOCATION: Bilateral chest FINDINGS: Again noted is calcification in the aortic knob and cardiomegaly compensated with bilateral pulmonary opacities stable left base and persistent on the right which portion of which is pleural effusion. There is placement of a right jugular catheter which appears to terminate a t the level of the right atrium with no evidence of pneumothorax CONCLUSION: Placement of right jugular catheter terminating at the level of the right atrium with no evidence of complication such as pneumothorax. Otherwise stable chest Gerardo Ma MD on November 30, 2017 at 14:42 Board Certified Radiologist. This report was verified electronically.
[2017-11-30] MEDS: MILRINONE INJ 20 MG in SODIUM CHLORIDE 0.9% INJ 80 ML IV SCH (16:14)
--- NOTE | 2017-11-30 16:47 | HHI.HCPN ---
Reason for visit a. To assist with evaluation and management of symptoms including: Dyspnea b. To assist medical decision maker(s) with: better understanding of current medical conditions; weighing benefits/burdens of medical treatment options; making medical treatment decisions. . Subjective/Interval History INTERVAL NOTE: The patient reports her breathing seems better, but she remains quite weak. No troublesome pain. Creatinine remains essentially unchanged. Cardiac monitoring line placement attempted today. Chest x-ray with basilar atelectasis. . Advance Directives Living Will: Copy in medical record Health Care Surrogate: Copy in medical record Durable Power of Feather Edger: Never completed Advance Directive Specifics Health Care Surrogate(s): Primary healthcare surrogate his son Fermin, secondary is son Noel . Documented care wishes: The patient has a living will . Objective Vital Signs Date Time Temp Pulse Resp B/P (MAP) Pulse Ox O2 Delivery O2 Flow Rate FiO2 11/30/17 16:14 109 117/63 11/30/17 15:23 112 25 98/60 90 11/30/17 15:03 119 20 103/73 94 11/30/17 15:00 94 Nasal Cannula 4.00 Humidified 11/30/17 15:00 98.8 119 18 103/73 (83) 94 11/30/17 15:00 119 11/30/17 14:43 98.6 118 20 87/58 93 11/30/17 13:30 125 100/65 (77) 11/30/17 12:35 98.4 120 20 90/64 97 11/30/17 12:20 97.7 115 20 98/43 97 11/30/17 12:04 98.6 117 20 76/64 99 11/30/17 12:00 131 11/30/17 11:00 98.6 122 20 86/57 (67) 99 11/30/17 11:00 99 Nasal Cannula 2.00 Humidified 11/30/17 09:36 96 Nasal Cannula 4.00 11/30/17 07:00 97 Nasal Cannula 4.00 Humidified 11/30/17 07:00 109 11/30/17 07:00 97.9 109 20 87/55 (66) 97 11/30/17 03:00 98.3 116 12 90/56 (67) 97 11/30/17 03:00 97 Nasal Cannula 3.00 Humidified 11/30/17 03:00 116 11/29/17 23:00 113 11/29/17 23:00 96 Nasal Cannula 2.00 11/29/17 23:00 98.2 113 12 103/58 (73) 96 11/29/17 19:44 97 Nasal Cannula 2.00 11/29/17 19:00 98 Nasal Cannula 2.00 11/29/17 19:00 98.3 124 12 101/58 (72) 98 11/29/17 19:00 124 Intake & Output 11/30/17 11/30/17 07:00 19:00 Intake Total 480 ml 469 ml Output Total 350 ml Balance 130 ml 469 ml Intake Oral 480 ml Platelets 469 ml Output Urine Total 350 ml # Bowel Movements 1 Physical Exam CONSTITUTIONAL/GENERAL: This is a weak patient, in no apparent distress. TUBES/LINES/DRAINS: Nasal O2, IV access, Vazquez SKIN: No jaundice, rashes, or lesions. Ecchymoses on upper extremities. No wounds seen anteriorly. Skin temperature appropriate. Not diaphoretic. ENT: Hearing grossly normal. Nose without bleeding or purulent drainage. NECK: Trachea midline. Supple, nontender. No palpable thyroid enlargement or nodularity. CARDIOVASCULAR: Regular rate and rhythm with grade 1 systolic murmur. RESPIRATORY/CHEST: Symmetric, unlabored respirations. Breath sounds equal bilaterally. Some scattered rales GASTROINTESTINAL: Abdomen soft, non-tender, nondistended. No hepato-splenomegaly , or palpable masses. No guarding. Bowel sounds present. GENITOURINARY: Without palpable bladder distension. Vazquez catheter is present NEUROLOGICAL: Awake and alert. Motor and sensory grossly within normal limits. Follows commands. Cognitively sharp. Moves all extremities. PSYCHIATRIC: No obvious anxiety/depression. no apparent hallucinations or other psychotic thought process. . Diagnostic Tests Laboratory Laboratory Tests Test 11/27/17 18:00 11/27/17 19:53 11/27/17 20:18 11/27/17 20:30 Blood Gas Puncture Site LT RADIAL LT RADIAL Blood Gas Patient Temperature 98.6 98.6 Blood Gas HCO3 6 mmol/L (22-26) 13 mmol/L (22-26) Blood Gas Base Excess -20.8 mmol/L (-2-2) -11.2 mmol/L (-2-2) Blood Gas Oxygen Saturation 92 % (90-100) 93 % (90-100) Arterial Blood pH 7.16 (7.380-7.420) 7.40 (7.380-7.420) Arterial Blood Partial Pressure CO2 18 mmHg (38-42) 21 mmHg (38-42) Arterial Blood Partial Pressure O2 98 mmHg (61-120) 83 mmHg (61-120) Arterial Blood Oxygen Content 16.0 Vol % (12.0-20.0) 15.4 Vol % (12.0-20.0) Arterial Blood Carboxyhemoglobin 0.5 % (0-4) 1.1 % (0-4) Arterial Blood Methemoglobin 1.2 % (0-2) 1.0 % (0-2) Blood Gas Hemoglobin 12.2 G/DL (12.0-16.0) 11.7 G/DL (12.0-16.0) Oxygen Delivery Device NASAL CANNULA SM Blood Gas Liter Flow 2 L/M 5 L/M Blood Urea Nitrogen 28 MG/DL (7-18) Creatinine 1.61 MG/DL (0.50-1.00) Random Glucose 76 MG/DL (74-106) Total Protein 7.5 GM/DL (6.4-8.2) Albumin 4.7 GM/DL (3.4-5.0) Calcium Level 8.8 MG/DL (8.5-10.1) Phosphorus Level 2.5 MG/DL (2.5-4.9) Magnesium Level 2.2 MG/DL (1.5-2.5) Alkaline Phosphatase 90 U/L (45-117) Aspartate Amino Transf (AST/SGOT) 130 U/L (15-37) Alanine Aminotransferase (ALT/SGPT) 25 U/L (10-53) Total Bilirubin 3.3 MG/DL (0.2-1.0) Sodium Level 140 MEQ/L (136-145) Potassium Level 5.7 MEQ/L (3.5-5.1) Chloride Level 101 MEQ/L (98-107) Carbon Dioxide Level 12.0 MEQ/L (21.0-32.0) Anion Gap 27 MEQ/L (5-15) Estimat Glomerular Filtration Rate 32 ML/MIN (>89) White Blood Count 10.1 TH/MM3 (4.0-11.0) Red Blood Count 4.11 MIL/MM3 (4.00-5.30) Hemoglobin 12.3 GM/DL (11.6-15.3) Hematocrit 37.8 % (35.0-46.0) Mean Corpuscular Volume 91.8 FL (80.0-100.0) Mean Corpuscular Hemoglobin 29.9 PG (27.0-34.0) Mean Corpuscular Hemoglobin Concent 32.6 % (32.0-36.0) Red Cell Distribution Width 18.0 % (11.6-17.2) Platelet Count 84 TH/MM3 (150-450) Mean Platelet Volume 9.7 FL (7.0-11.0) Neutrophils (%) (Auto) 83.6 % (16.0-70.0) Lymphocytes (%) (Auto) 9.4 % (9.0-44.0) Monocytes (%) (Auto) 6.8 % (0.0-8.0) Eosinophils (%) (Auto) 0.0 % (0.0-4.0) Basophils (%) (Auto) 0.2 % (0.0-2.0) Neutrophils # (Auto) 8.5 TH/MM3 (1.8-7.7) Lymphocytes # (Auto) 0.9 TH/MM3 (1.0-4.8) Monocytes # (Auto) 0.7 TH/MM3 (0-0.9) Eosinophils # (Auto) 0.0 TH/MM3 (0-0.4) Basophils # (Auto) 0.0 TH/MM3 (0-0.2) CBC Comment AUTO DIFF Differential Comment AUTO DIFF CONFIRMED Prothrombin Time 19.5 SEC (9.8-11.6) Prothromb Time International Ratio 1.9 RATIO Activated Partial Thromboplast Time 38.3 SEC (24.3-30.1) Lactic Acid Level 17.6 mmol/L (0.4-2.0) B-Type Natriuretic Peptide GREATER THAN 5000 PG/ML Test 11/28/17 02:45 11/28/17 03:55 11/28/17 04:29 11/29/17 04:23 Stool C. difficile Toxin (PCR) NEGATIVE (NEGATIVE) Stl C. difficile Toxin Epiderm 027 PRESUMPTIVE NEGATIVE White Blood Count 8.5 TH/MM3 (4.0-11.0) 7.2 TH/MM3 (4.0-11.0) Red Blood Count 3.30 MIL/MM3 (4.00-5.30) 3.41 MIL/MM3 (4.00-5.30) Hemoglobin 9.9 GM/DL (11.6-15.3) 10.5 GM/DL (11.6-15.3) Hematocrit 29.5 % (35.0-46.0) 31.0 % (35.0-46.0) Mean Corpuscular Volume 89.4 FL (80.0-100.0) 90.7 FL (80.0-100.0) Mean Corpuscular Hemoglobin 30.0 PG (27.0-34.0) 30.7 PG (27.0-34.0) Mean Corpuscular Hemoglobin Concent 33.5 % (32.0-36.0) 33.9 % (32.0-36.0) Red Cell Distribution Width 17.7 % (11.6-17.2) 17.9 % (11.6-17.2) Platelet Count 67 TH/MM3 (150-450) 52 TH/MM3 (150-450) Mean Platelet Volume 9.5 FL (7.0-11.0) 10.1 FL (7.0-11.0) Neutrophils (%) (Auto) 82.0 % (16.0-70.0) Lymphocytes (%) (Auto) 11.5 % (9.0-44.0) Monocytes (%) (Auto) 6.3 % (0.0-8.0) Eosinophils (%) (Auto) 0.0 % (0.0-4.0) Basophils (%) (Auto) 0.2 % (0.0-2.0) Neutrophils # (Auto) 7.0 TH/MM3 (1.8-7.7) Lymphocytes # (Auto) 1.0 TH/MM3 (1.0-4.8) Monocytes # (Auto) 0.5 TH/MM3 (0-0.9) Eosinophils # (Auto) 0.0 TH/MM3 (0-0.4) Basophils # (Auto) 0.0 TH/MM3 (0-0.2) CBC Comment AUTO DIFF Differential Comment AUTO DIFF CONFIRMED Platelet Estimate LOW (NORMAL) Platelet Morphology Comment NORMAL (NORMAL) Target Cells 1+ (NORMAL) Blood Urea Nitrogen 29 MG/DL (7-18) 31 MG/DL (7-18) Creatinine 1.76 MG/DL (0.50-1.00) 1.67 MG/DL (0.50-1.00) Random Glucose 112 MG/DL (74-106) 85 MG/DL (74-106) Total Protein 6.1 GM/DL (6.4-8.2) 6.3 GM/DL (6.4-8.2) Albumin 3.9 GM/DL (3.4-5.0) 4.1 GM/DL (3.4-5.0) Calcium Level 8.1 MG/DL (8.5-10.1) 8.6 MG/DL (8.5-10.1) Phosphorus Level 1.8 MG/DL (2.5-4.9) 1.5 MG/DL (2.5-4.9) Magnesium Level 1.8 MG/DL (1.5-2.5) 1.7 MG/DL (1.5-2.5) Alkaline Phosphatase 65 U/L (45-117) 64 U/L (45-117) Aspartate Amino Transf (AST/SGOT) 171 U/L (15-37) 93 U/L (15-37) Alanine Aminotransferase (ALT/SGPT) 35 U/L (10-53) 32 U/L (10-53) Total Bilirubin 1.7 MG/DL (0.2-1.0) 1.7 MG/DL (0.2-1.0) Sodium Level 143 MEQ/L (136-145) 141 MEQ/L (136-145) Potassium Level 4.7 MEQ/L (3.5-5.1) 3.6 MEQ/L (3.5-5.1) Chloride Level 102 MEQ/L (98-107) 97 MEQ/L (98-107) Carbon Dioxide Level 22.7 MEQ/L (21.0-32.0) 30.0 MEQ/L (21.0-32.0) Anion Gap 18 MEQ/L (5-15) 14 MEQ/L (5-15) Estimat Glomerular Filtration Rate 28 ML/MIN (>89) 30 ML/MIN (>89) Lactic Acid Level 11.8 mmol/L (0.4-2.0) 3.5 mmol/L (0.4-2.0) B-Type Natriuretic Peptide GREATER THAN 5000 PG/ML Blood Gas Puncture Site LT RADIAL Blood Gas Patient Temperature 98.6 Blood Gas HCO3 22 mmol/L (22-26) Blood Gas Base Excess -0.7 mmol/L (-2-2) Blood Gas Oxygen Saturation 84 % (90-100) Arterial Blood pH 7.49 (7.380-7.420) Arterial Blood Partial Pressure CO2 29 mmHg (38-42) Arterial Blood Partial Pressure O2 51 mmHg (61-120) Arterial Blood Oxygen Content 11.6 Vol % (12.0-20.0) Arterial Blood Carboxyhemoglobin 1.4 % (0-4) Arterial Blood Methemoglobin 1.2 % (0-2) Blood Gas Hemoglobin 9.8 G/DL (12.0-16.0) Oxygen Delivery Device NASAL CANNULA Blood Gas Liter Flow 2 L/M Prothrombin Time 16.1 SEC (9.8-11.6) Prothromb Time International Ratio 1.6 RATIO Activated Partial Thromboplast Time 46.4 SEC (24.3-30.1) Digoxin Level 1.6 NG/ML (0.8-2.0) Test 11/29/17 09:52 11/29/17 14:15 11/30/17 04:35 Heparin-Induced Platelet Ab (Shruti) NEGATIVE (NEGATIVE) HIPA Patient Optical Density 0.125 O.D. (0.000-0.300) Nasal Screen MRSA (PCR) NEGATIVE (NEGATIVE) Staphylococcus aureus (PCR)(LAB) NEGATIVE (NEGATIVE) White Blood Count 6.9 TH/MM3 (4.0-11.0) Red Blood Count 3.28 MIL/MM3 (4.00-5.30) Hemoglobin 9.9 GM/DL (11.6-15.3) Hematocrit 30.2 % (35.0-46.0) Mean Corpuscular Volume 92.1 FL (80.0-100.0) Mean Corpuscular Hemoglobin 30.3 PG (27.0-34.0) Mean Corpuscular Hemoglobin Concent 32.9 % (32.0-36.0) Red Cell Distribution Width 17.8 % (11.6-17.2) Platelet Count 47 TH/MM3 (150-450) Mean Platelet Volume 10.4 FL (7.0-11.0) Prothrombin Time 15.6 SEC (9.8-11.6) Prothromb Time International Ratio 1.5 RATIO Activated Partial Thromboplast Time 35.7 SEC (24.3-30.1) Blood Urea Nitrogen 34 MG/DL (7-18) Creatinine 1.68 MG/DL (0.50-1.00) Random Glucose 75 MG/DL (74-106) Total Protein 6.1 GM/DL (6.4-8.2) Albumin 3.8 GM/DL (3.4-5.0) Calcium Level 8.5 MG/DL (8.5-10.1) Phosphorus Level 2.4 MG/DL (2.5-4.9) Alkaline Phosphatase 72 U/L (45-117) Aspartate Amino Transf (AST/SGOT) 70 U/L (15-37) Alanine Aminotransferase (ALT/SGPT) 30 U/L (10-53) Total Bilirubin 1.2 MG/DL (0.2-1.0) Sodium Level 139 MEQ/L (136-145) Potassium Level 3.3 MEQ/L (3.5-5.1) Chloride Level 97 MEQ/L (98-107) Carbon Dioxide Level 29.6 MEQ/L (21.0-32.0) Anion Gap 12 MEQ/L (5-15) Estimat Glomerular Filtration Rate 30 ML/MIN (>89) Lactic Acid Level 3.5 mmol/L (0.4-2.0) B-Type Natriuretic Peptide GREATER THAN 5000 PG/ML Result Diagram: 11/30/17 0435 11/30/17 0435 Imaging Last Impressions Chest X-Ray 11/30/17 0000 Signed Impressions: Service Date/Time: Thursday, November 30, 2017 14:16 - CONCLUSION: Placement of right jugular catheter terminating at the level of the right atrium with no evidence of complication such as pneumothorax. Otherwise stable chest Gerardo Ma MD Abdomen/Pelvis CT 11/23/17 0000 Signed Impressions: Service Date/Time: Thursday, November 23, 2017 21:30 - CONCLUSION: 1. No obstruction or acute inflammatory changes are seen in the abdomen or pelvis. 2. Apparent complex cystic and solid mass of the mid zone of the right kidney. A followup MRI of the abdomen is recommended with and without contrast in approximately 3 months. This may be helpful in further characterizing a small, probably benign but nonspecific hypodensity of the liver. 3. Nonspecific right greater than left pleural effusions and basilar atelectasis. There is an area of nonenhancing right lower lobe pulmonary parenchyma compatible with pneumonia. Infection and post obstructive process would be in the differential. After treatment for presumed pneumonia, a followup CT of the chest, preferably with intravenous contrast, is recommended within the next couple of months, sooner if felt clinically indicated. 4. Also a nonspecific moderate size pericardial effusion. Vazquez Perdue MD Assessment and Plan Disease Oriented Problem List: (1) cardiomyopathy (2) congestive failure with pronounced right side failure symptoms (3) low flow state, with some hepatic, renal, and GI effects (4) CHF, first diagnosed August 2017 (5) right kidney cyst on CT scan, possibly complex (6) colitis, possible ischemic (7) GERD (8) history of hypertension (9) history of hyperthyroid (10) peripheral neuropathy (11) history of B12 deficiency (12) history of avascular necrosis left hip 2002 Symptom Scale: (1) dyspnea 0-10 Scale: 1 (2) weakness 0-10 Scale: 6 Pertinent Non-Medical Issues Psychosocial: , 3 sons living locally, 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 Legal: The patient has capacity for decision-making. She has designated her sons Fermin and Noel as primary and secondary HCS respectively. Ethical issues impacting care: None . Important Contacts Son: Fermin Bernard [phone] Son: Noel Bernard [phone] . Prognosis Overall, her prognosis is quite guarded. She has significant cardiomyopathy with low flow state. She will be appropriate for hospice services if the upcoming studies confirm end-stage disease, and if the goals become solely comfort oriented. . Code Status: Full Code Plan * FULL CODE * DECISION-MAKING: The patient has capacity for decision-making. She has designated her sons Fermin and Noel as primary and secondary HCS respectively. * GOALS: There has been discussion about possible placement of an AICD, and the patient would want that. She is willing to undergo heart cath to see if that may also help in effective treatment. If her kidneys were to fail, she would want additional discussion prior to considering dialysis. If she suffers cardiac arrest and is on a ventilator, she reports she would not want to be kept on life support "very long if I really wasn't going to get much better." She is open to hospice services if her disease processes or complications seen to be progressing or if additional complications confirm that she is end-stage. * SYMPTOMS: The patient's dyspnea has improved over the past days as the urine output has increased and the edema has subsided. She has no pain. I have no additional medication recommendations at this time. * It is likely she will have additional investigative procedures, and further discussions regarding prognosis and goals will be undertaken as that information becomes more clear. * Palliative Care will continue to follow the patient during this hospitalization. . Time Spent Total Floor Time (mins): 29 Face to Face Time (mins): 16 >50% Counseling/Coord of Care: Yes Attestation To help prompt me to consider important information that might be impacting today's encounter and assessment, information from prior notes written by myself or my colleagues may have been "brought forward" into today's note. My signature on this note, however, is an attestation that I personally performed the exam, history, and/or decision-making noted today, and, unless otherwise indicated, the interactions with patient, family, and staff as well as the review of records all occurred today. I also attest that the listed assessment and stated plan reflect my best clinical judgment today based on the combination of historical information, prior notes, and today's exam/ interactions. When time spent is documented, it refers only to time spent today by the signer, or if indicated, combined time spent today by collaborating physician/nurse practitioner. Evelyn Desir MD Nov 30, 2017 16:47
--- NOTE | 2017-11-30 16:51 | RADRPT ---
EXAM DATE/TIME: 11/30/2017 16:14 [facility] COMPARISON: CHEST SINGLE AP, November 30, 2017, 14:16. INDICATIONS : PA Catheter repostioning. MEDICAL HISTORY : Hypertension. Hernia, hiatal. Gastroesophageal reflux disease.IBS. SURGICAL HISTORY : Cholecystectomy. ENCOUNTER: Subsequent ACUITY: 3 days PAIN SCORE: Non-responsive. LOCATION: Bilateral chest FINDINGS: Repositioning of the right catheter is appreciated which curls in the anterior chest to the left a nd most likely terminates in the right ventricle. Chest is otherwise stable. CONCLUSION: Repositioning right jugular catheter now having appearance of terminating the left of midline in the right ventricle. Gerardo Ma MD on November 30, 2017 at 16:47 Board Certified Radiologist. This report was verified electronically.
--- NOTE | 2017-11-30 16:52 | RADRPT ---
EXAM DATE/TIME: 11/30/2017 16:26 [facility] COMPARISON: No previous studies available for comparison. INDICATIONS : PAC advancement. MEDICAL HISTORY : Hypertension. Hernia, hiatal. Gastroesophageal reflux disease.IBS. SURGICAL HISTORY : Cholecystectomy. ENCOUNTER: Subsequent ACUITY: 2 days PAIN SCORE: 10/10 LOCATION: Bilateral chest FINDINGS: Right tibia catheter reposition now appearing to progress out of the right ventricle probably into th e main pulmonary artery. CONCLUSION: Reposition a right jugular venous catheter terminal position in the main pulmonary artery Gerardo Ma MD on November 30, 2017 at 16:48 Board Certified Radiologist. This report was verified electronically.
[2017-11-30] MEDS ORDERED: ALBUMIN 25% INJ 100 ML IV ONE (18:45)
--- NOTE | 2017-11-30 19:02 | RADRPT ---
EXAM DATE/TIME: 11/30/2017 18:34 [facility] COMPARISON: CHEST SINGLE AP, November 30, 2017, 16:26. INDICATIONS : PA reposition placement. MEDICAL HISTORY : Hypertension. Hernia, hiatal. Gastroesophageal reflux disease.IBS. SURGICAL HISTORY : Cholecystectomy. ENCOUNTER: Subsequent ACUITY: 2 days PAIN SCORE: 0/10 LOCATION: Bilateral chest FINDINGS: A single portable frontal view the chest shows no significant change. Bilateral pleural effusions and bibasilar pulmonary consolidations. The right is worse than the left. The tip of the [place]-Alexis danielito ter projects in the region of the interlobar pulmonary artery on the right. No pneumothorax. Loculate d effusion involving the right apex. Heart is mildly enlarged. Bony structures are unremarkable. CONCLUSION: 1. Tip of the [place]-Alexis catheter in the region of the interlobar pulmonary artery on the right. 2. Unchanged bilateral pleural effusions and bilateral pulmonary infiltrates. Eladio Mcgowan Jr., MD on November 30, 2017 at 18:57 Board Certified Radiologist. This report was verified electronically.
[2017-11-30] MEDS: PANTOPRAZOLE SODIUM 40 MG VIAL IV PUSH SCH (20:00)
[2017-12-01] VITALS (14 sets, daily range): BP systolic 83–111; BP diastolic 49–66; PULSE 108–132; RESP 15–18; TEMP 97.3–99.3; O2SAT 80–99
[2017-12-01 04:19] LABS: HEMATOCRIT 26.9 % (35.0-46.0); HEMOGLOBIN 9.1 GM/DL (11.6-15.3); MEAN CELL VOLUME 92.3 FL (80.0-100.0); MEAN CORPUSCULAR HEMOGLOBIN 31.2 PG (27.0-34.0); MEAN CORPUSCULAR HGB CONC 33.8 % (32.0-36.0); MEAN PLATELET VOLUME 8.5 FL (7.0-11.0); PLATELET COUNT 108 TH/MM3 (150-450); RED BLOOD COUNT 2.91 MIL/MM3 (4.00-5.30); RED CELL DISTRIBUTION WIDTH 16.9 % (11.6-17.2); WHITE BLOOD COUNT 5.4 TH/MM3 (4.0-11.0)
[2017-12-01 04:32] LABS: INTERNATIONAL NORMALIZED RATIO 1.4 RATIO
[2017-12-01 04:38] LABS: ALBUMIN 4.1 GM/DL (3.4-5.0); AST (GOT) 43 U/L (15-37); BICARBONATE 31.1 MEQ/L (21.0-32.0); BLOOD UREA NITROGEN 34 MG/DL (7-18); CALCIUM 8.4 MG/DL (8.5-10.1); CHLORIDE 98 MEQ/L (98-107); CREATININE 1.71 MG/DL (0.50-1.00); GLOMERULAR FILTRATION RATE 29 ML/MIN (>89); GLUCOSE,RANDOM 80 MG/DL (74-106); SODIUM (NA) 140 MEQ/L (136-145)
[2017-12-01 04:39] LABS: ALT (GPT) 24 U/L (10-53)
[2017-12-01 04:42] LABS: ALKALINE PHOSPHATASE 68 U/L (45-117); TOTAL BILIRUBIN ADULT 1.1 MG/DL (0.2-1.0); TOTAL PROTEIN 6.5 GM/DL (6.4-8.2)
[2017-12-01] MEDS: POTASSIUM CHLOR 40 MEQ PREMIX 100 ML IV PRN ×2 (05:36→13:48)
[2017-12-01] MEDS: MILRINONE INJ 20 MG in SODIUM CHLORIDE 0.9% INJ 80 ML IV SCH ×2 (05:36→13:48)
[2017-12-01] MEDS ORDERED: FUROSEMIDE 40 MG/4 ML VIAL ONE (06:29)
--- NOTE | 2017-12-01 06:57 | RADRPT ---
EXAM DATE/TIME: 12/01/2017 06:40 [facility] COMPARISON: CHEST SINGLE AP, November 30, 2017, 18:34. INDICATIONS : Shortness of breath. MEDICAL HISTORY : Hypertension. SURGICAL HISTORY : None. ENCOUNTER: Subsequent ACUITY: 3 days PAIN SCORE: Non-responsive. LOCATION: Bilateral chest FINDINGS: The heart size is normal. There is increased density seen throughout much of the right chest related to at least a moderate to large effusion. There is a [place]-Alexis catheter placed from the right interna l jugular approach with the tip overlying the right pulmonary artery. There is increased density at t he left base with silhouetting the left hemidiaphragm. The left upper and midlung are clear.. CONCLUSION: 1. Moderate to large or pleural effusion. 2. Increased density left base which silhouettes the left hemidiaphragm related to some degree of ate lectasis, consolidation, and/or mild effusion. 3. [place]-Alexis catheter in good position. Vazquez Crow MD on December 01, 2017 at 6:53 Board Certified Radiologist. This report was verified electronically.
[2017-12-01] MEDS ORDERED: TERBUTALINE INJ 1 MG/ML AMP SQ PRN ×3 (07:30→14:15)
[2017-12-01] MEDS ORDERED: FUROSEMIDE 40 MG/4 ML VIAL IV PUSH ONE (07:45)
[2017-12-01] MEDS ORDERED: ALBUMIN 25% INJ 100 ML IV ONE ×2 (07:45→13:30)
--- NOTE | 2017-12-01 07:54 | HHI.CCPN ---
Subjective Remarks/Hospital Course Hospital Course: 72-year-old female with a medical history significant for CHF, cardiomyopathy who was admitted initially at [facility] from November 08 And subsequently discharged. She has been very weak since her discharge and has had diarrhea for several months. She has also had nausea and poor appetite as well as long-standing shortness of breath. She presented back on November 23, 2017 to [facility] ER with generalized weakness as well as some shortness of breath. She had significant edema in her lower extremities. She was reportedly admitted with a sepsis at [facility] in October 2017 and CHF. Her LVEF is noted to be 20%. During previous hospitalization she was treated with IV antibiotics and pressors. She was also treated with antibiotics at that time. Patient was admitted by [facility] on November 23 and was evaluated by cardiology. She was initiated on diuretics, IV albumin as well as milrinone gtt. Initially she received Rocephin and Flagyl which was subsequently stopped. Milrinone gtt. was titrated off at 12 noon on 11/27. Patient developed worsening shortness of breath and some altered mental status and abdominal pain subsequently. She remained on 2 L nasal cannula however was slightly tachypneic. ABG was done for further evaluation around 6 PM which revealed severe metabolic acidosis with pH 7.16, PCO2 18, PO2 98 and bicarbonate 6. Critical care was consulted on 11/27 around 6:[address] Barbour was contacted by [employer] [facility] ordered 5 amps of sodium bicarbonate IV push. Patient's milrinone was resumed at 0.5 mics per KG per minute. I evaluated the patient after being notified of the consult and ordered stat labs and chest x-ray. When I evaluated the patient she was encephalopathic/lethargic with tachypnea. She had just received 5 A of sodium bicarbonate IV push. Stat labs are pending. Subjective: 11/28: remains in distress. lactate still elevated, and although clearing, very slowly. delayed clearance suggestive of higher mortality rate. poor urine output despite increasing doses of aggressive diuresis. had long discussion with patient, and she states she knows her heart is failing. had discussion with Dr. Barbour, and we both agree patient will need left and right heart caths in the AM and get objective evidence of PVR, PCWP and cardiac filling and output. she may need dialysis in order to offload intravascular volume from right heart failure. 11/29: uop improved from overnight, now 50-60cc/hr. remains on lasix drip. NPO for possible LHC/RHC. Cr remains elevated, but stable: likely ARISTIDES from ATN from poor perfusion 48h ago. patient subjectively feels improved and complaining of less fatigue and sob. 11/30: Remains critically ill, MAP 60-61. Creat 1.68. Getting fluids per Dr. Luna in attempt to improve creat for Cath. Will place central line of pressor/inotrope infusion and also CVP monitoring. UO 940 ml in 24 hours 12/01: PAC placed yesterday, PA pressures 38/29 now. Last PCWP was 36. IVF discontinue, IV Lasix 60 mg ordered. Discussed with Dr. Luna- agrees with management plan, he wants to use Dopamine at low dose. I will also start on Bumex gtt, with IV Albumin. Plan for bedside thoracentesis today Objective Vital Signs Date Time Temp Pulse Resp B/P (MAP) Pulse Ox O2 Delivery O2 Flow Rate FiO2 12/01/17 05:36 107 105/58 12/01/17 04:00 97 Nasal Cannula 4.00 12/01/17 04:00 97.3 16 11/27/17 07:55 21 Intake and Output 12/01/17 12/01/17 12/01/17 07:59 15:59 23:59 Intake Total 290 ml Output Total 123 ml Balance 167 ml Result Diagram: 12/01/17 0350 12/01/17 0350 Objective Remarks HEENT/Neuro: No pallor or icterus, tongue moist, REESE, awake and alert. ( Slightly lethargic from Ativan yesterday) Neck: RIJ introducer in place Chest/pulmonary: unlabored. remains on nc o2. Diminished breath sounds at the bases. Large right pleural effusion on ultrasound Cardiovascular: Tachycardic with heart rate 110s, sinus by tele. No murmurs. Remains on milrinone 0.5 mcg/kg/min. PAC 38/29, CI 1.7-1.9. PCWP was 36 GI/abdomen: Soft, mildly tender to palpation diffusely. no guarding Extremities: Warm bilaterally, bilateral edema trace now A/P Assessment and Plan Assessment: 72yF with biventricular failure, severe was in cardiogenic shock when milrinone was weaned. now with persistently elevated lactate, now improving. and remains on milrinone therapy. still clinically appears volume overloaded, PAC placed 11/30, consistent with BiV failure. DCd IVF, start Bumex drip Active problems: Severe biventricular failure Cor pulmonale Cardiogenic shock Acute hypoxic respiratory failure - improving Bilateral pleural effusion R>L Congestive hepatopathy Acute kidney injury secondary to cardiogenic shock Pulmonary hypertension Nonischemic cardiomyopathy with LVEF 20% Metabolic acidosis: Suspect low flow state causing lactic acidosis with probable bowel ischemia Diarrhea - improving. Abdominal pain Tachycardia Thrombocytopenia Plan: RHC with PCWP 36, CI 1.7. Continue milrinone. Start Bumex bolus and infusion at 1 mg per hour Monitor BMP every 8 hours with potassium supplements Dr. Luna is starting dopamine-watch for tachycardia Plan for right thoracentesis today serial LFTs, BMP, CBC trend lactates, remains elevated watch uop, requires hough wean o2 by nc for goal spo2 > 92% Lomotil for diarrhea: likely this is from ischemia, but patient says it gives her symptomatic relief, and she specifically requests it. HIT negative -Restart Lovenox or sq hepain in 24 hours Remain in ICU. critically ill. off pathway. CCT 42 MIN Discussed extensively with Dr. Luna. Anuja Shukla MD Dec 01, 2017 07:54
[2017-12-01] MEDS ORDERED: LIDOCAINE HCL 1% 50 ML VIAL ONE (08:11)
[2017-12-01] MEDS ORDERED: DOPamine 800 MG/D5W PREMIX 500 ML IV PRN (08:15)
[2017-12-01] MEDS: BUMETANIDE 25 MG/100 ML CONTINOUS DRIP IV SCH (08:21)
[2017-12-01] MEDS: POTASSIUM CHLORIDE 20 MEQ PWD PACKET PO SCH ×3 (09:00→18:00)
[2017-12-01] MEDS: ASPIRIN 81 MG CHEW TAB CHEW SCH (09:00)
[2017-12-01] MEDS: SODIUM CHLORIDE 0.9% FLUSH 10 ML FLUSH IV FLUSH SCH ×2 (09:00→21:42)
[2017-12-01] MEDS: POTASSIUM CHLORIDE 20 MEQ CONTROLLED RELEASE TAB PO SCH ×2 (09:00→21:00)
--- NOTE | 2017-12-01 12:41 | PD.PROCEDR ---
Procedure Note Procedure US guided right Thoracentesis Indication: Large right pleural effusion A time-out was completed verifying correct patient, procedure, site, positioning , and special equipment. The patients right side was prepped and draped in a sterile manner after the appropriate infiltration level was confirmed by ultrasound. 1% lidocaine was used anesthetize the surrounding skin. A finder needle was then used to locate fluid and clear yellow fluid was obtained. A 10- blade scalpel used to make the incision. The thoracentesis catheter was then threaded without difficulty. The patient had 1600 ml (1.6L) of clear yellow fluid removed. A post-procedure chest x-ray was ordered and the fluid will be sent for several studies. Estimated Blood Loss: <1 ml The patient tolerated the procedure well and there were no complications. Anuja Shukla MD Dec 01, 2017 12:41
--- NOTE | 2017-12-01 14:03 | RADRPT ---
EXAM DATE/TIME: 12/01/2017 13:17 [place] COMPARISON: CHEST SINGLE AP, December 01, 2017, 6:40. INDICATIONS : Post right thoracentesis. MEDICAL HISTORY : Hypertension. SURGICAL HISTORY : None. ENCOUNTER: Subsequent ACUITY: 1 day PAIN SCORE: 0/10 LOCATION: Right chest FINDINGS: There is been interval removal of a large right-sided effusion. There is no pneumothorax. Areas conso lidation or infiltrate in the right lower lobe. There is a small effusion on the left. There is a Glidden-Alexis catheter in place The heart is mildly enlarged. CONCLUSION: 1. No pneumothorax identified following right thoracentesis. 2. Consolidation/atelectasis or pneumonia the right lung base. 3. Small left basilar effusion. 4. Cardiomegaly. Riley Weinberg MD on December 01, 2017 at 13:59 Board Certified Radiologist. This report was verified electronically.
[2017-12-01 14:13] LABS: TOTAL PROTEIN,PLEURAL FLUID 3.4 GM/DL
--- NOTE | 2017-12-01 14:20 | ECHRPT ---
Indication: heart failure CONCLUSIONS The left ventricular systolic function is severely reduced with an estimated ejection fraction in th e range of 25-30%. Wall thickness is normal. There is global left ventricular dysfunction. ef=25% A pacemaker wire is noted. There is a pacemaker wire present in the right atrial cavity. Moderate mitral valve regurgitation. Aortic valve sclerosis is present. There is moderate tricuspid regurgitation. The estimated pulmonary arterial pressure is 32.3 mmHg. There is a small pericardial effusion present. A small left sided pleural effusion is noted. BP: 105 / 58 HR: 107 Rhythm: Sinus MEASUREMENTS (Male / Female) Normal Values Technical Quality:Fair 2D ECHO LV Diastolic Diameter PLAX 4.4 cm 4.2 - 5.9 / 3.9 - 5.3 cm LV Systolic Diameter PLAX 3.6 cm IVS Diastolic Thickness 1.0 cm 0.6 - 1.0 / 0.6 - 0.9 cm LVPW Diastolic Thickness 1.0 cm 0.6 - 1.0 / 0.6 - 0.9 cm LV Relative Wall Thickness 0.5 RV Internal Dim ED PLAX 2.7 cm LVOT Diameter 1.6 cm LA Systolic Diameter LX 3.3 cm 3.0 - 4.0 / 2.7 - 3.8 cm LV Ejection Fraction MOD 4C 45.2 % LV Cardiac Index MOD 4C 1867.1 cm/minm LV Ejection Fraction 4C AL 46.4 % LV Cardiac Index 4C AL 1994.5 cm/minm M-MODE Aortic Root Diameter MM 2.1 cm LA Systolic Diameter MM 3.3 cm LA Ao Ratio MM 1.6 AV Cusp Separation MM 1.6 cm DOPPLER AV Peak Velocity 79.3 cm/s AV Peak Gradient 2.5 mmHg LVOT Peak Velocity 72.1 cm/s LVOT Peak Gradient 2.1 mmHg AV Area Cont Eq pk 1.8 cm MV Area PHT 5.0 cm Mitral E Point Velocity 73.1 cm/s Mitral A Point Velocity 94.8 cm/s Mitral E to A Ratio 0.8 LV E' Lateral Velocity 6.6 cm/s Mitral E to LV E' Lateral Ratio 11.0 LV E' Septal Velocity 3.9 cm/s Mitral E to LV E' Septal Ratio 18.7 TR Peak Velocity 236.0 cm/s TR Peak Gradient 22.3 mmHg Right Atrial Pressure 10.0 mmHg Pulmonary Artery Systolic Pressu 32.3 mmHg Right Ventricular Systolic Press 32.3 mmHg PV Peak Velocity 67.3 cm/s PV Peak Gradient 1.8 mmHg FINDINGS LEFT VENTRICLE The left ventricular systolic function is severely reduced with an estimated ejection fraction in th e range of 25-30%. Wall thickness is normal. There is global left ventricular dysfunction. RIGHT VENTRICLE A pacemaker wire is noted. LEFT ATRIUM The left atrial size is normal. RIGHT ATRIUM There is a pacemaker wire present in the right atrial cavity. ATRIAL SEPTUM Normal atrial septal thickness without atrial level shunting by limited color doppler interrogation. AORTA The aortic root and proximal ascending aorta are normal in size on limited imaging. MITRAL VALVE Structurally normal mitral valve. Mild mitral valve regurgitation. AORTIC VALVE Trileaflet aortic valve. Aortic valve sclerosis is present. TRICUSPID VALVE Structurally normal tricuspid valve. There is moderate tricuspid regurgitation. The estimated pulmonary arterial pressure is 32.3 mmHg. PULMONARY VALVE No pulmonary valve regurgitation or stenosis. VESSELS The inferior vena cava is normal in size. PERICARDIUM There is a small pericardial effusion present. A small left sided pleural effusion is noted. Connor Perez MD, FACC, [id number] (Electronically Signed) Final Date:01 December 2017 14:19
--- NOTE | 2017-12-01 14:21 | HHI.HCPN ---
Reason for visit a. To assist with evaluation and management of symptoms including: Dyspnea b. To assist medical decision maker(s) with: better understanding of current medical conditions; weighing benefits/burdens of medical treatment options; making medical treatment decisions. . Subjective/Interval History INTERVAL NOTE: The patient seems to be declining significantly. She appears weaker, is lethargic now (ever since the Ativan and the procedure yesterday afternoon), her blood pressure is now in the 70s systolic, and her oxygen saturation is down in the 80s in spite of the mask. Her creatinine is 1.71. She underwent a thoracentesis with removal of 1700 cc earlier today. . Family/friend interactions Lengthy discussion with patient's son Fermin (her designated health care surrogate) and his . They also see the significant decline, and they tell me that they also are less optimistic about her surviving this. They relate repeated conversations they had had with her in recent years, and tell me that they are certain that she would not want to be intubated and placed on a mechanical ventilator. They know that she would not want to end up requiring 24 -hour nursing care. Fermin specifically requests no intubation at this time. . Advance Directives Living Will: Copy in medical record Health Care Surrogate: Copy in medical record Durable Power of Management Engineer: Never completed Advance Directive Specifics Health Care Surrogate(s): Primary healthcare surrogate his son Fermin, secondary is son Noel . Documented care wishes: The patient has a living will . Significant change in goals: No intubation . Objective Vital Signs Date Time Temp Pulse Resp B/P (MAP) Pulse Ox O2 Delivery O2 Flow Rate FiO2 12/01/17 13:48 125 81/57 12/01/17 11:00 97.7 126 15 93/60 (71) 94 12/01/17 11:00 126 12/01/17 11:00 94 Nasal Cannula 5.00 12/01/17 08:51 115 90/64 12/01/17 08:42 98 Nasal Cannula 3.00 12/01/17 08:00 115 90/64 (73) 12/01/17 07:00 98 Nasal Cannula 4.00 12/01/17 07:00 97.9 115 16 92/66 (75) 98 12/01/17 07:00 115 12/01/17 05:36 107 105/58 12/01/17 04:00 108 12/01/17 04:00 97 Nasal Cannula 4.00 12/01/17 04:00 97.3 109 16 96/60 (72) 97 12/01/17 00:00 110 12/01/17 00:00 97.4 109 18 111/49 (69) 99 12/01/17 00:00 99 Nasal Cannula 4.00 11/30/17 23:00 113 103/55 (71) 11/30/17 20:00 97.8 114 20 98/70 (79) 99 11/30/17 20:00 99 Nasal Cannula 4.00 11/30/17 20:00 114 98/70 (79) 11/30/17 20:00 114 11/30/17 19:30 98 Nasal Cannula 3.00 11/30/17 18:00 112 99/70 (80) 11/30/17 16:14 109 117/63 11/30/17 15:23 112 25 98/60 90 11/30/17 15:03 119 20 103/73 94 11/30/17 15:00 94 Nasal Cannula 4.00 Humidified 11/30/17 15:00 98.8 119 18 103/73 (83) 94 11/30/17 15:00 119 11/30/17 14:43 98.6 118 20 87/58 93 Intake & Output 12/01/17 12/01/17 07:00 19:00 Intake Total 390 ml 100 ml Output Total 123 ml Balance 267 ml 100 ml Intake Oral 0 ml IV Total 390 ml 100 ml Output Urine Total 123 ml # Bowel Movements 1 Physical Exam CONSTITUTIONAL/GENERAL: She is weaker, more pale, more lethargic. TUBES/LINES/DRAINS: Nasal O2, IV access, Vazquez SKIN: No jaundice, rashes, or lesions. Ecchymoses on upper extremities. No wounds seen anteriorly. Skin temperature appropriate. Not diaphoretic. ENT: Hearing grossly normal. Nose without bleeding or purulent drainage. NECK: Trachea midline. Supple, nontender. No palpable thyroid enlargement or nodularity. CARDIOVASCULAR: Regular rate and rhythm with grade 1 systolic murmur. RESPIRATORY/CHEST: Symmetric, unlabored respirations. Breath sounds equal bilaterally. Some scattered rales GASTROINTESTINAL: Abdomen soft, non-tender, nondistended. No hepato-splenomegaly , or palpable masses. No guarding. Bowel sounds present. GENITOURINARY: Without palpable bladder distension. Vazquez catheter is present NEUROLOGICAL: Very weak, lethargic now. Moves all extremities. PSYCHIATRIC: No obvious anxiety/depression. no apparent hallucinations or other psychotic thought process. . Diagnostic Tests Laboratory Laboratory Tests Test 11/29/17 04:23 11/29/17 09:52 11/29/17 14:15 11/30/17 04:35 White Blood Count 7.2 TH/MM3 (4.0-11.0) 6.9 TH/MM3 (4.0-11.0) Red Blood Count 3.41 MIL/MM3 (4.00-5.30) 3.28 MIL/MM3 (4.00-5.30) Hemoglobin 10.5 GM/DL (11.6-15.3) 9.9 GM/DL (11.6-15.3) Hematocrit 31.0 % (35.0-46.0) 30.2 % (35.0-46.0) Mean Corpuscular Volume 90.7 FL (80.0-100.0) 92.1 FL (80.0-100.0) Mean Corpuscular Hemoglobin 30.7 PG (27.0-34.0) 30.3 PG (27.0-34.0) Mean Corpuscular Hemoglobin Concent 33.9 % (32.0-36.0) 32.9 % (32.0-36.0) Red Cell Distribution Width 17.9 % (11.6-17.2) 17.8 % (11.6-17.2) Platelet Count 52 TH/MM3 (150-450) 47 TH/MM3 (150-450) Mean Platelet Volume 10.1 FL (7.0-11.0) 10.4 FL (7.0-11.0) Prothrombin Time 16.1 SEC (9.8-11.6) 15.6 SEC (9.8-11.6) Prothromb Time International Ratio 1.6 RATIO 1.5 RATIO Activated Partial Thromboplast Time 46.4 SEC (24.3-30.1) 35.7 SEC (24.3-30.1) Blood Urea Nitrogen 31 MG/DL (7-18) 34 MG/DL (7-18) Creatinine 1.67 MG/DL (0.50-1.00) 1.68 MG/DL (0.50-1.00) Random Glucose 85 MG/DL (74-106) 75 MG/DL (74-106) Total Protein 6.3 GM/DL (6.4-8.2) 6.1 GM/DL (6.4-8.2) Albumin 4.1 GM/DL (3.4-5.0) 3.8 GM/DL (3.4-5.0) Calcium Level 8.6 MG/DL (8.5-10.1) 8.5 MG/DL (8.5-10.1) Phosphorus Level 1.5 MG/DL (2.5-4.9) 2.4 MG/DL (2.5-4.9) Alkaline Phosphatase 64 U/L (45-117) 72 U/L (45-117) Aspartate Amino Transf (AST/SGOT) 93 U/L (15-37) 70 U/L (15-37) Alanine Aminotransferase (ALT/SGPT) 32 U/L (10-53) 30 U/L (10-53) Total Bilirubin 1.7 MG/DL (0.2-1.0) 1.2 MG/DL (0.2-1.0) Sodium Level 141 MEQ/L (136-145) 139 MEQ/L (136-145) Potassium Level 3.6 MEQ/L (3.5-5.1) 3.3 MEQ/L (3.5-5.1) Chloride Level 97 MEQ/L (98-107) 97 MEQ/L (98-107) Carbon Dioxide Level 30.0 MEQ/L (21.0-32.0) 29.6 MEQ/L (21.0-32.0) Anion Gap 14 MEQ/L (5-15) 12 MEQ/L (5-15) Estimat Glomerular Filtration Rate 30 ML/MIN (>89) 30 ML/MIN (>89) Lactic Acid Level 3.5 mmol/L (0.4-2.0) 3.5 mmol/L (0.4-2.0) Magnesium Level 1.7 MG/DL (1.5-2.5) Digoxin Level 1.6 NG/ML (0.8-2.0) Serotonin Release Assay NEGATIVE (NEGATIVE) Heparin-Induced Platelet Ab (Shruti) NEGATIVE (NEGATIVE) ZAINAB UF Heparin Low Dose 0.1 IU/mL 0 (2.1-21.7) ZAINAB UF Heparin Low Dose 0.5 IU/mL 0 (2.1-21.7) ZAINAB UF Heparin High Dose 100 IU/mL 0 (2.1-21.7) HIPA Patient Optical Density 0.125 O.D. (0.000-0.300) Nasal Screen MRSA (PCR) NEGATIVE (NEGATIVE) Staphylococcus aureus (PCR)(LAB) NEGATIVE (NEGATIVE) B-Type Natriuretic Peptide GREATER THAN 5000 PG/ML Test 12/01/17 03:50 12/01/17 13:25 12/01/17 13:52 White Blood Count 5.4 TH/MM3 (4.0-11.0) Red Blood Count 2.91 MIL/MM3 (4.00-5.30) Hemoglobin 9.1 GM/DL (11.6-15.3) Hematocrit 26.9 % (35.0-46.0) Mean Corpuscular Volume 92.3 FL (80.0-100.0) Mean Corpuscular Hemoglobin 31.2 PG (27.0-34.0) Mean Corpuscular Hemoglobin Concent 33.8 % (32.0-36.0) Red Cell Distribution Width 16.9 % (11.6-17.2) Platelet Count 108 TH/MM3 (150-450) Mean Platelet Volume 8.5 FL (7.0-11.0) Prothrombin Time 14.0 SEC (9.8-11.6) Prothromb Time International Ratio 1.4 RATIO Activated Partial Thromboplast Time 35.3 SEC (24.3-30.1) Blood Urea Nitrogen 34 MG/DL (7-18) Creatinine 1.71 MG/DL (0.50-1.00) Random Glucose 80 MG/DL (74-106) Total Protein 6.5 GM/DL (6.4-8.2) Albumin 4.1 GM/DL (3.4-5.0) Calcium Level 8.4 MG/DL (8.5-10.1) Alkaline Phosphatase 68 U/L (45-117) Aspartate Amino Transf (AST/SGOT) 43 U/L (15-37) Alanine Aminotransferase (ALT/SGPT) 24 U/L (10-53) Total Bilirubin 1.1 MG/DL (0.2-1.0) Sodium Level 140 MEQ/L (136-145) Potassium Level 3.0 MEQ/L (3.5-5.1) Chloride Level 98 MEQ/L (98-107) Carbon Dioxide Level 31.1 MEQ/L (21.0-32.0) Anion Gap 11 MEQ/L (5-15) Estimat Glomerular Filtration Rate 29 ML/MIN (>89) Lactic Acid Level 2.4 mmol/L (0.4-2.0) Pleural Fluid Total Protein 3.4 GM/DL Pleural Fluid LDH 151 U/L Pleural Fluid Glucose 91 MG/DL Blood Gas Puncture Site RT RADIAL Blood Gas Patient Temperature 98.6 Blood Gas HCO3 25 mmol/L (22-26) Blood Gas Base Excess 0.9 mmol/L (-2-2) Blood Gas Oxygen Saturation 80 % (90-100) Arterial Blood pH 7.40 (7.380-7.420) Arterial Blood Partial Pressure CO2 42 mmHg (38-42) Arterial Blood Partial Pressure O2 49 mmHg (61-120) Arterial Blood Oxygen Content 12.2 Vol % (12.0-20.0) Arterial Blood Carboxyhemoglobin 1.2 % (0-4) Arterial Blood Methemoglobin 1.2 % (0-2) Blood Gas Hemoglobin 10.9 G/DL (12.0-16.0) Oxygen Delivery Device Venti Mask Blood Gas Liter Flow 6 L/M Blood Gas Inspired Oxygen 50 % Result Diagram: 12/01/17 0350 12/01/17 0350 Microbiology Microbiology Date/Time Source Procedure Growth Status 12/01/17 13:25 Fluid Pleural Fluid Fungal Smear Pending Received 12/01/17 13:25 Fluid Pleural Fluid Fungal Culture Pending Received 12/01/17 13:25 Fluid Pleural Fluid Acid Fast Stain Pending Received 12/01/17 13:25 Fluid Pleural Fluid Mycobacterial Culture Pending Received 12/01/17 13:25 Fluid Pleural Fluid Gram Stain Pending Received 12/01/17 13:25 Fluid Pleural Fluid Body Fluid Culture Pending Received Imaging Last Impressions Chest X-Ray 12/01/17 0000 Signed Impressions: Service Date/Time: Friday, December 01, 2017 13:17 - CONCLUSION: 1. No pneumothorax identified following right thoracentesis. 2. Consolidation/atelectasis or pneumonia the right lung base. 3. Small left basilar effusion. 4. Cardiomegaly. Riley Weinberg MD Abdomen/Pelvis CT 11/23/17 0000 Signed Impressions: Service Date/Time: Thursday, November 23, 2017 21:30 - CONCLUSION: 1. No obstruction or acute inflammatory changes are seen in the abdomen or pelvis. 2. Apparent complex cystic and solid mass of the mid zone of the right kidney. A followup MRI of the abdomen is recommended with and without contrast in approximately 3 months. This may be helpful in further characterizing a small, probably benign but nonspecific hypodensity of the liver. 3. Nonspecific right greater than left pleural effusions and basilar atelectasis. There is an area of nonenhancing right lower lobe pulmonary parenchyma compatible with pneumonia. Infection and post obstructive process would be in the differential. After treatment for presumed pneumonia, a followup CT of the chest, preferably with intravenous contrast, is recommended within the next couple of months, sooner if felt clinically indicated. 4. Also a nonspecific moderate size pericardial effusion. Vazquez Perdue MD Assessment and Plan Disease Oriented Problem List: (1) cardiomyopathy (2) congestive failure with pronounced right side failure symptoms (3) low flow state, with some hepatic, renal, and GI effects (4) CHF, first diagnosed August 2017 (5) right kidney cyst on CT scan, possibly complex (6) colitis, possible ischemic (7) GERD (8) history of hypertension (9) history of hyperthyroid (10) peripheral neuropathy (11) history of B12 deficiency (12) history of avascular necrosis left hip 2002 Symptom Scale: (1) dyspnea 0-10 Scale: 1 (2) weakness 0-10 Scale: 6 Pertinent Non-Medical Issues Psychosocial: , 3 sons living locally, 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 Legal: The patient has capacity for decision-making. She has designated her sons Fermin and Noel as primary and secondary HCS respectively. Ethical issues impacting care: None . Important Contacts Son: Fermin Bernard [phone] Son: Noel Bernard [phone] . Prognosis Overall, her prognosis is quite guarded. She has significant cardiomyopathy with low flow state. She will be appropriate for hospice services if the upcoming studies confirm end-stage disease, and if the goals become solely comfort oriented. . Code Status: Alternative Code (no intubation) Plan * ALTERNATE CODE: No intubation * DECISION-MAKING: The patient now does not have capacity for decision-making. She has designated her sons Fermin and Noel as primary and secondary HCS respectively. * GOALS: The family is talking with the nurse about bringing grandchildren up to see the patient if she does become a little more alert and could interact with them. They recognize that she is likely to not survive this hospitalization, and they are open to hospice services if she continues to decline.. * SYMPTOMS: The patient's dyspnea and hypotension is significant at times. I have no additional medication recommendations at this time. * Palliative Care will continue to follow the patient during this hospitalization. . Time Spent Total Floor Time (mins): 43 Face to Face Time (mins): 21 >50% Counseling/Coord of Care: Yes (d/w RN) Attestation To help prompt me to consider important information that might be impacting today's encounter and assessment, information from prior notes written by myself or my colleagues may have been "brought forward" into today's note. My signature on this note, however, is an attestation that I personally performed the exam, history, and/or decision-making noted today, and, unless otherwise indicated, the interactions with patient, family, and staff as well as the review of records all occurred today. I also attest that the listed assessment and stated plan reflect my best clinical judgment today based on the combination of historical information, prior notes, and today's exam/ interactions. When time spent is documented, it refers only to time spent today by the signer, or if indicated, combined time spent today by collaborating physician/nurse practitioner. Evelyn Desir MD Dec 01, 2017 14:21
[2017-12-01 14:25] LABS: PLEURAL FLUID LYMPHS 7 %; PLEURAL FLUID POLYS (SEGS) 93 %; PLEURAL FLUID RBC 60 /MM3 (0-0); PLEURAL FLUID WBC 50 /MM3 (0-10)
[2017-12-01] MEDS: CEFEPIME INJ 2,000 MG in SODIUM CHLORIDE 0.9% INJ 100 ML IV SCH (14:55)
[2017-12-01] MEDS: VASOPRESSIN INJ 40 UNITS in DEXTROSE 5% IN WATER 100ML INJ 98 ML IV SCH ×2 (14:58)
[2017-12-01 15:16] LABS: BICARBONATE 28.6 MEQ/L (21.0-32.0); CALCIUM 8.7 MG/DL (8.5-10.1); CREATININE 1.61 MG/DL (0.50-1.00)
[2017-12-01] MEDS: PANTOPRAZOLE SODIUM 40 MG VIAL IV PUSH SCH (21:42)
[2017-12-01 23:13] LABS: BICARBONATE 24.5 MEQ/L (21.0-32.0); CALCIUM 8.8 MG/DL (8.5-10.1); CREATININE 1.58 MG/DL (0.50-1.00)
[2017-12-02] VITALS (14 sets, daily range): BP systolic 57–101; BP diastolic 36–72; PULSE 114–131; RESP 10–32; TEMP 95–99; O2SAT 0–100
[2017-12-02] MEDS: POTASSIUM CHLOR 40 MEQ PREMIX 100 ML IV PRN ×2 (02:27→04:40)
[2017-12-02] MEDS: MILRINONE INJ 20 MG in SODIUM CHLORIDE 0.9% INJ 80 ML IV SCH (02:53)
[2017-12-02] MEDS: CEFEPIME INJ 2,000 MG in SODIUM CHLORIDE 0.9% INJ 100 ML IV SCH (02:54)
--- NOTE | 2017-12-02 04:53 | RADRPT ---
EXAM DATE/TIME: 12/02/2017 03:34 [facility] COMPARISON: CHEST SINGLE AP, December 01, 2017, 13:17. INDICATIONS : Shortness of breath, possible pneumothorax. MEDICAL HISTORY : Hypertension. SURGICAL HISTORY : Thoracentesis ENCOUNTER: Subsequent ACUITY: 1 week PAIN SCORE: 0/10 LOCATION: Bilateral chest FINDINGS: There is a [place] catheter in place from the right internal jugular approach with the tip in the r ight pulmonary artery. The heart size is enlarged. There is worsening increased density at the right base. Left lung is grossly clear. There is a right effusion. CONCLUSION: Worsening consolidation at the right mid and lower lung with a at least mild right pleural effusion. No pneumothorax is seen. Vazquez Crow MD on December 02, 2017 at 4:50 Board Certified Radiologist. This report was verified electronically.
[2017-12-02] MEDS: VASOPRESSIN INJ 40 UNITS in DEXTROSE 5% IN WATER 100ML INJ 98 ML IV SCH ×2 (06:07)
[2017-12-02] MEDS ORDERED: DOPamine 800 MG/D5W PREMIX 500 ML IV PRN (06:15)
[2017-12-02] MEDS ORDERED: ALBUMIN 25% INJ 100 ML IV SCH (06:15)
[2017-12-02] MEDS: ALBUMIN 25% INJ 100 ML IV SCH (06:36)
[2017-12-02 07:10] LABS: INTERNATIONAL NORMALIZED RATIO 2.1 RATIO; PROTHROMBIN TIME - PATIENT 20.8 SEC (9.8-11.6)
[2017-12-02] MEDS: BUMETANIDE 25 MG/100 ML CONTINOUS DRIP IV SCH (07:29)
--- NOTE | 2017-12-02 08:53 | PD.CARD.PN ---
Subjective Subjective Remarks Breathing labored, on BiPAP. BP low, on vasopressin and dopamine. RN and family at bedside. Lower extremity edema improved, on Bumex GTT. Objective Medications Current Medications Medications (Trade) Dose Ordered Sig/Gwendolyn Route Start Time Stop Time Status Last Admin (NS Flush) 2 ml BID IV FLUSH 11/24/17 09:00 12/01/17 21:42 (NS Flush) 2 ml UNSCH PRN IV FLUSH 11/23/17 22:15 (Aspirin Chew) 81 mg DAILY CHEW 11/24/17 09:00 11/30/17 09:05 (Zofran Inj) 4 mg Q6HR PRN IV PUSH 11/23/17 22:30 11/29/17 15:04 Albumin Human 100 ml @ 60 mls/hr BID@0830,1730 IV 11/25/17 08:30 Future Hold 12/02/17 06:36 (KCl Powder) 20 meq TID PO 11/25/17 18:00 11/30/17 13:04 Milrinone Lactate 20 mg/Sodium Chloride 100 ml @ 8.62 mls/hr [id number] IV 11/27/17 18:00 12/02/17 02:53 (Protonix Inj) 40 mg Q24H IV PUSH 11/27/17 20:00 12/01/17 21:42 (Lovenox Inj) 30 mg Q24H SQ 11/28/17 20:00 Future Hold 11/28/17 20:26 (Imodium) 2 mg Q4H PRN PO 11/28/17 16:30 11/29/17 22:18 Potassium Chloride 100 ml @ 50 mls/hr Q2H PRN IV 11/29/17 09:00 12/02/17 04:40 Potassium Chloride 100 ml @ 50 mls/hr Q2H PRN IV 11/29/17 09:00 (K-Lyte Cl Eff) 50 meq UNSCH PRN PO 11/29/17 09:00 Potassium Chloride 100 ml @ 25 mls/hr UNSCH PRN IV 11/29/17 09:00 Potassium Chloride 100 ml @ 50 mls/hr Q2H PRN IV 11/29/17 09:00 Magnesium Sulfate 4 gm/Sodium Chloride 100 ml @ 50 mls/hr UNSCH PRN IV 11/29/17 09:00 (Mag-Ox) 800 mg UNSCH PRN PO 11/29/17 09:00 Magnesium Sulfate 2 gm/Sodium Chloride 100 ml @ 50 mls/hr UNSCH PRN IV 11/29/17 09:00 (K-Phos) 2,000 mg Q4H PRN PO 11/29/17 09:00 11/29/17 09:57 Sodium Phosphate 30 mmol/Sodium Chloride 250 ml @ 42 mls/hr UNSCH PRN IV 11/29/17 09:00 (K-Phos) 2,000 mg UNSCH PRN PO/TUBE 11/29/17 09:00 Potassium Phosphate 30 mmol/ Sodium Chloride 260 ml @ 42 mls/hr UNSCH PRN IV 11/29/17 09:00 (Brethine Inj) 1 mg UNSCH PRN SQ 12/01/17 07:30 (KCl) 20 meq Q12HR PO 12/01/17 09:00 Bumetanide 100 ml @ 4 mls/hr Q24H IV 12/01/17 08:15 12/02/17 07:29 Cefepime HCl 2000 mg/Sodium Chloride 100 ml @ 200 mls/hr Q12H IV 12/01/17 15:00 12/02/17 02:54 Vasopressin 40 units/Dextrose 100 ml @ 6 mls/hr [id number] IV 12/01/17 14:03 12/02/17 06:07 (Brethine Inj) 1 mg UNSCH PRN SQ 12/01/17 14:15 Dopamine HCl/ Dextrose 500 ml @ 4.425 mls/ hr TITRATE PRN IV 12/02/17 06:15 12/02/17 06:31 Vital Signs / I&O Vital Signs Date Time Temp Pulse Resp B/P (MAP) Pulse Ox O2 Delivery O2 Flow Rate FiO2 12/02/17 07:24 93 40 12/02/17 07:00 95.0 115 25 101/46 (64) 95 12/02/17 06:31 113 77/59 12/02/17 06:07 114 84/56 12/02/17 06:00 119 84/53 (63) 12/02/17 05:00 119 84/53 (63) 12/02/17 04:00 97 40 12/02/17 04:00 96.0 129 26 85/54 (64) 94 1/18/18 03:33 131 12/02/17 03:32 97 Bi-Pap 40 12/02/17 02:53 129 110/55 12/02/17 00:30 131 12/02/17 00:24 100 40 12/02/17 00:00 97 Bi-Pap 40 12/02/17 00:00 98.6 121 32 100/72 (81) 100 12/01/17 20:38 99 50 12/01/17 20:00 99.3 112 16 83/55 (64) 98 12/01/17 19:30 97 Bi-Pap 50 12/01/17 19:30 112 12/01/17 18:00 115 91/64 (73) 12/01/17 16:23 118 92/62 12/01/17 15:50 96 100 12/01/17 15:00 98.9 132 18 96/62 (73) 94 12/01/17 15:00 94 Non-Rebreather 100 12/01/17 15:00 132 12/01/17 14:58 137 81/56 12/01/17 14:10 94 Non-Rebreather 15.00 12/01/17 13:48 125 81/57 12/01/17 13:20 80 Venturi Mask 6.00 50 12/01/17 11:00 97.7 126 15 93/60 (71) 94 12/01/17 11:00 126 12/01/17 11:00 94 Nasal Cannula 5.00 I/O 12/01/17 12/01/17 12/01/17 12/02/17 12/02/17 12/02/17 07:00 15:00 23:00 07:00 15:00 23:00 Intake Total 290 ml 100 ml 300 ml 431 ml Output Total 123 ml 2300 ml 370 ml Balance 167 ml 100 ml -2000 ml 61 ml Intake Oral 0 ml 0 ml 0 ml IV Total 290 ml 100 ml 300 ml 431 ml Output Urine Total 123 ml 800 ml 370 ml Drainage Total 1500 ml # Bowel Movements 1 1 1 Physical Exam GENERAL: Well-developed well-nourished. NECK: No carotid bruits. No JVD. CARDIOVASCULAR: Regular rate and irregular rhythm. No murmur appreciated. RESPIRATORY: Breathing labored on BiPAP. Coarse basilar breath sounds. MUSCULOSKELETAL: No clubbing or cyanosis. No edema. NEUROLOGICAL: Lethargic, sedated on Ativan Laboratory Laboratory Tests Test 12/01/17 13:25 12/01/17 13:52 12/01/17 14:14 12/01/17 22:36 Pleural Fluid pH 8.5 Pleural Fluid WBC 50 /MM3 Pleural Fluid RBC 60 /MM3 Pleural Fluid Neutrophils 93 % Pleural Fluid Lymphocytes 7 % Pleural Fluid Total Protein 3.4 GM/DL Pleural Fluid LDH 151 U/L Pleural Fluid Glucose 91 MG/DL Blood Gas Puncture Site RT RADIAL Blood Gas Patient Temperature 98.6 Blood Gas HCO3 25 mmol/L Blood Gas Base Excess 0.9 mmol/L Blood Gas Oxygen Saturation 80 % Arterial Blood pH 7.40 Arterial Blood Partial Pressure CO2 42 mmHg Arterial Blood Partial Pressure O2 49 mmHg Arterial Blood Oxygen Content 12.2 Vol % Arterial Blood Carboxyhemoglobin 1.2 % Arterial Blood Methemoglobin 1.2 % Blood Gas Hemoglobin 10.9 G/DL Oxygen Delivery Device Venti Mask Blood Gas Liter Flow 6 L/M Blood Gas Inspired Oxygen 50 % Blood Urea Nitrogen 34 MG/DL 35 MG/DL Creatinine 1.61 MG/DL 1.58 MG/DL Random Glucose 81 MG/DL 100 MG/DL Calcium Level 8.7 MG/DL 8.8 MG/DL Sodium Level 141 MEQ/L 141 MEQ/L Potassium Level 3.8 MEQ/L 3.2 MEQ/L Chloride Level 100 MEQ/L 98 MEQ/L Carbon Dioxide Level 28.6 MEQ/L 24.5 MEQ/L Anion Gap 12 MEQ/L 19 MEQ/L Estimat Glomerular Filtration Rate 32 ML/MIN 32 ML/MIN Test 12/02/17 06:15 12/02/17 08:15 Prothrombin Time 20.8 SEC Prothromb Time International Ratio 2.1 RATIO Activated Partial Thromboplast Time 41.1 SEC Imaging Last 24 hours Impressions Chest X-Ray 12/02/17 0600 Signed Impressions: Service Date/Time: November 03:34 - CONCLUSION: Worsening consolidation at the right mid and lower lung with a at least mild right pleural effusion. No pneumothorax is seen. Vazquez Crow MD Assessment and Plan Problem List: (1) CHF exacerbation ICD Codes: I50.9 - Heart failure, unspecified Status: Acute Assessment and Plan decompensated acute on chronic systolic and diastolic CHF, EF 25% NYHA class IV Infusions: milrinone, Bumex, vasopressin, dopamine Good urine output overnight. Edema improved. Creatinine today pending Problem Qualifiers (1) CHF exacerbation: Qualified Codes: I50.9 - Heart failure, unspecified Eder Morrison Dec 02, 2017 08:53
[2017-12-02 08:59] LABS: AUTOMATED NEUTROPHIL # 9.1 TH/MM3 (1.8-7.7); BASOPHIL % 0.2 % (0.0-2.0); EOSINOPHIL % 0.1 % (0.0-4.0); HEMATOCRIT 36.1 % (35.0-46.0); LYMPH % 5.9 % (9.0-44.0); LYMPHOCYTE # 0.6 TH/MM3 (1.0-4.8); MEAN CELL VOLUME 101.7 FL (80.0-100.0); MEAN CORPUSCULAR HGB CONC 30.5 % (32.0-36.0); MEAN PLATELET VOLUME 9.2 FL (7.0-11.0); MONO % 5.8 % (0.0-8.0); MONOCYTE # 0.6 TH/MM3 (0-0.9); PLATELET COUNT 109 TH/MM3 (150-450); RED BLOOD COUNT 3.55 MIL/MM3 (4.00-5.30); RED CELL DISTRIBUTION WIDTH 18.8 % (11.6-17.2); WHITE BLOOD COUNT 10.4 TH/MM3 (4.0-11.0)
[2017-12-02] MEDS: POTASSIUM CHLORIDE 20 MEQ CONTROLLED RELEASE TAB PO SCH (09:00)
[2017-12-02] MEDS: SODIUM CHLORIDE 0.9% FLUSH 10 ML FLUSH IV FLUSH SCH (09:00)
[2017-12-02] MEDS: POTASSIUM CHLORIDE 20 MEQ PWD PACKET PO SCH (09:00)
[2017-12-02] MEDS: ASPIRIN 81 MG CHEW TAB CHEW SCH (09:00)
[2017-12-02 09:19] LABS: ALBUMIN 5.1 GM/DL (3.4-5.0); ALKALINE PHOSPHATASE 66 U/L (45-117); ALT (GPT) 20 U/L (10-53); AST (GOT) 47 U/L (15-37); BICARBONATE 7.5 MEQ/L (21.0-32.0); BLOOD UREA NITROGEN 38 MG/DL (7-18); CALCIUM 9.1 MG/DL (8.5-10.1); CHLORIDE 101 MEQ/L (98-107); CREATININE 2.29 MG/DL (0.50-1.00); GLOMERULAR FILTRATION RATE 21 ML/MIN (>89); SODIUM (NA) 141 MEQ/L (136-145); TOTAL BILIRUBIN ADULT 2.3 MG/DL (0.2-1.0); TOTAL PROTEIN 7.4 GM/DL (6.4-8.2)
[2017-12-02 09:22] LABS: GLUCOSE,RANDOM 11 MG/DL (74-106)
[2017-12-02] MEDS ORDERED: DEXTROSE 50% IN WATER 50 ML SYRINGE ONE ×2 (09:22→10:27)
[2017-12-02] MEDS ORDERED: DEXTROSE 50% IN WATER 50 ML SYRINGE IV ONE (10:45)
[2017-12-02 10:52] LABS: BANDS 3 % (0-6); CORRECTED NUCLEATED RBC 24 /100 WBC (0-0); LYMPHOCYTES 6 % (9-44); MONOCYTES 4 % (0-8); NEUTROPHIL # MANUAL DIFF 9.4 TH/MM3 (1.8-7.7); NUCLEATED RED BLOOD CELL 24 (0-0); POLYS (SEG NEUTROPHILS) 87 % (16-70)
[2017-12-02 10:53] LABS: POLYCHROMASIA 2.6 % (0.0-1.9)
[2017-12-02] MEDS ORDERED: DEXTROSE 5% IN WATE 1000ML INJ 1,000 ML IV SCH (11:00)
[2017-12-02] MEDS ORDERED: LORazepam 2 MG/ML VIAL IV PUSH ONE ×2 (11:30→11:45)
[2017-12-02] MEDS ORDERED: MORPHINE SULFATE 8 MG/ML INJ IV PUSH ONE (11:30)
--- NOTE | 2017-12-02 11:40 | HHI.CCPN ---
Subjective Remarks/Hospital Course Hospital Course: 72-year-old female with a medical history significant for CHF, cardiomyopathy who was admitted initially at [facility] from November 08 And subsequently discharged. She has been very weak since her discharge and has had diarrhea for several months. She has also had nausea and poor appetite as well as long-standing shortness of breath. She presented back on November 23, 2017 to [facility] ER with generalized weakness as well as some shortness of breath. She had significant edema in her lower extremities. She was reportedly admitted with a sepsis at [facility] in October 2017 and CHF. Her LVEF is noted to be 20%. During previous hospitalization she was treated with IV antibiotics and pressors. She was also treated with antibiotics at that time. Patient was admitted by [facility] on November 23 and was evaluated by cardiology. She was initiated on diuretics, IV albumin as well as milrinone gtt. Initially she received Rocephin and Flagyl which was subsequently stopped. Milrinone gtt. was titrated off at 12 noon on 11/27. Patient developed worsening shortness of breath and some altered mental status and abdominal pain subsequently. She remained on 2 L nasal cannula however was slightly tachypneic. ABG was done for further evaluation around 6 PM which revealed severe metabolic acidosis with pH 7.16, PCO2 18, PO2 98 and bicarbonate 6. Critical care was consulted on 11/27 around 6:[address] Barbour was contacted by [facility] [employer] [facility] ordered 5 amps of sodium bicarbonate IV push. Patient's milrinone was resumed at 0.5 mics per KG per minute. I evaluated the patient after being notified of the consult and ordered stat labs and chest x-ray. When I evaluated the patient she was encephalopathic/lethargic with tachypnea. She had just received 5 A of sodium bicarbonate IV push. Stat labs are pending. Subjective: 11/28: remains in distress. lactate still elevated, and although clearing, very slowly. delayed clearance suggestive of higher mortality rate. poor urine output despite increasing doses of aggressive diuresis. had long discussion with patient, and she states she knows her heart is failing. had discussion with Dr. Barbour, and we both agree patient will need left and right heart caths in the AM and get objective evidence of PVR, PCWP and cardiac filling and output. she may need dialysis in order to offload intravascular volume from right heart failure. 11/29: uop improved from overnight, now 50-60cc/hr. remains on lasix drip. NPO for possible LHC/RHC. Cr remains elevated, but stable: likely ARISTIDES from ATN from poor perfusion 48h ago. patient subjectively feels improved and complaining of less fatigue and sob. 11/30: Remains critically ill, MAP 60-61. Creat 1.68. Getting fluids per Dr. Luna in attempt to improve creat for Cath. Will place central line of pressor/inotrope infusion and also CVP monitoring. UO 940 ml in 24 hours 12/01: PAC placed yesterday, PA pressures 38/29 now. Last PCWP was 36. IVF discontinue, IV Lasix 60 mg ordered. Discussed with Dr. Luna- agrees with management plan, he wants to use Dopamine at low dose. I will also start on Bumex gtt, with IV Albumin. Plan for bedside thoracentesis today 12/02: Critically ill and deteriorating, Initially good output on Bumex, now anuric, hypoglycemic (blood glucose 11). BiPAP dependent. Appears terminally ill. Extended family at the bedside. Per Patient's previous wishes they want to transition to comfort measures. Discussed with Dr. Desir and also discussed with Dr. Luna. All in agreement to transition to comfort measures. Objective Vital Signs Date Time Temp Pulse Resp B/P (MAP) Pulse Ox O2 Delivery O2 Flow Rate FiO2 12/02/17 10:15 0 40 12/02/17 07:00 95.0 115 25 101/46 (64) 12/02/17 07:00 Bi-Pap 12/01/17 14:10 15.00 Intake and Output 12/02/17 12/02/17 12/03/17 08:00 16:00 00:00 Intake Total 431 ml Output Total 370 ml Balance 61 ml Result Diagram: 12/02/17 0815 12/02/17 0815 Other Results Laboratory Tests Test 12/01/17 13:52 Blood Gas Puncture Site RT RADIAL Blood Gas Patient Temperature 98.6 Blood Gas HCO3 25 mmol/L (22-26) Blood Gas Base Excess 0.9 mmol/L (-2-2) Blood Gas Oxygen Saturation 80 % (90-100) Arterial Blood pH 7.40 (7.380-7.420) Arterial Blood Partial Pressure CO2 42 mmHg (38-42) Arterial Blood Partial Pressure O2 49 mmHg (61-120) Arterial Blood Oxygen Content 12.2 Vol % (12.0-20.0) Arterial Blood Carboxyhemoglobin 1.2 % (0-4) Arterial Blood Methemoglobin 1.2 % (0-2) Blood Gas Hemoglobin 10.9 G/DL (12.0-16.0) Oxygen Delivery Device Venti Mask Blood Gas Liter Flow 6 L/M Blood Gas Inspired Oxygen 50 % Objective Remarks HEENT/Neuro: No pallor or icterus, tongue dry, BiPAP mask in place Lethargic. Critically ill Neck: RIJ introducer in place with PAC Chest/pulmonary: Labored breathing on BiPAP. Diminished breath sounds at the bases. s/p thoracentesis with 1.6L removed 12/01/17 Cardiovascular: Tachycardic with heart rate 110s, sinus by tele. No murmurs. Remains on milrinone, vasopressin and dopamine. PAC GI/abdomen: Soft, mildly tender to palpation diffusely. no guarding Extremities: Warm bilaterally, bilateral edema trace now Urinary Catheter: Yes Assessment to: Continue Vascular Central Line Catheter: Yes Assessment to: Continue A/P Assessment and Plan Assessment: 72yF with biventricular failure, severe was in cardiogenic shock when milrinone was weaned. now with persistently elevated lactate, now improving. and remains on milrinone therapy. still clinically appears volume overloaded, PAC placed 11/30, consistent with BiV failure. DCd IVF, start Bumex drip Active problems: Severe biventricular failure Cor pulmonale Cardiogenic shock Acute hypoxic respiratory failure - improving Right lower lobe pneumonia and sepsis Severe hypoglycemia Bilateral pleural effusion R>L Congestive hepatopathy Acute kidney injury secondary to cardiogenic shock Pulmonary hypertension Nonischemic cardiomyopathy with LVEF 20% Metabolic acidosis: Suspect low flow state causing lactic acidosis with probable bowel ischemia Diarrhea - improving. Abdominal pain Tachycardia Thrombocytopenia Plan: Discontinued PA catheter Continue milrinone, vasopressin and dopamine Worsening shock and respiratory failure patient is terminally ill Abscess septic from right lower lobe pneumonia on cefepime now Monitor BMP every 8 hours with potassium supplements s/p right thoracentesis 12/01 with 1.6L fluid removed, transudative watch uop, requires hough Continue BiPAP wean o2 for goal spo2 > 92% Lomotil for diarrhea: likely this is from ischemia, but patient says it gives her symptomatic relief, and she specifically requests it. HIT negative -Restart Lovenox if aggressive care desired Remain in ICU. critically ill. off pathway. CCT 32 MIN Discussed extensively with Dr. Luna, Dr. Desir Critically ill and deteriorating, Appears terminal from end-stage biventricular failure now complicated with sepsis pneumonia acute renal failure encephalopathy. Extended family at the bedside. Per Patient's previous wishes they want to transition to comfort measures. Dr. Desir to place comfort measure orders Anuja Shukla MD Dec 02, 2017 11:40
[2017-12-02] MEDS ORDERED: MORPHINE SULFATE 4 MG/ML INJ IV PUSH ONE (11:45)
[2017-12-02] MEDS ORDERED: ACETAMINOPHEN 650 MG SUPP RECTAL PRN (12:00)
[2017-12-02] MEDS ORDERED: HYOSCYAMINE 0.5 MG/ML AMP IV PUSH PRN (12:00)
[2017-12-02] MEDS ORDERED: MORPHINE SULFATE 8 MG/ML INJ IV PUSH PRN (12:00)
[2017-12-02] MEDS ORDERED: MORPHINE SULFATE 4 MG/ML INJ IV PUSH PRN (12:00)
[2017-12-02] MEDS ORDERED: BISACODYL 10 MG SUPP RECTAL PRN (12:00)
[2017-12-02] MEDS ORDERED: LORazepam 2 MG/ML VIAL IV PUSH PRN ×3 (12:00)
[2017-12-02] MEDS ORDERED: FUROSEMIDE 20 MG/2 ML VIAL IV PUSH PRN (12:00)
--- NOTE | 2017-12-02 12:39 | HHI.HCPN ---
Reason for visit a. To assist with evaluation and management of symptoms including: Dyspnea b. To assist medical decision maker(s) with: better understanding of current medical conditions; weighing benefits/burdens of medical treatment options; making medical treatment decisions. . Subjective/Interval History INTERVAL NOTE: The patient has continued to decline significantly. She appears weaker, remains lethargic, and has evidence of worsening renal and hepatic function. Her creatinine is now 2.2, and the bilirubin has risen to 2.3. She is clearly decompensating and is terminal. . Family/friend interactions I met with all 3 sons and 3 [id number], and all are in agreement that they wish to transition to comfort at this time to allow natural . They want to de-escalate care, removing the pressors and BiPAP. . Advance Directives Living Will: Copy in medical record Health Care Surrogate: Copy in medical record Durable Power of Wheelabrator Operator: Never completed Advance Directive Specifics Health Care Surrogate(s): Primary healthcare surrogate his son Fermin, secondary is son Noel . Documented care wishes: The patient has a living will . Significant change in goals: Transition to comfort to allow natural . Objective Vital Signs Date Time Temp Pulse Resp B/P (MAP) Pulse Ox O2 Delivery O2 Flow Rate FiO2 12/02/17 10:15 0 40 12/02/17 07:24 93 40 12/02/17 07:00 95.0 115 25 101/46 (64) 95 12/02/17 07:00 125 12/02/17 07:00 92 Bi-Pap 40 12/02/17 06:31 113 77/59 12/02/17 06:07 114 84/56 12/02/17 06:00 119 84/53 (63) 12/02/17 05:00 119 84/53 (63) 12/02/17 04:00 97 40 12/02/17 04:00 96.0 129 26 85/54 (64) 94 12/02/17 03:33 131 12/02/17 03:32 97 Bi-Pap 40 12/02/17 02:53 129 110/55 12/02/17 00:30 131 12/02/17 00:24 100 40 12/02/17 00:00 97 Bi-Pap 40 12/02/17 00:00 98.6 121 32 100/72 (81) 100 12/01/17 20:38 99 50 12/01/17 20:00 99.3 112 16 83/55 (64) 98 12/01/17 19:30 97 Bi-Pap 50 12/01/17 19:30 112 12/01/17 18:00 115 91/64 (73) 12/01/17 16:23 118 92/62 12/01/17 15:50 96 100 12/01/17 15:00 98.9 132 18 96/62 (73) 94 12/01/17 15:00 94 Non-Rebreather 100 12/01/17 15:00 132 12/01/17 14:58 137 81/56 12/01/17 14:10 94 Non-Rebreather 15.00 12/01/17 13:48 125 81/57 12/01/17 13:20 80 Venturi Mask 6.00 50 Intake & Output 12/02/17 12/02/17 07:00 19:00 Intake Total 431 ml Output Total 370 ml Balance 61 ml Intake Oral 0 ml IV Total 431 ml Output Urine Total 370 ml # Bowel Movements 1 Physical Exam CONSTITUTIONAL/GENERAL: She quite lethargic and restless now. TUBES/LINES/DRAINS: Nasal O2, IV access, Vazquez SKIN: No jaundice, rashes, or lesions. Ecchymoses on upper extremities. No wounds seen anteriorly. Skin temperature appropriate. Not diaphoretic. ENT: Nose without bleeding or purulent drainage. NECK: Trachea midline. Supple, nontender. No palpable thyroid enlargement or nodularity. CARDIOVASCULAR: Regular rate and rhythm with grade 1 systolic murmur. RESPIRATORY/CHEST: Symmetric, unlabored respirations. Breath sounds equal bilaterally. Some scattered rales GASTROINTESTINAL: Abdomen soft, non-tender, nondistended. No hepato-splenomegaly , or palpable masses. No guarding. Bowel sounds present. GENITOURINARY: Without palpable bladder distension. Vazquez catheter is present NEUROLOGICAL: Lethargic, restless, pulling at things with her hands PSYCHIATRIC: Restlessness and anxiety . . Diagnostic Tests Laboratory Laboratory Tests Test 11/29/17 14:15 11/30/17 04:35 12/01/17 03:50 12/01/17 13:25 Nasal Screen MRSA (PCR) NEGATIVE (NEGATIVE) Staphylococcus aureus (PCR)(LAB) NEGATIVE (NEGATIVE) White Blood Count 6.9 TH/MM3 (4.0-11.0) 5.4 TH/MM3 (4.0-11.0) Red Blood Count 3.28 MIL/MM3 (4.00-5.30) 2.91 MIL/MM3 (4.00-5.30) Hemoglobin 9.9 GM/DL (11.6-15.3) 9.1 GM/DL (11.6-15.3) Hematocrit 30.2 % (35.0-46.0) 26.9 % (35.0-46.0) Mean Corpuscular Volume 92.1 FL (80.0-100.0) 92.3 FL (80.0-100.0) Mean Corpuscular Hemoglobin 30.3 PG (27.0-34.0) 31.2 PG (27.0-34.0) Mean Corpuscular Hemoglobin Concent 32.9 % (32.0-36.0) 33.8 % (32.0-36.0) Red Cell Distribution Width 17.8 % (11.6-17.2) 16.9 % (11.6-17.2) Platelet Count 47 TH/MM3 (150-450) 108 TH/MM3 (150-450) Mean Platelet Volume 10.4 FL (7.0-11.0) 8.5 FL (7.0-11.0) Prothrombin Time 15.6 SEC (9.8-11.6) 14.0 SEC (9.8-11.6) Prothromb Time International Ratio 1.5 RATIO 1.4 RATIO Activated Partial Thromboplast Time 35.7 SEC (24.3-30.1) 35.3 SEC (24.3-30.1) Blood Urea Nitrogen 34 MG/DL (7-18) 34 MG/DL (7-18) Creatinine 1.68 MG/DL (0.50-1.00) 1.71 MG/DL (0.50-1.00) Random Glucose 75 MG/DL (74-106) 80 MG/DL (74-106) Total Protein 6.1 GM/DL (6.4-8.2) 6.5 GM/DL (6.4-8.2) Albumin 3.8 GM/DL (3.4-5.0) 4.1 GM/DL (3.4-5.0) Calcium Level 8.5 MG/DL (8.5-10.1) 8.4 MG/DL (8.5-10.1) Phosphorus Level 2.4 MG/DL (2.5-4.9) Alkaline Phosphatase 72 U/L (45-117) 68 U/L (45-117) Aspartate Amino Transf (AST/SGOT) 70 U/L (15-37) 43 U/L (15-37) Alanine Aminotransferase (ALT/SGPT) 30 U/L (10-53) 24 U/L (10-53) Total Bilirubin 1.2 MG/DL (0.2-1.0) 1.1 MG/DL (0.2-1.0) Sodium Level 139 MEQ/L (136-145) 140 MEQ/L (136-145) Potassium Level 3.3 MEQ/L (3.5-5.1) 3.0 MEQ/L (3.5-5.1) Chloride Level 97 MEQ/L (98-107) 98 MEQ/L (98-107) Carbon Dioxide Level 29.6 MEQ/L (21.0-32.0) 31.1 MEQ/L (21.0-32.0) Anion Gap 12 MEQ/L (5-15) 11 MEQ/L (5-15) Estimat Glomerular Filtration Rate 30 ML/MIN (>89) 29 ML/MIN (>89) Lactic Acid Level 3.5 mmol/L (0.4-2.0) 2.4 mmol/L (0.4-2.0) B-Type Natriuretic Peptide GREATER THAN 5000 PG/ML Pleural Fluid pH 8.5 Pleural Fluid WBC 50 /MM3 (0-10) Pleural Fluid RBC 60 /MM3 (0-0) Pleural Fluid Neutrophils 93 % Pleural Fluid Lymphocytes 7 % Pleural Fluid Total Protein 3.4 GM/DL Pleural Fluid LDH 151 U/L Pleural Fluid Glucose 91 MG/DL Test 12/01/17 13:52 12/01/17 14:14 12/01/17 22:36 12/02/17 06:15 Blood Gas Puncture Site RT RADIAL Blood Gas Patient Temperature 98.6 Blood Gas HCO3 25 mmol/L (22-26) Blood Gas Base Excess 0.9 mmol/L (-2-2) Blood Gas Oxygen Saturation 80 % (90-100) Arterial Blood pH 7.40 (7.380-7.420) Arterial Blood Partial Pressure CO2 42 mmHg (38-42) Arterial Blood Partial Pressure O2 49 mmHg (61-120) Arterial Blood Oxygen Content 12.2 Vol % (12.0-20.0) Arterial Blood Carboxyhemoglobin 1.2 % (0-4) Arterial Blood Methemoglobin 1.2 % (0-2) Blood Gas Hemoglobin 10.9 G/DL (12.0-16.0) Oxygen Delivery Device Venti Mask Blood Gas Liter Flow 6 L/M Blood Gas Inspired Oxygen 50 % Blood Urea Nitrogen 34 MG/DL (7-18) 35 MG/DL (7-18) Creatinine 1.61 MG/DL (0.50-1.00) 1.58 MG/DL (0.50-1.00) Random Glucose 81 MG/DL (74-106) 100 MG/DL (74-106) Calcium Level 8.7 MG/DL (8.5-10.1) 8.8 MG/DL (8.5-10.1) Sodium Level 141 MEQ/L (136-145) 141 MEQ/L (136-145) Potassium Level 3.8 MEQ/L (3.5-5.1) 3.2 MEQ/L (3.5-5.1) Chloride Level 100 MEQ/L (98-107) 98 MEQ/L (98-107) Carbon Dioxide Level 28.6 MEQ/L (21.0-32.0) 24.5 MEQ/L (21.0-32.0) Anion Gap 12 MEQ/L (5-15) 19 MEQ/L (5-15) Estimat Glomerular Filtration Rate 32 ML/MIN (>89) 32 ML/MIN (>89) Prothrombin Time 20.8 SEC (9.8-11.6) Prothromb Time International Ratio 2.1 RATIO Activated Partial Thromboplast Time 41.1 SEC (24.3-30.1) Test 12/02/17 08:15 White Blood Count 10.4 TH/MM3 (4.0-11.0) Red Blood Count 3.55 MIL/MM3 (4.00-5.30) Hemoglobin 11.0 GM/DL (11.6-15.3) Hematocrit 36.1 % (35.0-46.0) Mean Corpuscular Volume 101.7 FL (80.0-100.0) Mean Corpuscular Hemoglobin 31.0 PG (27.0-34.0) Mean Corpuscular Hemoglobin Concent 30.5 % (32.0-36.0) Red Cell Distribution Width 18.8 % (11.6-17.2) Platelet Count 109 TH/MM3 (150-450) Mean Platelet Volume 9.2 FL (7.0-11.0) Neutrophils (%) (Auto) 88.0 % (16.0-70.0) Lymphocytes (%) (Auto) 5.9 % (9.0-44.0) Monocytes (%) (Auto) 5.8 % (0.0-8.0) Eosinophils (%) (Auto) 0.1 % (0.0-4.0) Basophils (%) (Auto) 0.2 % (0.0-2.0) Neutrophils # (Auto) 9.1 TH/MM3 (1.8-7.7) Lymphocytes # (Auto) 0.6 TH/MM3 (1.0-4.8) Monocytes # (Auto) 0.6 TH/MM3 (0-0.9) Eosinophils # (Auto) 0.0 TH/MM3 (0-0.4) Basophils # (Auto) 0.0 TH/MM3 (0-0.2) CBC Comment AUTO DIFF Differential Total Cells Counted 100 Neutrophils % (Manual) 87 % (16-70) Band Neutrophils % 3 % (0-6) Lymphocytes % 6 % (9-44) Monocytes % 4 % (0-8) Neutrophils # (Manual) 9.4 TH/MM3 (1.8-7.7) Nucleated Red Blood Cells 24 /100 WBC (0-0) Differential Comment FINAL DIFF MANUAL Platelet Estimate LOW (NORMAL) Platelet Morphology Comment ENLARGED (NORMAL) Polychromasia 2.6 % (0.0-1.9) Red Cell Morphology Comment (NORMAL) Blood Urea Nitrogen 38 MG/DL (7-18) Creatinine 2.29 MG/DL (0.50-1.00) Random Glucose 11 MG/DL (74-106) Total Protein 7.4 GM/DL (6.4-8.2) Albumin 5.1 GM/DL (3.4-5.0) Calcium Level 9.1 MG/DL (8.5-10.1) Alkaline Phosphatase 66 U/L (45-117) Aspartate Amino Transf (AST/SGOT) 47 U/L (15-37) Alanine Aminotransferase (ALT/SGPT) 20 U/L (10-53) Total Bilirubin 2.3 MG/DL (0.2-1.0) Sodium Level 141 MEQ/L (136-145) Potassium Level 4.8 MEQ/L (3.5-5.1) Chloride Level 101 MEQ/L (98-107) Carbon Dioxide Level 7.5 MEQ/L (21.0-32.0) Anion Gap 33 MEQ/L (5-15) Estimat Glomerular Filtration Rate 21 ML/MIN (>89) Result Diagram: 12/02/17 0815 12/02/17 0815 Microbiology Microbiology Date/Time Source Procedure Growth Status 12/01/17 16:04 Blood Peripheral Aerobic Blood Culture - Preliminary NO GROWTH IN 1 DAY Resulted 12/01/17 16:04 Blood Peripheral Anaerobic Blood Culture - Preliminary NO GROWTH IN 1 DAY Resulted 12/01/17 16:00 Blood Peripheral Aerobic Blood Culture - Preliminary NO GROWTH IN 1 DAY Resulted 12/01/17 16:00 Blood Peripheral Anaerobic Blood Culture - Preliminary NO GROWTH IN 1 DAY Resulted 12/01/17 13:25 Fluid Pleural Fluid Fungal Smear - Final NO FUNGAL ELEMENTS SEEN. Resulted 12/01/17 13:25 Fluid Pleural Fluid Fungal Culture Pending Resulted 12/01/17 13:25 Fluid Pleural Fluid Acid Fast Stain Pending Received 12/01/17 13:25 Fluid Pleural Fluid Mycobacterial Culture Pending Received 12/01/17 13:25 Fluid Pleural Fluid Gram Stain - Final Resulted 12/01/17 13:25 Fluid Pleural Fluid Body Fluid Culture Pending Resulted Imaging Last Impressions Chest X-Ray 12/02/17 0600 Signed Impressions: Service Date/Time: November 03:34 - CONCLUSION: Worsening consolidation at the right mid and lower lung with a at least mild right pleural effusion. No pneumothorax is seen. Vazquez Crow MD Abdomen/Pelvis CT 11/23/17 0000 Signed Impressions: Service Date/Time: Thursday, November 23, 2017 21:30 - CONCLUSION: 1. No obstruction or acute inflammatory changes are seen in the abdomen or pelvis. 2. Apparent complex cystic and solid mass of the mid zone of the right kidney. A followup MRI of the abdomen is recommended with and without contrast in approximately 3 months. This may be helpful in further characterizing a small, probably benign but nonspecific hypodensity of the liver. 3. Nonspecific right greater than left pleural effusions and basilar atelectasis. There is an area of nonenhancing right lower lobe pulmonary parenchyma compatible with pneumonia. Infection and post obstructive process would be in the differential. After treatment for presumed pneumonia, a followup CT of the chest, preferably with intravenous contrast, is recommended within the next couple of months, sooner if felt clinically indicated. 4. Also a nonspecific moderate size pericardial effusion. Vazquez Perdue MD Assessment and Plan Disease Oriented Problem List: (1) cardiomyopathy (2) congestive failure with pronounced right side failure symptoms (3) low flow state, with some hepatic, renal, and GI effects (4) CHF, first diagnosed August 2017 (5) right kidney cyst on CT scan, possibly complex (6) colitis, possible ischemic (7) GERD (8) history of hypertension (9) history of hyperthyroid (10) peripheral neuropathy (11) history of B12 deficiency (12) history of avascular necrosis left hip 2002 Symptom Scale: (1) dyspnea 0-10 Scale: 1 (2) weakness 0-10 Scale: 6 Pertinent Non-Medical Issues Psychosocial: , 3 sons living locally, 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 She has a [employer] background, but has been [employer] for many years, currently being supported by her juvenile justice specialist. Legal: The patient has capacity for decision-making. She has designated her sons Fermin and Noel as primary and secondary HCS respectively. Ethical issues impacting care: None . Important Contacts Son: Fermin Bernard [phone] Son: Noel Bernard [phone] . Prognosis She is terminal now. . Code Status: No Code Plan * DO NOT RESUSCITATE * DECISION-MAKING: The patient now does not have capacity for decision-making. She has designated her sons Fermin and Noel as primary and secondary HCS respectively, but all of the family is participating and in agreement. * GOALS: All of the family is requesting a transition to comfort care, de- escalating care, specifically requesting removal of the pressors another IV infusions, and removal of the BiPAP after comfort medications are provided. * SYMPTOMS: I have written orders for morphine and Ativan to address the restlessness, anxiety, and dyspnea. * The IV infusions and the BiPAP will be removed, the focus will now be on comfort to allow natural and peaceful .. * Hospice has been consulted. * Palliative Care will continue to follow the patient during this hospitalization. . Time Spent Total Floor Time (mins): 44 Face to Face Time (mins): 13 >50% Counseling/Coord of Care: Yes (d/w Dr. Shukla and with RN) Attestation To help prompt me to consider important information that might be impacting today's encounter and assessment, information from prior notes written by myself or my colleagues may have been "brought forward" into today's note. My signature on this note, however, is an attestation that I personally performed the exam, history, and/or decision-making noted today, and, unless otherwise indicated, the interactions with patient, family, and staff as well as the review of records all occurred today. I also attest that the listed assessment and stated plan reflect my best clinical judgment today based on the combination of historical information, prior notes, and today's exam/ interactions. When time spent is documented, it refers only to time spent today by the signer, or if indicated, combined time spent today by collaborating physician/nurse practitioner. Evelyn Desir MD Dec 02, 2017 12:39
[2017-12-02 18:54] LABS: AMYLASE BODY FLUID 19 U/L; AMYLASE BODY FLUID TYPE PLEURAL
[2017-12-02] MEDS: LORazepam 2 MG/ML VIAL IV PUSH SCH (20:00)
[2017-12-03] MEDS: MORPHINE SULFATE 4 MG/ML INJ IV PUSH SCH ×3 (03:03→10:03)
[2017-12-03] MEDS: LORazepam 2 MG/ML VIAL IV PUSH SCH ×2 (04:19→10:04)
--- NOTE | 2017-12-03 08:31 | HHI.CCPN ---
Subjective Remarks/Hospital Course Hospital Course: 72-year-old female with a medical history significant for CHF, cardiomyopathy who was admitted initially at [facility] from November 08 And subsequently discharged. She has been very weak since her discharge and has had diarrhea for several months. She has also had nausea and poor appetite as well as long-standing shortness of breath. She presented back on November 23, 2017 to [facility] ER with generalized weakness as well as some shortness of breath. She had significant edema in her lower extremities. She was reportedly admitted with a sepsis at [facility] in October 2017 and CHF. Her LVEF is noted to be 20%. During previous hospitalization she was treated with IV antibiotics and pressors. She was also treated with antibiotics at that time. Patient was admitted by [facility] on November 23 and was evaluated by cardiology. She was initiated on diuretics, IV albumin as well as milrinone gtt. Initially she received Rocephin and Flagyl which was subsequently stopped. Milrinone gtt. was titrated off at 12 noon on 11/27. Patient developed worsening shortness of breath and some altered mental status and abdominal pain subsequently. She remained on 2 L nasal cannula however was slightly tachypneic. ABG was done for further evaluation around 6 PM which revealed severe metabolic acidosis with pH 7.16, PCO2 18, PO2 98 and bicarbonate 6. Critical care was consulted on 11/27 around 6:[address] Barbour was contacted by [employer] N ordered 5 amps of sodium bicarbonate IV push. Patient's milrinone was resumed at 0.5 mics per KG per minute. I evaluated the patient after being notified of the consult and ordered stat labs and chest x-ray. When I evaluated the patient she was encephalopathic/lethargic with tachypnea. She had just received 5 A of sodium bicarbonate IV push. Stat labs are pending. Subjective: 11/28: remains in distress. lactate still elevated, and although clearing, very slowly. delayed clearance suggestive of higher mortality rate. poor urine output despite increasing doses of aggressive diuresis. had long discussion with patient, and she states she knows her heart is failing. had discussion with Dr. Barbour, and we both agree patient will need left and right heart caths in the AM and get objective evidence of PVR, PCWP and cardiac filling and output. she may need dialysis in order to offload intravascular volume from right heart failure. 11/29: uop improved from overnight, now 50-60cc/hr. remains on lasix drip. NPO for possible LHC/RHC. Cr remains elevated, but stable: likely ARISTIDES from ATN from poor perfusion 48h ago. patient subjectively feels improved and complaining of less fatigue and sob. 11/30: Remains critically ill, MAP 60-61. Creat 1.68. Getting fluids per Dr. Luna in attempt to improve creat for Cath. Will place central line of pressor/inotrope infusion and also CVP monitoring. UO 940 ml in 24 hours 12/01: PAC placed yesterday, PA pressures 38/29 now. Last PCWP was 36. IVF discontinue, IV Lasix 60 mg ordered. Discussed with Dr. Luna- agrees with management plan, he wants to use Dopamine at low dose. I will also start on Bumex gtt, with IV Albumin. Plan for bedside thoracentesis today 12/02: Critically ill and deteriorating, Initially good output on Bumex, now anuric, hypoglycemic (blood glucose 11). BiPAP dependent. Appears terminally ill. Extended family at the bedside. Per Patient's previous wishes they want to transition to comfort measures. Discussed with Dr. Desir and also discussed with Dr. Luna. All in agreement to transition to comfort measures. 12/03: BiPAP and vasopressors/inotropes discontinued yesterday. Systolic blood pressure in 60s. Patient is hypopneic. Will transfer to hospice with comfort measures Objective Vital Signs Date Time Temp Pulse Resp B/P (MAP) Pulse Ox O2 Delivery O2 Flow Rate FiO2 12/03/17 08:27 21 12/03/17 03:00 Room Air 12/02/17 20:00 96.5 121 10 67/39 (48) 12/02/17 11:00 92 12/01/17 14:10 15.00 Intake and Output 12/03/17 12/03/17 12/04/17 08:00 16:00 00:00 Intake Total 0 ml Output Total 0 ml Balance 0 ml Result Diagram: 12/02/1781412/02/17814 Objective Remarks HEENT/Neuro: No pallor or icterus, tongue dry, on RA. SaO2 not recordable. Somnolent, unresponsive Neck: RIJ introducer, PAC removed Chest/pulmonary: Diminished breath sounds at the bases. Hypopneic Cardiovascular: Tachycardic. No murmurs. SBP 60-65 GI/abdomen: Soft, mildly tender to palpation diffusely. no guarding Extremities: Warm bilaterally, bilateral edema trace now A/P Assessment and Plan Assessment: 72yF with biventricular failure, severe was in cardiogenic shock when milrinone was weaned. now with persistently elevated lactate, now improving. and remains on milrinone therapy. still clinically appears volume overloaded, PAC placed 11/30, consistent with BiV failure. DCd IVF, start Bumex drip Active problems: Severe biventricular failure Cor pulmonale Cardiogenic shock Acute hypoxic respiratory failure - improving Right lower lobe pneumonia and sepsis Severe hypoglycemia Bilateral pleural effusion R>L Congestive hepatopathy Acute kidney injury secondary to cardiogenic shock Pulmonary hypertension Nonischemic cardiomyopathy with LVEF 20% Metabolic acidosis: Suspect low flow state causing lactic acidosis with probable bowel ischemia Diarrhea - improving. Abdominal pain Tachycardia Thrombocytopenia Plan: Discontinued PA catheter. Discontinued milrinone, vasopressin and dopamine DCd BiPAP 12/02 Anxiety and pain control with Ativan and morphine Transfer to Hospice Patient is terminally ill Level 1 Anuja Shukla MD Dec 03, 2017 08:31
--- NOTE | 2017-12-03 08:32 | HHI.DS ---
Discharge Summary Admission Date Nov 23, 2017 at 21:45 Discharge Date: Dec 03, 2017 Admitting Diagnosis CHF exacerbation, lactic acidosis, hypotension (1) CHF exacerbation ICD Code: I50.9 - Heart failure, unspecified Status: Acute (2) Biventricular heart failure ICD Code: I50.82 - Biventricular heart failure (3) Hypotension ICD Code: I95.9 - Hypotension, unspecified Status: Acute (4) Acute hypoxemic respiratory failure ICD Code: J96.01 - Acute respiratory failure with hypoxia (5) Acute renal failure ICD Code: N17.9 - Acute kidney failure, unspecified (6) Cardiogenic shock ICD Code: R57.0 - Cardiogenic shock (7) probable pneumonia Diagnosis: Principal (8) Acute encephalopathy ICD Code: G93.40 - Encephalopathy, unspecified (9) Lactic acidosis ICD Code: E87.2 - Acidosis Status: Acute (10) Hypomagnesemia ICD Code: E83.42 - Hypomagnesemia Status: Acute (11) Cardiomyopathy ICD Code: I42.9 - Cardiomyopathy, unspecified Diagnosis: Secondary Procedures Right IJ introducer and PA catheter placement 11/30/17 Right thoracentesis 12/01/17 Brief History 72-year-old female with a medical history significant for CHF, cardiomyopathy who was admitted initially at [facility] from November 08 And subsequently discharged. She has been very weak since her discharge and has had diarrhea for several months. She has also had nausea and poor appetite as well as long-standing shortness of breath. She presented back on November 23, 2017 to [facility] ER with generalized weakness as well as some shortness of breath. She had significant edema in her lower extremities. She was reportedly admitted with a sepsis at [facility] in October 2017 and CHF. Her LVEF is noted to be 20%. During previous hospitalization she was treated with IV antibiotics and pressors. She was also treated with antibiotics at that time. Patient was admitted by [facility] hospitalists on November 23 and was evaluated by cardiology. She was initiated on diuretics, IV albumin as well as milrinone gtt. Initially she received Rocephin and Flagyl which was subsequently stopped. Milrinone gtt. was titrated off at 12 noon on 11/27. Patient developed worsening shortness of breath and some altered mental status and abdominal pain subsequently. She remained on 2 L nasal cannula however was slightly tachypneic. ABG was done for further evaluation around 6 PM which revealed severe metabolic acidosis with pH 7.16, PCO2 18, PO2 98 and bicarbonate 6. Critical care was consulted on 11/27 around 6:[address] Barbour was contacted by [employer] DIRECTOR N ordered 5 amps of sodium bicarbonate IV push. Patient's milrinone was resumed at 0.5 mics per KG per minute. I evaluated the patient after being notified of the consult and ordered stat labs and chest x-ray. When I evaluated the patient she was encephalopathic/lethargic with tachypnea. She had just received 5 A of sodium bicarbonate IV push. Stat labs are pending. CBC/BMP: 12/02/17 0815 12/02/17 0815 Significant Findings Laboratory Tests Test 12/01/17 03:50 12/01/17 13:25 12/01/17 13:52 12/01/17 14:14 Red Blood Count 2.91 MIL/MM3 (4.00-5.30) Hemoglobin 9.1 GM/DL (11.6-15.3) Hematocrit 26.9 % (35.0-46.0) Platelet Count 108 TH/MM3 (150-450) Prothrombin Time 14.0 SEC (9.8-11.6) Activated Partial Thromboplast Time 35.3 SEC (24.3-30.1) Blood Urea Nitrogen 34 MG/DL (7-18) 34 MG/DL (7-18) Creatinine 1.71 MG/DL (0.50-1.00) 1.61 MG/DL (0.50-1.00) Calcium Level 8.4 MG/DL (8.5-10.1) Aspartate Amino Transf (AST/SGOT) 43 U/L (15-37) Total Bilirubin 1.1 MG/DL (0.2-1.0) Potassium Level 3.0 MEQ/L (3.5-5.1) Estimat Glomerular Filtration Rate 29 ML/MIN (>89) 32 ML/MIN (>89) Lactic Acid Level 2.4 mmol/L (0.4-2.0) Pleural Fluid WBC 50 /MM3 (0-10) Pleural Fluid RBC 60 /MM3 (0-0) Blood Gas Oxygen Saturation 80 % (90-100) Arterial Blood Partial Pressure O2 49 mmHg (61-120) Blood Gas Hemoglobin 10.9 G/DL (12.0-16.0) Test 1/17/18 22:36 12/02/17 06:15 12/02/17 08:15 Blood Urea Nitrogen 35 MG/DL (7-18) 38 MG/DL (7-18) Creatinine 1.58 MG/DL (0.50-1.00) 2.29 MG/DL (0.50-1.00) Potassium Level 3.2 MEQ/L (3.5-5.1) Anion Gap 19 MEQ/L (5-15) 33 MEQ/L (5-15) Estimat Glomerular Filtration Rate 32 ML/MIN (>89) 21 ML/MIN (>89) Prothrombin Time 20.8 SEC (9.8-11.6) Activated Partial Thromboplast Time 41.1 SEC (24.3-30.1) Red Blood Count 3.55 MIL/MM3 (4.00-5.30) Hemoglobin 11.0 GM/DL (11.6-15.3) Mean Corpuscular Volume 101.7 FL (80.0-100.0) Mean Corpuscular Hemoglobin Concent 30.5 % (32.0-36.0) Red Cell Distribution Width 18.8 % (11.6-17.2) Platelet Count 109 TH/MM3 (150-450) Neutrophils (%) (Auto) 88.0 % (16.0-70.0) Lymphocytes (%) (Auto) 5.9 % (9.0-44.0) Neutrophils # (Auto) 9.1 TH/MM3 (1.8-7.7) Lymphocytes # (Auto) 0.6 TH/MM3 (1.0-4.8) Neutrophils % (Manual) 87 % (16-70) Lymphocytes % 6 % (9-44) Neutrophils # (Manual) 9.4 TH/MM3 (1.8-7.7) Nucleated Red Blood Cells 24 /100 WBC (0-0) Platelet Estimate LOW (NORMAL) Platelet Morphology Comment ENLARGED (NORMAL) Polychromasia 2.6 % (0.0-1.9) Random Glucose 11 MG/DL (74-106) Albumin 5.1 GM/DL (3.4-5.0) Aspartate Amino Transf (AST/SGOT) 47 U/L (15-37) Total Bilirubin 2.3 MG/DL (0.2-1.0) Carbon Dioxide Level 7.5 MEQ/L (21.0-32.0) Imaging Chest X-Ray 12/02/17 0600 Signed Impressions: Service Date/Time: November 03:34 - CONCLUSION: Worsening consolidation at the right mid and lower lung with a at least mild right pleural effusion. No pneumothorax is seen. Vazquez Crow MD Abdomen/Pelvis CT 11/23/17 0000 Signed Impressions: Service Date/Time: Thursday, November 23, 2017 21:30 - CONCLUSION: 1. No obstruction or acute inflammatory changes are seen in the abdomen or pelvis. 2. Apparent complex cystic and solid mass of the mid zone of the right kidney. A followup MRI of the abdomen is recommended with and without contrast in approximately 3 months. This may be helpful in further characterizing a small, probably benign but nonspecific hypodensity of the liver. 3. Nonspecific right greater than left pleural effusions and basilar atelectasis. There is an area of nonenhancing right lower lobe pulmonary parenchyma compatible with pneumonia. Infection and post obstructive process would be in the differential. After treatment for presumed pneumonia, a followup CT of the chest, preferably with intravenous contrast, is recommended within the next couple of months, sooner if felt clinically indicated. 4. Also a nonspecific moderate size pericardial effusion. Vazquez Perdue MD PE at Discharge HEENT/Neuro: No pallor or icterus, tongue dry, on RA. SaO2 not recordable. Somnolent, unresponsive Neck: RIJ introducer, PAC removed Chest/pulmonary: Diminished breath sounds at the bases. Hypopneic Cardiovascular: Tachycardic. No murmurs. SBP 60-65 GI/abdomen: Soft, mildly tender to palpation diffusely. no guarding Extremities: Warm bilaterally, bilateral edema trace now Transfer Summary see hospital course Hospital Course Hospital Course: 72-year-old female with a medical history significant for CHF, cardiomyopathy who was admitted initially at [facility] from November 08 And subsequently discharged. She has been very weak since her discharge and has had diarrhea for several months. She has also had nausea and poor appetite as well as long-standing shortness of breath. She presented back on November 23, 2017 to [facility] ER with generalized weakness as well as some shortness of breath. She had significant edema in her lower extremities. She was reportedly admitted with a sepsis at [facility] in October 2017 and CHF. Her LVEF is noted to be 20%. During previous hospitalization she was treated with IV antibiotics and pressors. She was also treated with antibiotics at that time. Patient was admitted by [facility] hospitalists on November 23 and was evaluated by cardiology. She was initiated on diuretics, IV albumin as well as milrinone gtt. Initially she received Rocephin and Flagyl which was subsequently stopped. Milrinone gtt. was titrated off at 12 noon on 11/27. Patient developed worsening shortness of breath and some altered mental status and abdominal pain subsequently. She remained on 2 L nasal cannula however was slightly tachypneic. ABG was done for further evaluation around 6 PM which revealed severe metabolic acidosis with pH 7.16, PCO2 18, PO2 98 and bicarbonate 6. Critical care was consulted on 11/27 around 6:[address] Barbour was contacted by [employer] DIRECTOR N ordered 5 amps of sodium bicarbonate IV push. Patient's milrinone was resumed at 0.5 mics per KG per minute. I evaluated the patient after being notified of the consult and ordered stat labs and chest x-ray. When I evaluated the patient she was encephalopathic/lethargic with tachypnea. She had just received 5 A of sodium bicarbonate IV push. Stat labs are pending. Subjective: 11/28: remains in distress. lactate still elevated, and although clearing, very slowly. delayed clearance suggestive of higher mortality rate. poor urine output despite increasing doses of aggressive diuresis. had long discussion with patient, and she states she knows her heart is failing. had discussion with Dr. Barbour, and we both agree patient will need left and right heart caths in the AM and get objective evidence of PVR, PCWP and cardiac filling and output. she may need dialysis in order to offload intravascular volume from right heart failure. 11/29: uop improved from overnight, now 50-60cc/hr. remains on lasix drip. NPO for possible LHC/RHC. Cr remains elevated, but stable: likely ARISTIDES from ATN from poor perfusion 48h ago. patient subjectively feels improved and complaining of less fatigue and sob. 11/30: Remains critically ill, MAP 60-61. Creat 1.68. Getting fluids per Dr. Luna in attempt to improve creat for Cath. Will place central line of pressor/inotrope infusion and also CVP monitoring. UO 940 ml in 24 hours 12/01: PAC placed yesterday, PA pressures 38/29 now. Last PCWP was 36. IVF discontinue, IV Lasix 60 mg ordered. Discussed with Dr. Luna- agrees with management plan, he wants to use Dopamine at low dose. I will also start on Bumex gtt, with IV Albumin. Plan for bedside thoracentesis today 12/02: Critically ill and deteriorating, Initially good output on Bumex, now anuric, hypoglycemic (blood glucose 11). BiPAP dependent. Appears terminally ill. Extended family at the bedside. Per Patient's previous wishes they want to transition to comfort measures. Discussed with Dr. Desir and also discussed with Dr. Luna. All in agreement to transition to comfort measures. 12/03: BiPAP and vasopressors/inotropes discontinued yesterday. Systolic blood pressure in 60s. Patient is hypopneic. Will transfer to hospice with comfort measures. Appears comfortable but terminally ill Pt Condition on Discharge: Deteriorating Discharge Disposition: Hospice/Med Facility Discharge Instructions DIET: Follow Instructions for: Nothing By Mouth Activities you can perform: Continue Bedrest Anuja Shukla MD Dec 03, 2017 08:32
[2017-12-03 09:00] VITALS: BP 56/35; PULSE 119; RESP 12; TEMP 98.1
== END 2017-12-03 10:45 | disposition hospice, inpatient (51) | DRG 291 ==
LOC: NEPE 18:25 → NEDA 21:45 → HCIS 11-24 00:36 → HCVI 11-24 18:00
PROVIDERS: ADMIT Hospitalist; ATTEND Family Medicine Hospice and Palliative Medicine
PROC: 02HV33Z Insertion of Infusion Device into Superior Vena Cava, Percutaneous Approach (ICD-10-PCS; principal; 2017-11-30)
PROC: 02HQ32Z Insertion of Monitoring Device into Right Pulmonary Artery, Percutaneous Approach (ICD-10-PCS; 2017-11-30)
PROC: 30233R1 Transfusion of Nonautologous Platelets into Peripheral Vein, Percutaneous Approach (ICD-10-PCS; 2017-11-30)
PROC: 0W993ZX Drainage of Right Pleural Cavity, Percutaneous Approach, Diagnostic (ICD-10-PCS; 2017-12-01)
DX: I50.43 Acute on chronic combined systolic (congestive) and diastolic (congestive) heart failure (principal); R57.0 Cardiogenic shock; J96.01 Acute respiratory failure with hypoxia; N17.0 Acute kidney failure with tubular necrosis; A41.9 Sepsis, unspecified organism; G93.40 Encephalopathy, unspecified; I95.9 Hypotension, unspecified; J18.9 Pneumonia, unspecified organism; E87.2 Acidosis; J90 Pleural effusion, not elsewhere classified; I42.8 Other cardiomyopathies; D69.6 Thrombocytopenia, unspecified; D45 Polycythemia vera; E83.42 Hypomagnesemia; K52.9 Noninfective gastroenteritis and colitis, unspecified; I50.82 Biventricular heart failure; R60.0 Localized edema; R53.1 Weakness; E78.5 Hyperlipidemia, unspecified; I11.0 Hypertensive heart disease with heart failure; I27.29 Other secondary pulmonary hypertension; I27.81 Cor pulmonale (chronic); E16.2 Hypoglycemia, unspecified; K76.1 Chronic passive congestion of liver; I50.84 End stage heart failure; R00.0 Tachycardia, unspecified; R10.13 Epigastric pain; K21.9 Gastro-esophageal reflux disease without esophagitis; Z51.5 Encounter for palliative care; Z66 Do not resuscitate; E86.0 Dehydration; G62.9 Polyneuropathy, unspecified; Z88.1 Allergy status to other antibiotic agents; Z88.5 Allergy status to narcotic agent; Z88.0 Allergy status to penicillin
CPT/HCPCS: 36430; 36600; 71045; 74177; 80048; 80053; 80162; 81001; 82150; 82550; 82805; 82945; 82948; 83605; 83615; 83690; 83735; 83880; 83986; 84100; 84132; 84157; 84439; 84443; 84481; 84484; 85007; 85025; 85027; 85610; 85730; 86022; 86038; 86140; 87015; 87040; 87070; 87102; 87116; 87205; 87206; 87493; 87640; 87641; 88112; 89051; 93005; 93306; 94002; 94003; 96374; C1769; C9113; J0692; J0696; J1120; J1160; J1205; J1265; J1650; J1940; J2060; J2260; J2270; J2405; J3475; J3480; J7030; P9035; P9047; Q9967